=== PATIENT | male | born 1950 | race Caucasian/White ===

== ENCOUNTER 2020-01-08 10:55 | Outpatient (CLI) | payer MEDICARE, SELFPAY ==
[2020-01-08 12:53] VITALS: O2SAT 88; O2SAT 93
== END 2020-01-08 10:56 | disposition home or self-care (01) ==
LOC: RT 10:59
PROVIDERS: Family Provider Nurse Practitioner; PCP Nurse Practitioner; Visit Provider Internal Medicine Critical Care Medicine
DX: R06.02 Shortness of breath (principal)
CPT/HCPCS: 94010; 94729

== ENCOUNTER → 2020-02-05 15:17 | Outpatient (BNVA) | payer MEDICARE, SELFPAY | PROVIDERS: Family Provider Nurse Practitioner; PCP Nurse Practitioner; Visit Provider Nurse Practitioner | DX: E11.65 Type 2 diabetes mellitus with hyperglycemia (principal); I10 Essential (primary) hypertension; I25.10 Atherosclerotic heart disease of native coronary artery without angina pectoris; Z98.61 Coronary angioplasty status; M54.32 Sciatica, left side; R12 Heartburn | CPT/HCPCS: 80053; 80061; 81003; 83036; 83721 ==

== ENCOUNTER → 2020-07-19 09:01 | Outpatient (BNVA) | payer MEDICARE, SELFPAY | PROVIDERS: Family Provider Nurse Practitioner; PCP Nurse Practitioner; Visit Provider Nurse Practitioner | DX: E11.65 Type 2 diabetes mellitus with hyperglycemia (principal); I10 Essential (primary) hypertension; I25.10 Atherosclerotic heart disease of native coronary artery without angina pectoris; M54.32 Sciatica, left side; Z98.61 Coronary angioplasty status; R12 Heartburn | CPT/HCPCS: 80053; 80061; 81000; 83036; 83721 ==

== ENCOUNTER → 2020-12-31 13:58 | Outpatient (BNVA) | payer MEDICARE, SELFPAY | PROVIDERS: Family Provider Nurse Practitioner; PCP Nurse Practitioner; Visit Provider Nurse Practitioner | DX: E11.65 Type 2 diabetes mellitus with hyperglycemia (principal); I25.10 Atherosclerotic heart disease of native coronary artery without angina pectoris; I10 Essential (primary) hypertension; M54.32 Sciatica, left side; R12 Heartburn; J30.9 Allergic rhinitis, unspecified | CPT/HCPCS: 80053; 80061; 81000; 83036; 83721 ==

== ENCOUNTER → 2021-04-01 13:18 | Outpatient (BNVA) | payer MEDICARE, MEDICAID, SELFPAY | PROVIDERS: Family Provider Nurse Practitioner; PCP Nurse Practitioner; Visit Provider Nurse Practitioner | DX: I10 Essential (primary) hypertension (principal); E11.65 Type 2 diabetes mellitus with hyperglycemia; I25.10 Atherosclerotic heart disease of native coronary artery without angina pectoris; M54.32 Sciatica, left side; R12 Heartburn; J30.9 Allergic rhinitis, unspecified; G25.81 Restless legs syndrome | CPT/HCPCS: 80053; 80061; 81000; 83036; 83721 ==

== ENCOUNTER → 2021-07-01 14:40 | Outpatient (BNVA) | payer MEDICARE, MEDICAID, SELFPAY | PROVIDERS: Family Provider Nurse Practitioner; PCP Nurse Practitioner; Visit Provider Nurse Practitioner | DX: E11.65 Type 2 diabetes mellitus with hyperglycemia (principal); I10 Essential (primary) hypertension; I25.10 Atherosclerotic heart disease of native coronary artery without angina pectoris; J30.9 Allergic rhinitis, unspecified; R12 Heartburn; G25.81 Restless legs syndrome; R39.11 Hesitancy of micturition | CPT/HCPCS: 80053; 80061; 81000; 83036; 83721; 85025 ==

== ENCOUNTER → 2021-09-29 13:23 | Outpatient (BNVA) | payer MEDICARE, MEDICAID, SELFPAY | PROVIDERS: Family Provider Nurse Practitioner; PCP Nurse Practitioner; Visit Provider Nurse Practitioner | DX: E11.65 Type 2 diabetes mellitus with hyperglycemia (principal); E55.9 Vitamin D deficiency, unspecified | CPT/HCPCS: 80053; 81000; 82306; 83036 ==

== ENCOUNTER → 2021-10-15 14:14 | Outpatient (BNVA) | payer MEDICARE, MEDICAID, SELFPAY | PROVIDERS: Family Provider Nurse Practitioner; PCP Nurse Practitioner; Referring Provider Nurse Practitioner; Visit Provider Orthopaedic Surgery | DX: M25.561 Pain in right knee (principal); M25.562 Pain in left knee; M17.0 Bilateral primary osteoarthritis of knee; M21.162 Varus deformity, not elsewhere classified, left knee; M21.161 Varus deformity, not elsewhere classified, right knee | CPT/HCPCS: 73560; 73565 ==

== ENCOUNTER → 2021-11-11 10:52 | Outpatient (BNVA) | payer MEDICARE, SELFPAY | PROVIDERS: Family Provider Nurse Practitioner; PCP Nurse Practitioner; Visit Provider Nurse Practitioner | DX: Z20.822 Contact with and (suspected) exposure to COVID-19 (principal) | CPT/HCPCS: 87635 ==

== ENCOUNTER 2021-11-13 08:30 | Outpatient (CLI) | payer MEDICARE, SELFPAY ==
[2021-11-13 08:38] VITALS: BP 148/74; PULSE 111; RESP 22; TEMP 35.7; O2SAT 99; BMI 38.0
[2021-11-13 10:00] VITALS: BP 137/78; PULSE 106; RESP 21; TEMP 35.7; O2SAT 97
[2021-11-13 11:00] VITALS: BP 140/78; PULSE 110; RESP 20; TEMP 36.1; O2SAT 99
== END 2021-11-13 08:31 | disposition home or self-care (01) ==
LOC: OPS 08:31
PROVIDERS: PCP Nurse Practitioner; Visit Provider Nurse Practitioner
DX: U07.1 COVID-19 (principal)
CPT/HCPCS: 96365

== ENCOUNTER 2021-12-03 07:50 | Outpatient (CLI) | payer MEDICARE, MEDICAID, SELFPAY ==
--- NOTE | 2021-12-03 07:58 | CT_ITS ---
WS: [id number] CT HEAD TECHNIQUE: Noncontrast CT of the head obtained from the skullbase to the vertex. CLINICAL INFORMATION: R51.9 - Headache, unspecified COMPARISON: February 19, 2017 DLP: 2433.[address] scans at [facility] use at least one of these dose optimization techniques: automated e xposure control; mA and/or kV adjustment per patient size (includes targeted exams where dose is matc hed to clinical indication); or iterative reconstruction. FINDINGS: No evidence of intracranial hemorrhage or mass effect. Ventricular system and basal cisterns are loomis nt. Mild small vessel changes with mild parenchymal volume loss. No extra-axial fluid collections. No evidence of mass or mass effect. 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 Small amount of low-attenuation change in this area along th e anterior limb internal capsule likely due to a small amount of chronic ischemia or progressed small vessel change. No evidence of recent hemorrhage. Paranasal sinuses and mastoid air cells are well aerated. Secretions in the sphenoid sinus. .Normal v isualized soft tissues. CT/CT head wo con* [id number] IMPRESSION: 1. No evidence of intracranial hemorrhage or mass effect. 2. Mild small vessel changes with mild parenchymal volume loss. 3. 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 No evidence of recent hemorrhage. Small amount of low-attenuation change in this area robert g the anterior limb left internal capsule likely due to progressed small vessel changes or small amount of chronic ischemia. 4. No other significant changes from previous. 5. No acute intracranial findings.
== END 2021-12-03 07:51 | disposition home or self-care (01) ==
PROVIDERS: PCP Nurse Practitioner; Visit Provider Nurse Practitioner
DX: R51.9 Headache, unspecified (principal); Q28.3 Other malformations of cerebral vessels
CPT/HCPCS: 70450

== ENCOUNTER → 2022-01-19 15:11 | Outpatient (BNVA) | payer MEDICARE, MEDICAID, SELFPAY | PROVIDERS: PCP Nurse Practitioner; Visit Provider Nurse Practitioner | DX: I25.10 Atherosclerotic heart disease of native coronary artery without angina pectoris (principal); I10 Essential (primary) hypertension; M54.32 Sciatica, left side; E11.65 Type 2 diabetes mellitus with hyperglycemia; R12 Heartburn; J30.9 Allergic rhinitis, unspecified; R39.11 Hesitancy of micturition | CPT/HCPCS: 80053; 81000; 83036; 84443 ==

== ENCOUNTER → 2022-04-01 09:45 | Outpatient (BNVA) | payer MEDICARE, MEDICAID, SELFPAY | PROVIDERS: PCP Nurse Practitioner; Visit Provider Nurse Practitioner | DX: M25.512 Pain in left shoulder (principal); E11.65 Type 2 diabetes mellitus with hyperglycemia | CPT/HCPCS: 73030; 80053; 80061; 81000; 83036; 83721; 84443 ==

== ENCOUNTER → 2022-05-19 13:23 | Outpatient (BNVA) | payer MEDICARE, SELFPAY | PROVIDERS: PCP Nurse Practitioner; Referring Provider Nurse Practitioner; Visit Provider Orthopaedic Surgery | DX: S43.402A Unspecified sprain of left shoulder joint, initial encounter (principal); W10.9XXA Fall (on) (from) unspecified stairs and steps, initial encounter | CPT/HCPCS: 99203 ==

== ENCOUNTER 2022-05-26 06:00 | Outpatient (RCR) | payer MEDICARE, MEDICAID, SELFPAY | END 2022-05-28 23:59 | disposition home or self-care (01) | LOC: TPT 06:00 | PROVIDERS: PCP Nurse Practitioner; Referring Provider Orthopaedic Surgery; Visit Provider Orthopaedic Surgery | DX: S46.912A Strain of unspecified muscle, fascia and tendon at shoulder and upper arm level, left arm, initial encounter (principal); X50.9XXA Other and unspecified overexertion or strenuous movements or postures, initial encounter | CPT/HCPCS: 97162 ==

== ENCOUNTER 2022-05-29 06:00 | Outpatient (RCR) | payer MEDICARE, MEDICAID, SELFPAY | END 2022-06-28 23:59 | disposition home or self-care (01) | LOC: TPT 06:00 | PROVIDERS: PCP Nurse Practitioner; Referring Provider Orthopaedic Surgery; Visit Provider Orthopaedic Surgery | DX: S46.912D Strain of unspecified muscle, fascia and tendon at shoulder and upper arm level, left arm, subsequent encounter (principal); X58.XXXD Exposure to other specified factors, subsequent encounter | CPT/HCPCS: 97110; 97140 ==

== ENCOUNTER → 2022-07-28 10:51 | Outpatient (BNVA) | payer MEDICARE, MEDICAID, SELFPAY | PROVIDERS: PCP Nurse Practitioner; Visit Provider Nurse Practitioner | DX: E03.8 Other specified hypothyroidism (principal); E11.65 Type 2 diabetes mellitus with hyperglycemia; I25.10 Atherosclerotic heart disease of native coronary artery without angina pectoris | CPT/HCPCS: 80053; 80061; 83036; 83721; 84443; 85025 ==

== ENCOUNTER → 2022-10-20 13:46 | Outpatient (BNVA) | payer MEDICARE, MEDICAID, SELFPAY | PROVIDERS: PCP Nurse Practitioner; Visit Provider Nurse Practitioner | DX: E11.65 Type 2 diabetes mellitus with hyperglycemia (principal); I10 Essential (primary) hypertension | CPT/HCPCS: 80053; 80061; 81000; 83036; 83721; 84443; 85025 ==

== ENCOUNTER → 2023-01-12 13:15 | Outpatient (BNVA) | payer MEDICARE, MEDICAID, SELFPAY | PROVIDERS: PCP Nurse Practitioner; Visit Provider Nurse Practitioner | DX: E03.8 Other specified hypothyroidism (principal); E11.65 Type 2 diabetes mellitus with hyperglycemia | CPT/HCPCS: 80053; 80061; 81000; 83036; 84443; 85025 ==

== ENCOUNTER 2023-03-31 13:37 | Outpatient (CLI) | payer MEDICARE, MEDICAID, SELFPAY ==
--- NOTE | 2023-03-31 13:47 | MR_ITS ---
WS: [id number] MRI HEAD WITHOUT CONTRAST TECHNIQUE: Sagittal T1, axial diffusion, axial T2, axial FLAIR, axial T1, axial T2 thin and axial T1o rbit images. Complete orbit exam not completed. Limited examination due to motion artifact. CLINICAL INFORMATION: PRIMARY OPTIC ATROPHY COMPARISON: CT 12/03/21 FINDINGS: Exam is limited due to motion artifact. Patient unable to tolerate contrast portion of exam ination. Unable to complete orbit protocol due to patient motion No evidence of restricted diffusion to suggest acute ischemia. Ventricular system and basal cisterns are patent. Mild small vessel changes. No significant parenchymal volume loss. Normal posterior fossa . Normal vascular flow voids at the skull base. No extra-axial fluid collections. Orbits not well evaluated due to significant motion artifact. Only limited examination was performed. No visualized intraconal or globe mass. Optic nerves not well evaluated. MR/MR head orbits wo con 35085/40 IMPRESSION: Limited examination due to motion artifact. Optic nerves not well e valuated. Orbit protocol was not completed. 1. No evidence of restricted diffusion to suggest acute ischemia. 2. Mild small vessel changes. Small vessel changes in the rhoda. No significant parenchymal volume loss. 3. No visualized intraconal or intraorbital mass. Optic nerves not well evalua leah due to limited examination and motion. 4. Paranasal sinuses and mastoid air cells well aerated. 5. No other suspicious findings.
== END 2023-03-31 13:38 | disposition home or self-care (01) ==
LOC: RAD 13:39
PROVIDERS: PCP Nurse Practitioner; Visit Provider Ophthalmology
DX: H47.213 Primary optic atrophy, bilateral (principal)
CPT/HCPCS: 70336; 70551

== ENCOUNTER 2023-04-06 14:57 | Emergency (ER) | payer MEDICARE, MEDICAID, SELFPAY ==
[2023-04-06] VITALS (10 sets, daily range): BP systolic 108–134; BP diastolic 62–77; PULSE 90–113; RESP 15–32; O2SAT 76–99
--- NOTE | 2023-04-06 15:24 | ECG_ITS ---
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 Measurements Intervals [place] Rate: 95 P: 23 TN: 190 QRS: -18 QRSD: 106 T: 34 QT: 320 QTc: 403 Interpretive Statements SINUS RHYTHM INCOMPLETE RIGHT BUNDLE BRANCH BLOCK [90+ ms QRS DURATION, TERMINAL R IN V1/V2, 40+ ms S IN I/aVL/V4/V5/V6] Compared to ECG 04/07/2016 06:28:38 No significant changes Electronically Signed On 04-06-2023 16:56:49 CDT by Isacc Renee M.D. [id number]
--- NOTE | 2023-04-06 15:24 | XRR_ITS ---
PROCEDURE INFORMATION: Exam: XR Chest Exam date and time: 04/06/2023 3:54 PM Age: 73 years old Clinical indication: Cough and dyspnea; Prior surgery; Surgery date: 6+ months; Surgery type: Stent; Patient HX: Low o2; Additional info: Dyspnea/cough TECHNIQUE: Imaging protocol: Radiologic exam of the chest. Views: 1 view. COMPARISON: CT angio chest abdomen 02/19/2017 8:18 AM FINDINGS: Lungs: Unremarkable. No consolidation. Pleural spaces: Unremarkable. No pleural effusion. No pneumothorax. Heart/Mediastinum: Unremarkable. No cardiomegaly. Bones/joints: Unremarkable. XR/XR chest 1V portable [id number] IMPRESSION: No acute findings.
--- NOTE | 2023-04-06 15:53 | ED_ITS ---
Documented by User: Nabor Copeland DO 04/07/23 06:14 HPI - SOB/Dyspnea General: Chief Complaint: Shortness of Breath/Dyspnea Stated Complaint: low O2 Time Seen by Provider: 04/06/23 15:13 Source: patient Mode of arrival: ambulatory History of Present Illness: HPI Narrative: 73-year-old male presents to the emergency room with complaints of shortness of breath. Normally wears 5 to 6 L at home. He is intermittently had chest pain he feels more confused as well on arrival here to see awake and alert and oriented shortly after arrival he was titrated down to 3 L in the bedside he is 93 to 95%. He is not having any chest pain at this time he denies any fever sweats chills or productive cough. MD elicited complaint: shortness of breath and cough Timing: constant Severity: moderate Exacerbating factors: exertion and coughing Relieving factors: oxygen, rest and bronchodilators Associated symptoms: Deny abdominal pain, chest congestion, chest pain, cough, diaphoresis, dizziness, extremity pain, fever(s), hemoptysis, lightheadedness, myalgias, nausea, orthopnea, palpitations, paresthesias, polydipsia, polyuria, rash, sense of impending doom, syncope or vomiting Treatment prior to arrival: oxygen Review of Systems Const: Denies: fever(s) or diaphoresis Card: Denies: chest pain, palpitations, lightheadedness, syncope or orthopnea Resp: Denies: hemoptysis or chest congestion GI: Denies: abdominal pain, nausea or vomiting Musc: Denies: extremity pain Neuro: Denies: dizziness Endo: Denies: polyuria or polydipsia [facility] ED PFSH: Medical History Acquired skin tag Acute maxillary sinusitis, unspecified Aneurysm of unspecified site ASHD (arteriosclerotic heart disease) Atrial tachycardia Cellulitis of left eyelid COVID-19 Edema of extremities Enrolled in chronic care management Essential (primary) hypertension Heartburn Helminthiasis, unspecified Hypoxia Left sciatic nerve pain Mixed anxiety depressive disorder O2 dependent Osteoarthritis of both knees Platelets decreased Shortness of breath Type 2 diabetes mellitus with hyperglycemia Vitamin D insufficiency Surgical History H/O eye surgery Left S/P PTCA (percutaneous transluminal coronary angioplasty) Family History Sister Cancer Other CAD (coronary artery disease) Diabetes Stroke Social History Smoking and tobacco status: former smoker Second hand smoke exposure: No Smoking risk assessment/counseling performed?: No Alcohol intake: former Desire information about alcohol rehabilitation?: No Counseling given: No Substance/Drug Use: never Desire information about substance/drug rehabilitation?: No Counseling given: No Adopted: No Caregiver/support person: No Lives independently: Yes Household members: spouse Housing: House Marital status: Current occupational status: retired Do you think of yourself as: Straight/Heterosexual Current gender identity: Male Physical Exam Const: GENERAL APPEARANCE: cooperative and comfortable ORIENTATION/CONSCIOUSNESS: Yes awake, Yes oriented to person, Yes oriented to place and Yes oriented to time HENMT: COMMON NORMALS: normocephalic, atraumatic and hearing grossly normal bilaterally HEAD & SCALP: normocephalic and atraumatic Resp: AUSCULTATION: wheezes Cardio: COMMON NORMALS: regular rhythm and No murmurs present (Cardio) RATE: tachycardic RHYTHM: regular rhythm GI: COMMON NORMALS: Soft to palpation and No hepatosplenomegaly present AUSCULTATION: Yes normoactive bowel sounds PALPATION: Yes Soft to palpation, No Tenderness to palpation present (GI), No Guarding due to palpation present (GI) and Yes No hepatosplenomegaly present Extremity: COMMON NORMALS: normal to inspection, capillary refill normal, no clubbing, cyanosis or edema, no calf tenderness and no pedal edema Neuro: SENSORIUM/ORIENTATION: Yes oriented to person, Yes oriented to place and Yes oriented to time Skin: COMMON NORMALS: no rashes or lesions noted GENERAL SKIN EXAM: no rashes or lesions noted Course Vital Signs: Vital signs: Vital Signs Pulse Rate 90 04/06/23 18:30 Respiratory Rate 19 H 04/06/23 18:30 Blood Pressure 134/77 04/06/23 18:30 Pulse Oximetry 99 04/06/23 18:30 Oxygen Delivery Me thod Nasal Cannula 04/06/23 15:03 Oxygen Flow Rate 6 04/06/23 15:03 Fraction of Inspir ed Oxygen 25 04/06/23 16:21 MDM - SOB/Dyspnea Medical Decision Making Care signed out to Dr. Caballero at change of shift. See final notes for diagnosis and disposition. 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 Did put him back on his normal 5 L of oxygen he is 98% here blood work and x-ray here are normal I did speak to him about his ABG and offered him admission he states he feels much improved and he just wants to go home feel he is stable for discharge at this time he is to follow-up with PCP and return if worsening he understands agrees to plan. Lab Data 04/06/23 15:47 04/06/23 15:47 Labs/Radiology: Radiology Impressions Chest X-Ray 04/06/23 15:24 IMPRESSION: No acute findings. Laboratory Results WBC 10.0 10^3/uL (4.0-10.0) 04/06/23 15:47 RBC 4.20 10^6/uL (4.1-5.3) 04/06/23 15:47 Hgb 12.5 g/dL (11.7-16.6) 04/06/23 15:47 Hct 42.0 % (42.0-52.0) 04/06/23 15:47 MCV 100.0 fl (80-94) H 04/06/23 15:47 MCH 29.8 pg (28.0-34.0) 04/06/23 15:47 MCHC 29.8 g/dL (30.0-36.0) L 04/06/23 15:47 RDW 12.9 % (12.1-15.1) 04/06/23 15:47 Plt Count 163 10^3/cmm (130-400) 04/06/23 15:47 MPV 10.4 fL (7.4-10.4) 04/06/23 15:47 Neut % (Auto) 73.2 % 04/06/23 15:47 Lymph % (Auto) 17.4 % 04/06/23 15:47 Warrick % (Auto) 7.2 % 04/06/23 15:47 Eos % (Auto) 1.6 % 04/06/23 15:47 Baso % (Auto) 0.3 % 04/06/23 15:47 Neut # (Auto) 7.28 10^3/uL (1.8-7.7) 04/06/23 15:47 Lymph # (Auto) 1.7 10^3/uL (0.8-4.8) 04/06/23 15:47 Warrick # (Auto) 0.7 10^3/uL (0.2-0.9) 04/06/23 15:47 Eos # (Auto) 0.2 10^3/uL (0.0-0.8) 04/06/23 15:47 Baso # (Auto) 0.0 10^3/uL (0.0-0.1) 04/06/23 15:47 Nucleated RBC % (auto) 0 % 04/06/23 15:47 Nucleated RBCs # 0.0 /100WBC 04/06/23 15:47 Specimen Type Arterial 04/06/23 17:35 Sample Site Radial, right 04/06/23 17:35 ABG pH 7.32 (7.35-7.45) L 04/06/23 17:35 ABG pCO2 63.9 mmHg (35-45) H* 04/06/23 17:35 ABG pO2 67.8 mmHg (80.0-100.0) L 04/06/23 17:35 ABG HCO3 32.9 mmol/L (22-26) H 04/06/23 17:35 ABG O2 Saturation 92.6 04/06/23 17:35 ABG Base Excess 5.0 mmol/L (-2.0-2.0) H 04/06/23 17:35 Drake Test Pos 04/06/23 17:35 A-a O2 Gradient 4.3 mmHg (5-10) L 04/06/23 17:35 Hematocrit 38.2 % (42-52) L 04/06/23 17:35 Hgb O2 Saturation 91.5 % (95-100) L 04/06/23 17:35 Carboxyhemoglobin 0.4 %THgb (0.4-20.1) 04/06/23 17:35 Methemoglobin 0.8 % (0.4-1.5) 04/06/23 17:35 Total Hemoglobin 12.5 g/dL (14-18) L 04/06/23 17:35 Sodium 138.0 mmol/L (131-143) 04/06/23 17:35 Potassium 5.7 mmol/L (3.5-5.0) H 04/06/23 17:35 Glucose 129.0 mg/dL (70-115) H 04/06/23 17:35 Ionized Calcium 1.2 mmol/L (1.1-1.4) 04/06/23 17:35 O2 Delivery Device Bipap 04/06/23 17:35 O2 Liters/Min 2.0 % 04/06/23 15:54 FiO2 25.0 % 04/06/23 17:35 Forming Acid Dumper ID Walci 04/06/23 17:35 Sodium 139 mmol/L (136-145) 04/06/23 15:47 Potassium 4.4 mmol/L (3.5-5.1) 04/06/23 15:47 Chloride 99 mmol/L (98-107) 04/06/23 15:47 Carbon Dioxide 34 mmol/L (22-29) H 04/06/23 15:47 Anion Gap 10.4 (5-19) 04/06/23 15:47 BUN 15 mg/dL (8-23) 04/06/23 15:47 Creatinine 0.8 mg/dL (0.7-1.2) 04/06/23 15:47 GFR Calculation Not Reportable 04/06/23 15:47 Glucose 144 mg/dL (65-115) H 04/06/23 15:47 Calculated Osmolality 291 mOsm/kg (285-295) 04/06/23 15:47 Calcium 9.2 mg/dL (8.5-10.5) 04/06/23 15:47 Magnesium 2.3 mg/dL (1.7-2.3) 04/06/23 15:47 Total Bilirubin 0.2 mg/dL (0.15-1.2) 04/06/23 15:47 AST 18 U/L (0-40) 04/06/23 15:47 ALT 22 U/L (0-41) 04/06/23 15:47 Alkaline Phosphatase 75 U/L (40-130) 04/06/23 15:47 Creatine Kinase 37 U/L (39-308) L 04/06/23 15:47 Troponin T Baseline 23 ng/L (0-15) H 04/06/23 15:47 Troponin T 120 Minute 19.61 ng/L (0-15) H 04/06/23 17:49 Delta Troponin T -3.39 ABS# (0-10) L 04/06/23 17:49 NT-Pro-B Natriuret Pep 36 pg/mL (0-125) 04/06/23 15:47 Total Protein 6.3 g/dL (6.6-8.7) L 04/06/23 15:47 Albumin 4.2 g/dL (3.5-5.2) 04/06/23 15:47 Globulin 2.1 g/dL (1.3-4.6) 04/06/23 15:47 Urine Color Yellow (Yellow) 04/06/23 16:58 Urine Appearance Clear (CLEAR) 04/06/23 16:58 Urine pH 8 (5-7) H 04/06/23 16:58 Ur Specific [place] 1.015 (1.005-1.030) 04/06/23 16:58 Urine Protein Neg (Negative) 04/06/23 16:58 Urine Glucose (UA) 4+ (Normal) H 04/06/23 16:58 Urine Ketones Negative (Negative) 04/06/23 16:58 Urine Blood Neg (Negative) 04/06/23 16:58 Urine Nitrate Negative (Negative) 04/06/23 16:58 Urine Bilirubin Neg (Negative) 04/06/23 16:58 Prot Sulfosalicylic Acd Negative (Negative) 04/06/23 16:58 Urine Urobilinogen Norm mg/dL (Negative) 04/06/23 16:58 Ur Leukocyte Esterase Negative (Negative) 04/06/23 16:58 Discharge Plan Discharge Patient Disposition: Home Clinical Impression: Shortness of breath, Hypercapnia Condition: Stable Prescriptions: No Action aspirin 325 mg tablet 325 mg PO DAILY calcium carbonate [Calcium 600] 600 mg calcium (1,500 mg) tablet 600 mg PO DAILY Oliver Multivitamin For Men 200-175-250 mcg tablet 1 tab PO DAILY (DME) lancets [OneTouch Delica Lancets] 33 gauge misc See Rx Instructions .ROUTE .MEDSUPPLY Qty: 100 Rx Instructions: As directed diclofenac sodium [Voltaren] 1 % gel 4 gm TOPICAL TID PRN (Reason: Pain) clopidogrel 75 mg tablet 75 mg PO DAILY Qty: 30 2RF duloxetine 60 mg capsule,delayed release(DR/EC) 60 mg PO BID Qty: 60 2RF Jardiance 25 mg tablet 25 mg PO QAM Qty: 30 2RF famotidine [Pepcid] 40 mg tablet 40 mg PO DAILY Qty: 30 2RF fenofibrate nanocrystallized [Tricor] 145 mg tablet 145 mg PO DAILY Qty: 30 2RF losartan 50 mg tablet 50 mg PO DAILY Qty: 30 2RF metoprolol succinate [Toprol XL] 25 mg tablet extended release 24 hr 25 mg PO DAILY Qty: 30 2RF potassium chloride 10 mEq capsule, extended release 10 meq PO DAILY Qty: 30 2RF tamsulosin [Flomax] 0.4 mg capsule 0.4 mg PO DAILY Qty: 30 2RF topiramate [Topamax] 50 mg tablet 50 mg PO BID Qty: 60 2RF neomycin-polymyxin B-dexameth [Maxitrol] 3.5mg/mL-10,000 unit/mL-0.1 % drops,suspension See Rx Instructions .ROUTE .COMPLEX Qty: 5 0RF Rx Instructions: 2 drop in right ear at bedtime 1 week; (DME) Hospital Bed See Rx Instructions .Route .MEDSUPPLY Qty: 1 0RF Rx Instructions: As directed (DME) lancets [Ultra Fine Lancets] 30 gauge misc See Rx Instructions .ROUTE .MEDSUPPLY Qty: 100 0RF Rx Instructions: As directed (DME) OneTouch Ultra Blue Test Strip Strip See Rx Instructions .ROUTE .MEDSUPPLY Qty: 50 5RF Rx Instructions: 1 daily (DME) oxygen concentrator w/ portable See Rx Instructions .Route .MEDSUPPLY Qty: 1 0RF Rx Instructions: As directed oxygen concentrator w/portable home fill @4 liters n/c 99 months levothyroxine 100 mcg tablet 100 mcg PO DAILY Qty: 30 2RF Lasix 40 mg tablet 40 mg PO QAM tizanidine 2 mg tablet 2 mg PO BEDTIME PRN (Reason: Muscle Spasm) Cardizem 30 mg tablet 30 mg PO BID Flonase Allergy Relief 50 mcg/actuation spray,suspension 1 spray INTRANASAL Q12H PRN (Reason: Nasal Congestion) Rx Instructions: administer into each nostril Trulicity 1.5 mg/0.5 mL pen injector 1.5 mg SUBCUT Q7D Rx Instructions: On Sundays Repatha SureClick 140 mg/mL pen injector 140 mg SUBCUT Q14D melatonin 10 mg Tablet 10 mg PO BEDTIME Discharge Orders: Discharge ED (Routine); Ordered 04/06/23 Ordered By: Agapito Caballero Referrals: Sade Zhu, HARVEY [Primary Care Provider] - 1-3 days Discharge Diet: Advance as tolerated Discharge Activity: Resume usual activity Patient Instructions: Dyspnea (ED) Coding Level of Care Code ED [employer] Etch Operator for Chg Fwd Documented by User: Agapito Caballero MD 04/06/23 18:50 HPI - SOB/Dyspnea General: Chief Complaint: Shortness of Breath/Dyspnea Stated Complaint: low O2 Time Seen by Provider: 04/06/23 15:13 Source: patient History of Present Illness: HPI Narrative: . PFSH ED PFSH: Medical History Acquired skin tag Acute maxillary sinusitis, unspecified Aneurysm of unspecified site ASHD (arteriosclerotic heart disease) Atrial tachycardia Cellulitis of left eyelid COVID-19 Edema of extremities Enrolled in chronic care management Essential (primary) hypertension Heartburn Helminthiasis, unspecified Hypoxia Left sciatic nerve pain Mixed anxiety depressive disorder O2 dependent Osteoarthritis of both knees Platelets decreased Shortness of breath Type 2 diabetes mellitus with hyperglycemia Vitamin D insufficiency Surgical History H/O eye surgery Left S/P PTCA (percutaneous transluminal coronary angioplasty) Family History Sister Cancer Other CAD (coronary artery disease) Diabetes Stroke Social History Smoking and tobacco status: former smoker Second hand smoke exposure: No Smoking risk assessment/counseling performed?: No Alcohol intake: former Desire information about alcohol rehabilitation?: No Counseling given: No Substance/Drug Use: never Desire information about substance/drug rehabilitation?: No Counseling given: No Adopted: No Caregiver/support person: No Lives independently: Yes Household members: spouse Housing: House Marital status: Current occupational status: retired Do you think of yourself as: Straight/Heterosexual Current gender identity: Male Course Vital Signs: Vital signs: Vital Signs Pulse Rate 90 04/06/23 18:30 Respiratory Rate 19 H 04/06/23 18:30 Blood Pressure 134/77 04/06/23 18:30 Pulse Oximetry 99 04/06/23 18:30 Oxygen Delivery Me thod Nasal Cannula 04/06/23 15:03 Oxygen Flow Rate 6 04/06/23 15:03 Fraction of Inspir ed Oxygen 25 04/06/23 16:21 MDM - SOB/Dyspnea Medical Decision Making Patient presents here with some dyspnea he is hypercapnic he likely is chronically hypercapnic repeat ABG showed the same. Did put him back on his normal 5 L of oxygen he is 98% here blood work and x-ray here are normal I did speak to him about his ABG and offered him admission he states he feels much improved and he just wants to go home feel he is stable for discharge at this time he is to follow-up with PCP and return if worsening he understands agrees to plan. Medical Records I reviewed the patient's medical records. Lab Data I reviewed the patient's lab results. 04/06/23 15:47 04/06/23 15:47 Labs/Radiology: Radiology Impressions Chest X-Ray 04/06/23 15:24 IMPRESSION: No acute findings. Laboratory Results WBC 10.0 10^3/uL (4.0-10.0) 04/06/23 15:47 RBC 4.20 10^6/uL (4.1-5.3) 04/06/23 15:47 Hgb 12.5 g/dL (11.7-16.6) 04/06/23 15:47 Hct 42.0 % (42.0-52.0) 04/06/23 15:47 MCV 100.0 fl (80-94) H 04/06/23 15:47 MCH 29.8 pg (28.0-34.0) 04/06/23 15:47 MCHC 29.8 g/dL (30.0-36.0) L 04/06/23 15:47 RDW 12.9 % (12.1-15.1) 04/06/23 15:47 Plt Count 163 10^3/cmm (130-400) 04/06/23 15:47 MPV 10.4 fL (7.4-10.4) 04/06/23 15:47 Neut % (Auto) 73.2 % 04/06/23 15:47 Lymph % (Auto) 17.4 % 04/06/23 15:47 [place] % (Auto) 7.2 % 04/06/23 15:47 Eos % (Auto) 1.6 % 04/06/23 15:47 Baso % (Auto) 0.3 % 04/06/23 15:47 Neut # (Auto) 7.28 10^3/uL (1.8-7.7) 04/06/23 15:47 Lymph # (Auto) 1.7 10^3/uL (0.8-4.8) 04/06/23 15:47 Warrick # (Auto) 0.7 10^3/uL (0.2-0.9) 04/06/23 15:47 Eos # (Auto) 0.2 10^3/uL (0.0-0.8) 04/06/23 15:47 Baso # (Auto) 0.0 10^3/uL (0.0-0.1) 04/06/23 15:47 Nucleated RBC % (auto) 0 % 04/06/23 15:47 Nucleated RBCs # 0.0 /100WBC 04/06/23 15:47 Specimen Type Arterial 04/06/23 17:35 Sample Site Radial, right 04/06/23 17:35 ABG pH 7.32 (7.35-7.45) L 04/06/23 17:35 ABG pCO2 63.9 mmHg (35-45) H* 04/06/23 17:35 ABG pO2 67.8 mmHg (80.0-100.0) L 04/06/23 17:35 ABG HCO3 32.9 mmol/L (22-26) H 04/06/23 17:35 ABG O2 Saturation 92.6 04/06/23 17:35 ABG Base Excess 5.0 mmol/L (-2.0-2.0) H 04/06/23 17:35 Drake Test Pos 04/06/23 17:35 A-a O2 Gradient 4.3 mmHg (5-10) L 04/06/23 17:35 Hematocrit 38.2 % (42-52) L 04/06/23 17:35 Hgb O2 Saturation 91.5 % (95-100) L 04/06/23 17:35 Carboxyhemoglobin 0.4 %THgb (0.4-20.1) 04/06/23 17:35 Methemoglobin 0.8 % (0.4-1.5) 04/06/23 17:35 Total Hemoglobin 12.5 g/dL (14-18) L 04/06/23 17:35 Sodium 138.0 mmol/L (131-143) 04/06/23 17:35 Potassium 5.7 mmol/L (3.5-5.0) H 04/06/23 17:35 Glucose 129.0 mg/dL (70-115) H 04/06/23 17:35 Ionized Calcium 1.2 mmol/L (1.1-1.4) 04/06/23 17:35 O2 Delivery Device Bipap 04/06/23 17:35 O2 Liters/Min 2.0 % 04/06/23 15:54 FiO2 25.0 % 04/06/23 17:35 Forming Acid Dumper ID Walci 04/06/23 17:35 Sodium 139 mmol/L (136-145) 04/06/23 15:47 Potassium 4.4 mmol/L (3.5-5.1) 04/06/23 15:47 Chloride 99 mmol/L (98-107) 04/06/23 15:47 Carbon Dioxide 34 mmol/L (22-29) H 04/06/23 15:47 Anion Gap 10.4 (5-19) 04/06/23 15:47 BUN 15 mg/dL (8-23) 04/06/23 15:47 Creatinine 0.8 mg/dL (0.7-1.2) 04/06/23 15:47 GFR Calculation Not Reportable 04/06/23 15:47 Glucose 144 mg/dL (65-115) H 04/06/23 15:47 Calculated Osmolality 291 mOsm/kg (285-295) 04/06/23 15:47 Calcium 9.2 mg/dL (8.5-10.5) 04/06/23 15:47 Magnesium 2.3 mg/dL (1.7-2.3) 04/06/23 15:47 Total Bilirubin 0.2 mg/dL (0.15-1.2) 04/06/23 15:47 AST 18 U/L (0-40) 04/06/23 15:47 ALT 22 U/L (0-41) 04/06/23 15:47 Alkaline Phosphatase 75 U/L (40-130) 04/06/23 15:47 Creatine Kinase 37 U/L (39-308) L 04/06/23 15:47 Troponin T Baseline 23 ng/L (0-15) H 04/06/23 15:47 Troponin T 120 Minute 19.61 ng/L (0-15) H 04/06/23 17:49 Delta Troponin T -3.39 ABS# (0-10) L 04/06/23 17:49 NT-Pro-B Natriuret Pep 36 pg/mL (0-125) 04/06/23 15:47 Total Protein 6.3 g/dL (6.6-8.7) L 04/06/23 15:47 Albumin 4.2 g/dL (3.5-5.2) 04/06/23 15:47 Globulin 2.1 g/dL (1.3-4.6) 04/06/23 15:47 Urine Color Yellow (Yellow) 04/06/23 16:58 Urine Appearance Clear (CLEAR) 04/06/23 16:58 Urine pH 8 (5-7) H 04/06/23 16:58 Ur Specific [place] 1.015 (1.005-1.030) 04/06/23 16:58 Urine Protein Neg (Negative) 04/06/23 16:58 Urine Glucose (UA) 4+ (Normal) H 04/06/23 16:58 Urine Ketones Negative (Negative) 04/06/23 16:58 Urine Blood Neg (Negative) 04/06/23 16:58 Urine Nitrate Negative (Negative) 04/06/23 16:58 Urine Bilirubin Neg (Negative) 04/06/23 16:58 Prot Sulfosalicylic Acd Negative (Negative) 04/06/23 16:58 Urine Urobilinogen Norm mg/dL (Negative) 04/06/23 16:58 Ur Leukocyte Esterase Negative (Negative) 04/06/23 16:58 Discharge Plan Discharge Patient Disposition: Home Clinical Impression: Shortness of breath, Hypercapnia Condition: Stable Prescriptions: No Action aspirin 325 mg tablet 325 mg PO DAILY calcium carbonate [Calcium 600] 600 mg calcium (1,500 mg) tablet 600 mg PO DAILY Oliver Multivitamin For Men 200-175-250 mcg tablet 1 tab PO DAILY (DME) lancets [OneTouch Delica Lancets] 33 gauge misc See Rx Instructions .ROUTE .MEDSUPPLY Qty: 100 Rx Instructions: As directed diclofenac sodium [Voltaren] 1 % gel 4 gm TOPICAL TID PRN (Reason: Pain) clopidogrel 75 mg tablet 75 mg PO DAILY Qty: 30 2RF duloxetine 60 mg capsule,delayed release(DR/EC) 60 mg PO BID Qty: 60 2RF Jardiance 25 mg tablet 25 mg PO QAM Qty: 30 2RF famotidine [Pepcid] 40 mg tablet 40 mg PO DAILY Qty: 30 2RF fenofibrate nanocrystallized [Tricor] 145 mg tablet 145 mg PO DAILY Qty: 30 2RF losartan 50 mg tablet 50 mg PO DAILY Qty: 30 2RF metoprolol succinate [Toprol XL] 25 mg tablet extended release 24 hr 25 mg PO DAILY Qty: 30 2RF potassium chloride 10 mEq capsule, extended release 10 meq PO DAILY Qty: 30 2RF tamsulosin [Flomax] 0.4 mg capsule 0.4 mg PO DAILY Qty: 30 2RF topiramate [Topamax] 50 mg tablet 50 mg PO BID Qty: 60 2RF neomycin-polymyxin B-dexameth [Maxitrol] 3.5mg/mL-10,000 unit/mL-0.1 % drops,suspension See Rx Instructions .ROUTE .COMPLEX Qty: 5 0RF Rx Instructions: 2 drop in right ear at bedtime 1 week; (DME) Hospital Bed See Rx Instructions .Route .MEDSUPPLY Qty: 1 0RF Rx Instructions: As directed (DME) lancets [Ultra Fine Lancets] 30 gauge misc See Rx Instructions .ROUTE .MEDSUPPLY Qty: 100 0RF Rx Instructions: As directed (DME) OneTouch Ultra Blue Test Strip Strip See Rx Instructions .ROUTE .MEDSUPPLY Qty: 50 5RF Rx Instructions: 1 daily (DME) oxygen concentrator w/ portable See Rx Instructions .Route .MEDSUPPLY Qty: 1 0RF Rx Instructions: As directed oxygen concentrator w/portable home fill @4 liters n/c 99 months levothyroxine 100 mcg tablet 100 mcg PO DAILY Qty: 30 2RF Lasix 40 mg tablet 40 mg PO QAM tizanidine 2 mg tablet 2 mg PO BEDTIME PRN (Reason: Muscle Spasm) Cardizem 30 mg tablet 30 mg PO BID Flonase Allergy Relief 50 mcg/actuation spray,suspension 1 spray INTRANASAL Q12H PRN (Reason: Nasal Congestion) Rx Instructions: administer into each nostril Trulicity 1.5 mg/0.5 mL pen injector 1.5 mg SUBCUT Q7D Rx Instructions: On Sundays Repatha SureClick 140 mg/mL pen injector 140 mg SUBCUT Q14D melatonin 10 mg Tablet 10 mg PO BEDTIME Discharge Orders: Discharge ED (Routine); Ordered 04/06/23 Ordered By: Agapito Caballero Referrals: Sade Zhu, BSW-C [Primary Care Provider] - 1-3 days Discharge Diet: Advance as tolerated Discharge Activity: Resume usual activity Patient Instructions: Dyspnea (ED) Coding Level of Care Code ED [employer] Etch Operator for Jonathan Peña
[2023-04-06 16:05] LABS: ABG PH Result 7.31 (7.35-7.45); Alveolar-Arterial Oxygen Gradi 1.7 mmHg (5-10); Arterial Blood Gas Hematocrit 39.9 % (42-52); Blood Gas Allen Test Pos; Blood Gas Operator Identificat WALCI; Blood Gas Sample Site Radial, right; Blood Gas Sample Type Arterial; Carboxyhemoglobin 0.4 %THgb (0.4-20.1); HCO3 ABG 32.1 mmol/L (22-26); HGB O2 Sat 88.5 % (95-100); Ionized Calcium Level - ABG 1.3 mmol/L (1.1-1.4); Methemoglobin 0.6 % (0.4-1.5); Oxygen Device NC; Oxygen Saturation ABG 89.5; PO2 ABG 59.5 mmHg (80.0-100.0); Potassium Level - ABG 4.3 mmol/L (3.5-5.0)
[2023-04-06 16:06] LABS: ABG PCO2 63.7 mmHg (35-45)
[2023-04-06 16:07] LABS: Basophils % 0.3 %; Eosinophils # 0.2 10^3/uL (0.0-0.8); Eosinophils % 1.6 %; Hemoglobin 12.5 g/dL (11.7-16.6); Lymphocytes # 1.7 10^3/uL (0.8-4.8); Lymphocytes % 17.4 %; Mean Corpuscular HGB Conc 29.8 g/dL (30.0-36.0); Mean Corpuscular Hemoglobin 29.8 pg (28.0-34.0); Mean Platelet Volume 10.4 fL (7.4-10.4); Monocytes # 0.7 10^3/uL (0.2-0.9); Monocytes % 7.2 %; Neutrophils # 7.28 10^3/uL (1.8-7.7); Neutrophils % 73.2 %; Nucleated Red Blood Cells % 0 %; Platelet Count 163 10^3/cmm (130-400); Red Cell Distribution Width 12.9 % (12.1-15.1)
[2023-04-06 16:38] LABS: Troponin(5th) Baseline 23 ng/L (0-15)
[2023-04-06 16:41] LABS: Alanine Aminotransferase 22 U/L (0-41); Albumin Level 4.2 g/dL (3.5-5.2); Alkaline Phosphatase 75 U/L (40-130); Anion Gap 10.4 (5-19); Aspartate Amino Transferase 18 U/L (0-40); Blood Urea Nitrogen 15 mg/dL (8-23); Calcium 9.2 mg/dL (8.5-10.5); Carbon Dioxide 34 mmol/L (22-29); Chloride 99 mmol/L (98-107); Creatine Phosphokinase 37 U/L (39-308); Globulin 2.1 g/dL (1.3-4.6); Glucose 144 mg/dL (65-115); Magnesium 2.3 mg/dL (1.7-2.3); NT Pro B Type Natriuretic Pept 36 pg/mL (0-125); Osmolality Calculated 291 mOsm/kg (285-295); Potassium 4.4 mmol/L (3.5-5.1); Sodium 139 mmol/L (136-145); Total Bilirubin 0.2 mg/dL (0.15-1.2); Total Protein 6.3 g/dL (6.6-8.7)
[2023-04-06 17:18] LABS: Add Urine Microscopic? NO; Charge for UA Resulting for Rev
--- NOTE | 2023-04-06 17:24 | ECG_ITS ---
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 Measurements Intervals [place] Rate: 98 P: 16 FL: 197 QRS: -2 QRSD: 113 T: 30 QT: 329 QTc: 420 Interpretive Statements SINUS RHYTHM INCOMPLETE RIGHT BUNDLE BRANCH BLOCK [90+ ms QRS DURATION, TERMINAL R IN V1/V2, 40+ ms S IN I/aVL/V4/V5/V6] Compared to ECG 04/06/2023 16:10:43 No significant changes Electronically Signed On 04-07-2023 7:19:42 CDT by Isacc Renee M.D. [email or web address]
[2023-04-06 17:37] LABS: Urine Appearance Clear (CLEAR); Urine Color Yellow (Yellow)
[2023-04-06 17:38] LABS: Bilirubin Urine Neg (Negative); Blood Urine Neg (Negative); Glucose Urine UA 4+ (Normal); Ketones Urine Negative (Negative); Leukocyte Esterase Urine Negative (Negative); Nitrate Urine Negative (Negative); Protein Urine Neg (Negative); Specific Gravity, Urine 1.015 (1.005-1.030); Sulfosalicylic Acid Urine Negative (Negative); Urobilinogen Urine Norm (Negative); pH Urine 8 (5-7)
[2023-04-06 17:50] LABS: ABG PH Result 7.32 (7.35-7.45); Alveolar-Arterial Oxygen Gradi 4.3 mmHg (5-10); Arterial Blood Gas Hematocrit 38.2 % (42-52); Blood Gas Allen Test Pos; Blood Gas Operator Identificat WALCI; Blood Gas Sample Site Radial, right; Blood Gas Sample Type Arterial; Carboxyhemoglobin 0.4 %THgb (0.4-20.1); HCO3 ABG 32.9 mmol/L (22-26); HGB O2 Sat 91.5 % (95-100); Ionized Calcium Level - ABG 1.2 mmol/L (1.1-1.4); Methemoglobin 0.8 % (0.4-1.5); Oxygen Device BIPAP; Oxygen Saturation ABG 92.6; PO2 ABG 67.8 mmHg (80.0-100.0); Potassium Level - ABG 5.7 mmol/L (3.5-5.0); Total Hemoglobin 12.5 g/dL (14-18)
[2023-04-06 17:51] LABS: ABG PCO2 63.9 mmHg (35-45)
[2023-04-06 18:29] LABS: Troponin 5 2HR 19.61 ng/L (0-15); Troponin 5 2HR Delta -3.39 ABS# (0-10)
== END 2023-04-06 18:43 | disposition home or self-care (01) ==
PROVIDERS: Family Medicine; Emergency Provider Emergency Medicine; PCP Nurse Practitioner
DX: R06.02 Shortness of breath (principal); R06.89 Other abnormalities of breathing; Z79.85 Long-term (current) use of injectable non-insulin antidiabetic drugs; Z79.02 Long term (current) use of antithrombotics/antiplatelets; Z79.82 Long term (current) use of aspirin; Z87.891 Personal history of nicotine dependence; I10 Essential (primary) hypertension; E11.9 Type 2 diabetes mellitus without complications; Z99.81 Dependence on supplemental oxygen
CPT/HCPCS: 36415; 36600; 71045; 80051; 80053; 81003; 82330; 82550; 82805; 83735; 83880; 84484; 85025; 93005; 94660; 99285

== ENCOUNTER → 2023-04-08 14:54 | Outpatient (BNVA) | payer MEDICARE, MEDICAID, SELFPAY | PROVIDERS: PCP Nurse Practitioner; Referring Provider Nurse Practitioner; Visit Provider Student in an Organized Health Care Education/Training Program | DX: M75.42 Impingement syndrome of left shoulder (principal) | CPT/HCPCS: 20610; 73030; 99204; J3301 ==

== ENCOUNTER → 2023-07-01 16:29 | Outpatient (BNVA) | payer MEDICARE, MEDICAID, SELFPAY | PROVIDERS: PCP Nurse Practitioner; Visit Provider Nurse Practitioner | DX: E11.65 Type 2 diabetes mellitus with hyperglycemia (principal); E55.9 Vitamin D deficiency, unspecified | CPT/HCPCS: 80053; 80061; 81000; 82306; 83036; 83721; 84443; 85025 ==

== ENCOUNTER → 2023-07-15 13:09 | Outpatient (BNVA) | payer MEDICARE, MEDICAID, SELFPAY | PROVIDERS: PCP Nurse Practitioner; Visit Provider Student in an Organized Health Care Education/Training Program | DX: M25.511 Pain in right shoulder; M75.41 Impingement syndrome of right shoulder | CPT/HCPCS: 20610; 73030; 99214; J3301 ==

== ENCOUNTER → 2023-09-23 13:23 | Outpatient (BNVA) | payer MEDICARE, MEDICAID, SELFPAY | PROVIDERS: PCP Nurse Practitioner; Visit Provider Nurse Practitioner | DX: E11.65 Type 2 diabetes mellitus with hyperglycemia (principal); I10 Essential (primary) hypertension; I25.10 Atherosclerotic heart disease of native coronary artery without angina pectoris; M54.32 Sciatica, left side; E78.2 Mixed hyperlipidemia; R12 Heartburn; J30.9 Allergic rhinitis, unspecified; E03.8 Other specified hypothyroidism; R00.0 Tachycardia, unspecified; R39.11 Hesitancy of micturition; G25.81 Restless legs syndrome; R63.2 Polyphagia; Z23 Encounter for immunization | CPT/HCPCS: 80053; 80061; 83036; 83721 ==

== ENCOUNTER 2023-11-06 23:20 | Emergency (ER) | payer MEDICARE, MEDICAID, SELFPAY ==
[2023-11-06 23:30] VITALS: BP 150/82; PULSE 104; RESP 18; TEMP 36.6; O2SAT 98
--- NOTE | 2023-11-06 23:43 | ED.C_ITS ---
Documented by User: LATA Ham 11/07/23 00:48 HPI - Psych 2 General: Chief Complaint: Psychiatric Symptoms Stated Complaint: SI Time Seen by Provider: 11/06/23 23:29 Source: patient and police Mode of arrival: other (police) Limitations: no limitations History of Present Illness: Patient is a nice 73-year-old male who presents to ED today after he was brought in by police with an affidavit for evaluation of suicidal ideations. According to affidavit, police academy instructor responded to a call that the patient was possibly suicidal. He reportedly had made statements that he was going to kill himself and that his gun was sitting next to him. When police academy instructor made contact with the patient, he did confirm that patient had a loaded/chambered firearm next to him and patient did admit to making suicidal statements. According to the patient he and his have been approximately 53 years. is now residing with their youngest son and has made comments that she does not want to be with patient any longer. We did speak to patient's youngest son who states that the father unfortunately has had some issues with dementia. He reportedly recently was very inappropriate with his daughter as well as the which is why son is now keeping them apart. Patient states he feels very lonely without her. MD complaint: suicidal ideation and feels depressed Onset (ago): day(s) Context: significant life stressor Associated psychiatric symptoms: depression and suicidal ideation Associated symptoms: Reports depression and suicidal ideation; Deny auditory hallucinations, visual hallucinations or homicidal ideation Treatments prior to arrival: none and other (affidavit filed by police) If self harm: admits thoughts of self harm and has plan Review of Systems 2 Const: Denies: fever(s) or chills Card: Denies: chest pain, palpitations, lightheadedness or syncope Resp: Denies: dyspnea GI: Denies: abdominal pain, nausea, vomiting or diarrhea Skin/Breast: Denies: rash Neuro: Denies: headache(s) Psych: Reports: depression, hopelessness and suicidal ideation; Denies: anxiety, visual hallucinations, auditory hallucinations or homicidal ideation PFSH ED 2 PFSH: Medical History COVID-19 Enrolled in chronic care management Edema of extremities Hypoxia Mixed anxiety depressive disorder Essential (primary) hypertension Aneurysm of unspecified site Vitamin D insufficiency Cellulitis of left eyelid O2 dependent Platelets decreased Left sciatic nerve pain Type 2 diabetes mellitus with hyperglycemia Atrial tachycardia Shortness of breath Acquired skin tag Acute maxillary sinusitis, unspecified Osteoarthritis of both knees Heartburn Helminthiasis, unspecified ASHD (arteriosclerotic heart disease) Surgical History S/P PTCA (percutaneous transluminal coronary angioplasty) H/O eye surgery Left Family History Sister Cancer Other CAD (coronary artery disease) Diabetes Stroke Social History Smoking and tobacco/nicotine status: former use of tobacco/nicotine Second hand smoke exposure: No Alcohol intake: former Substance/Drug Use: never Adopted: No Caregiver/support person: No Lives independently: Yes Household members: spouse Housing: House Marital status: Current occupational status: retired Do you think of yourself as: Straight/Heterosexual Current gender identity: Male Physical Exam 2 Const: COMMON NORMALS: no acute distress, patient oriented x3, no limitations, alert and well nourished Resp: COMMON NORMALS: normal respiratory effort OTHER: on chronic oxygen Cardio: COMMON NORMALS: regular rate and regular rhythm RATE: regular rate RHYTHM: regular rhythm Neuro: COMMON NORMALS: patient oriented x3 SENSORIUM/ORIENTATION: Yes alert Psych: COMMON NORMALS: mental status grossly normal, Normal thought process present, cooperative, normal affect, speech normal, activity/motor behavior normal, denies hallucinations and denies homicidal ideation APPEARANCE: Yes grossly normal ATTITUDE: Yes calm ACTIVITY/MOTOR BEHAVIOR: Yes appropriate eye contact SPEECH: Yes normal speech MOOD & AFFECT: Yes euthymic mood THOUGHT PROCESS: Normal thought process present THOUGHT CONTENT: Yes Suicidality present ATTENTION/CONCENTRATION: Yes attention grossly intact and Yes concentration grossly intact MEMORY/COGNITION: Yes memory grossly intact and Yes cognition grossly intact INSIGHT: Fair insight present (Psych) J UDGEMENT: Fair judgement present (Psych) Course 2 ED course: Patient will be placed on a 96-hour hold. Plan will be for geriatric psychiatric transfer once he is medically cleared and we find an accepting facility. Vital Signs: Vital signs: Vital Signs Temperature 98.4 F 11/07/23 07:00 Pulse Rate 94 12/10/23 12:55 Respiratory Rate 17 11/07/23 12:55 Blood Pressure 120/76 11/07/23 12:55 Pulse Oximetry 99 11/07/23 12:55 Oxygen Delivery Me thod Nasal Cannula 11/07/23 12:55 Oxygen Flow Rate 4 11/07/23 12:55 MDM - Psych Lab Data 11/07/23 00:43 11/07/23 00:43 Laboratory Results WBC 7.29 10^3/uL (3.29-11.43) 11/07/23 00:43 RBC 4.50 10^6/uL (3.85-5.65) 11/07/23 00:43 Hgb 13.40 g/dL (11.27-16.99) 11/07/23 00:43 Hct 44.0 % (37-53) 11/07/23 00:43 MCV 97.8 fl (82-101) 11/07/23 00:43 MCH 29.8 pg (27-33) 11/07/23 00:43 MCHC 30.5 g/dL (30-55) 11/07/23 00:43 RDW 12.6 % (12.1-15.1) 11/07/23 00:43 Plt Count 150 10^3/cmm (157-399) L 11/07/23 00:43 MPV 10.2 fL (7.4-10.4) 11/07/23 00:43 Neut % (Auto) 63.3 % 11/07/23 00:43 Lymph % (Auto) 26.5 % 11/07/23 00:43 [place] % (Auto) 8.2 % 11/07/23 00:43 Eos % (Auto) 1.4 % 11/07/23 00:43 Baso % (Auto) 0.3 % 11/07/23 00:43 Neut # (Auto) 4.62 10^3/uL (1.8-7.7) 11/07/23 00:43 Lymph # (Auto) 1.9 10^3/uL (0.8-4.8) 11/07/23 00:43 [place] # (Auto) 0.6 10^3/uL (0.2-0.9) 11/07/23 00:43 Eos # (Auto) 0.1 10^3/uL (0.0-0.8) 11/07/23 00:43 Baso # (Auto) 0.0 10^3/uL (0.0-0.1) 11/07/23 00:43 Nucleated RBC % (auto) 0 % 11/07/23 00:43 Nucleated RBCs # 0.0 /100WBC 11/07/23 00:43 Sodium 138 mmol/L (136-145) 11/07/23 00:43 Potassium 4.3 mmol/L (3.5-5.1) 11/07/23 00:43 Chloride 101 mmol/L (98-107) 11/07/23 00:43 Carbon Dioxide 31 mmol/L (22-29) H 11/07/23 00:43 Anion Gap 10.3 (5-19) 11/07/23 00:43 BUN 14 mg/dL (8-23) 11/07/23 00:43 Creatinine 0.6 mg/dL (0.7-1.2) L 11/07/23 00:43 GFR Calculation Not Reportable 11/07/23 00:43 Glucose 207 mg/dL (65-115) H 11/07/23 00:43 Calculated Osmolality 293 mOsm/kg (285-295) 11/07/23 00:43 Calcium 9.8 mg/dL (8.5-10.5) 11/07/23 00:43 Total Bilirubin 0.2 mg/dL (0.15-1.2) 11/07/23 00:43 AST 16 U/L (0-40) 11/07/23 00:43 ALT 16 U/L (0-41) 11/07/23 00:43 Alkaline Phosphatase 63 U/L (40-130) 11/07/23 00:43 Total Protein 6.7 g/dL (6.6-8.7) 11/07/23 00:43 Albumin 4.1 g/dL (3.5-5.2) 11/07/23 00:43 Globulin 2.6 g/dL (1.3-4.6) 11/07/23 00:43 TSH 1.87 uIU/mL (0.27-4.20) 11/07/23 00:43 Urine Color Yellow (Yellow) 11/07/23 01:03 Urine Appearance Hazy (CLEAR) A 11/07/23 01:03 Urine pH 7 (5-7) 11/07/23 01:03 Ur Specific [place] 1.010 (1.005-1.030) 11/07/23 01:03 Urine Protein Neg (Negative) 11/07/23 01:03 Urine Glucose (UA) 4+ (Normal) H 11/07/23 01:03 Urine Ketones Negative (Negative) 11/07/23 01:03 Urine Blood 3+ (Negative) H 11/07/23 01:03 Urine Nitrate Negative (Negative) 11/07/23 01:03 Urine Bilirubin Neg (Negative) 11/07/23 01:03 Urine Urobilinogen Neg mg/dL (Negative) 11/07/23 01:03 Ur Leukocyte Esterase Trace (Negative) H 11/07/23 01:03 Urine RBC 10-15 /hpf (0-2) H 11/07/23 01:03 Urine WBC Rare /hpf (0-5) 11/07/23 01:03 Ur Squamous Epith Cells Rare /hpf (0-5) 11/07/23 01:03 Amorphous Sediment 2+ /hpf 11/07/23 01:03 Urine Bacteria None /hpf (NONE) 11/07/23 01:03 Salicylates < 0.3 mg/dL (3-10) L 11/07/23 00:43 Urine Opiates Screen Negative ng/mL (Negative) 11/07/23 01:03 Acetaminophen < 5.0 ug/mL (10-30) L 11/07/23 00:43 Ur Barbiturates Screen Negative ng/mL (Negative) 11/07/23 01:03 Ur Phencyclidine Scrn Negative ng/mL (Negative) 11/07/23 01:03 Ur Amphetamines Screen Negative ng/mL (Negative) 11/07/23 01:03 U Benzodiazepines Scrn Negative ng/mL (Negative) 11/07/23 01:03 Urine Cocaine Screen Negative ng/mL (Negative) 11/07/23 01:03 U Marijuana (THC) Screen Negative ng/mL (Negative) 11/07/23 01:03 Ethyl Alcohol < 10 mg/dL (0-10) 11/07/23 00:43 Influenza Type A Ag negative (Negative) 11/07/23 01:05 Influenza Type B Ag negative (Negative) 11/07/23 01:05 SARS-CoV-2 Ag (Rapid) negative (Negative) 11/07/23 01:05 Discharge Plan Discharge Patient Disposition: Xfer Psychiatric Hosp Clinical Impression: Suicidal ideation Condition: Stable Referrals: Sade Zhu FNP-C [Primary Care Provider] - Coding Level of Care Code ED Registered Phlebotomist Part Time for Chg Fwd Documented by User: Nabor Copeland DO 11/07/23 07:38 HPI - Psych 2 General: Chief Complaint: Psychiatric Symptoms Stated Complaint: SI Time Seen by Provider: 11/06/23 23:29 PFSH ED 2 PFSH: Medical History COVID-19 Enrolled in chronic care management Edema of extremities Hypoxia Mixed anxiety depressive disorder Essential (primary) hypertension Aneurysm of unspecified site Vitamin D insufficiency Cellulitis of left eyelid O2 dependent Platelets decreased Left sciatic nerve pain Type 2 diabetes mellitus with hyperglycemia Atrial tachycardia Shortness of breath Acquired skin tag Acute maxillary sinusitis, unspecified Osteoarthritis of both knees Heartburn Helminthiasis, unspecified ASHD (arteriosclerotic heart disease) Surgical History S/P PTCA (percutaneous transluminal coronary angioplasty) H/O eye surgery Left Family History Sister Cancer Other CAD (coronary artery disease) Diabetes Stroke Social History Smoking and tobacco/nicotine status: former use of tobacco/nicotine Second hand smoke exposure: No Alcohol intake: former Substance/Drug Use: never Adopted: No Caregiver/support person: No Lives independently: Yes Household members: spouse Housing: House Marital status: Current occupational status: retired Do you think of yourself as: Straight/Heterosexual Current gender identity: Male Course 2 Vital Signs: Vital signs: Vital Signs Temperature 98.4 F 11/07/23 07:00 Pulse Rate 94 11/07/23 12:55 Respiratory Rate 17 11/07/23 12:55 Blood Pressure 120/76 11/07/23 12:55 Pulse Oximetry 99 11/07/23 12:55 Oxygen Delivery Me thod Nasal Cannula 11/07/23 12:55 Oxygen Flow Rate 4 11/07/23 12:55 MDM - Psych Medical Decision Making Care assumed at change of shift patient is a placed on a 96-hour hold for suicidal ideation and threatened to his that shoot himself with a gun. Talked to Dr[facility] Mckinley from [facility] [place], who is accepted the patient on transfer will transfer via [facility] ambulance. Differential Diagnosis Likely suicidal ideation Medical Records I reviewed the patient's medical records. Lab Data I reviewed the patient's lab results. 11/07/23 00:43 11/07/23 00:43 Laboratory Results WBC 7.29 10^3/uL (3.29-11.43) 11/07/23 00:43 RBC 4.50 10^6/uL (3.85-5.65) 11/07/23 00:43 Hgb 13.40 g/dL (11.27-16.99) 11/07/23 00:43 Hct 44.0 % (37-53) 11/07/23 00:43 MCV 97.8 fl (82-101) 11/07/23 00:43 MCH 29.8 pg (27-33) 11/07/23 00:43 MCHC 30.5 g/dL (30-55) 11/07/23 00:43 RDW 12.6 % (12.1-15.1) 11/07/23 00:43 Plt Count 150 10^3/cmm (157-399) L 11/07/23 00:43 MPV 10.2 fL (7.4-10.4) 11/07/23 00:43 Neut % (Auto) 63.3 % 11/07/23 00:43 Lymph % (Auto) 26.5 % 11/07/23 00:43 [place] % (Auto) 8.2 % 11/07/23 00:43 Eos % (Auto) 1.4 % 11/07/23 00:43 Baso % (Auto) 0.3 % 11/07/23 00:43 Neut # (Auto) 4.62 10^3/uL (1.8-7.7) 11/07/23 00:43 Lymph # (Auto) 1.9 10^3/uL (0.8-4.8) 11/07/23 00:43 [place] # (Auto) 0.6 10^3/uL (0.2-0.9) 11/07/23 00:43 Eos # (Auto) 0.1 10^3/uL (0.0-0.8) 11/07/23 00:43 Baso # (Auto) 0.0 10^3/uL (0.0-0.1) 11/07/23 00:43 Nucleated RBC % (auto) 0 % 11/07/23 00:43 Nucleated RBCs # 0.0 /100WBC 11/07/23 00:43 Sodium 138 mmol/L (136-145) 11/07/23 00:43 Potassium 4.3 mmol/L (3.5-5.1) 11/07/23 00:43 Chloride 101 mmol/L (98-107) 11/07/23 00:43 Carbon Dioxide 31 mmol/L (22-29) H 11/07/23 00:43 Anion Gap 10.3 (5-19) 11/07/23 00:43 BUN 14 mg/dL (8-23) 11/07/23 00:43 Creatinine 0.6 mg/dL (0.7-1.2) L 11/07/23 00:43 GFR Calculation Not Reportable 11/07/23 00:43 Glucose 207 mg/dL (65-115) H 11/07/23 00:43 Calculated Osmolality 293 mOsm/kg (285-295) 11/07/23 00:43 Calcium 9.8 mg/dL (8.5-10.5) 11/07/23 00:43 Total Bilirubin 0.2 mg/dL (0.15-1.2) 11/07/23 00:43 AST 16 U/L (0-40) 11/07/23 00:43 ALT 16 U/L (0-41) 11/07/23 00:43 Alkaline Phosphatase 63 U/L (40-130) 11/07/23 00:43 Total Protein 6.7 g/dL (6.6-8.7) 11/07/23 00:43 Albumin 4.1 g/dL (3.5-5.2) 11/07/23 00:43 Globulin 2.6 g/dL (1.3-4.6) 11/07/23 00:43 TSH 1.87 uIU/mL (0.27-4.20) 11/07/23 00:43 Urine Color Yellow (Yellow) 11/07/23 01:03 Urine Appearance Hazy (CLEAR) A 11/07/23 01:03 Urine pH 7 (5-7) 11/07/23 01:03 Ur Specific [place] 1.010 (1.005-1.030) 11/07/23 01:03 Urine Protein Neg (Negative) 11/07/23 01:03 Urine Glucose (UA) 4+ (Normal) H 11/07/23 01:03 Urine Ketones Negative (Negative) 11/07/23 01:03 Urine Blood 3+ (Negative) H 11/07/23 01:03 Urine Nitrate Negative (Negative) 11/07/23 01:03 Urine Bilirubin Neg (Negative) 11/07/23 01:03 Urine Urobilinogen Neg mg/dL (Negative) 11/07/23 01:03 Ur Leukocyte Esterase Trace (Negative) H 11/07/23 01:03 Urine RBC 10-15 /hpf (0-2) H 11/07/23 01:03 Urine WBC Rare /hpf (0-5) 11/07/23 01:03 Ur Squamous Epith Cells Rare /hpf (0-5) 11/07/23 01:03 Amorphous Sediment 2+ /hpf 11/07/23 01:03 Urine Bacteria None /hpf (NONE) 11/07/23 01:03 Salicylates < 0.3 mg/dL (3-10) L 11/07/23 00:43 Urine Opiates Screen Negative ng/mL (Negative) 11/07/23 01:03 Acetaminophen < 5.0 ug/mL (10-30) L 11/07/23 00:43 Ur Barbiturates Screen Negative ng/mL (Negative) 11/07/23 01:03 Ur Phencyclidine Scrn Negative ng/mL (Negative) 11/07/23 01:03 Ur Amphetamines Screen Negative ng/mL (Negative) 11/07/23 01:03 U Benzodiazepines Scrn Negative ng/mL (Negative) 11/07/23 01:03 Urine Cocaine Screen Negative ng/mL (Negative) 11/07/23 01:03 U Marijuana (THC) Screen Negative ng/mL (Negative) 11/07/23 01:03 Ethyl Alcohol < 10 mg/dL (0-10) 11/07/23 00:43 Influenza Type A Ag negative (Negative) 11/07/23 01:05 Influenza Type B Ag negative (Negative) 11/07/23 01:05 SARS-CoV-2 Ag (Rapid) negative (Negative) 11/07/23 01:05 No radiology studies performed this visit Discharge Plan Discharge Patient Disposition: Xfer Psychiatric Hosp Clinical Impression: Suicidal ideation Condition: Stable Referrals: Sade Zhu, CRYOGENICS ENGINEER-C [Primary Care Provider] - Coding Level of Care Code ED Registered Phlebotomist Part Time for Chg Fwd Documented by User: Owen Singh DO 11/07/23 20:42 HPI - Psych 2 General: Chief Complaint: Psychiatric Symptoms Stated Complaint: SI Time Seen by Provider: 11/06/23 23:29 PFSH ED 2 PFSH: Medical History COVID-19 Enrolled in chronic care management Edema of extremities Hypoxia Mixed anxiety depressive disorder Essential (primary) hypertension Aneurysm of unspecified site Vitamin D insufficiency Cellulitis of left eyelid O2 dependent Platelets decreased Left sciatic nerve pain Type 2 diabetes mellitus with hyperglycemia Atrial tachycardia Shortness of breath Acquired skin tag Acute maxillary sinusitis, unspecified Osteoarthritis of both knees Heartburn Helminthiasis, unspecified ASHD (arteriosclerotic heart disease) Surgical History S/P PTCA (percutaneous transluminal coronary angioplasty) H/O eye surgery Left Family History Sister Cancer Other CAD (coronary artery disease) Diabetes Stroke Social History (Reviewed 11/07/23 @ 00:22 by DOMINIQUE Ham Smoking and tobacco/nicotine status: former use of tobacco/nicotine Second hand smoke exposure: No Alcohol intake: former Substance/Drug Use: never Adopted: No Caregiver/support person: No Lives independently: Yes Household members: spouse Housing: House Marital status: Current occupational status: retired Do you think of yourself as: Straight/Heterosexual Current gender identity: Male Course 2 Vital Signs: Vital signs: Vital Signs Temperature 98.4 F 11/07/23 07:00 Pulse Rate 94 11/07/23 12:55 Respiratory Rate 17 11/07/23 12:55 Blood Pressure 120/76 11/07/23 12:55 Pulse Oximetry 99 11/07/23 12:55 Oxygen Delivery Me thod Nasal Cannula 11/07/23 12:55 Oxygen Flow Rate 4 11/07/23 12:55 MDM - Psych Medical Decision Making Care assumed at change of shift patient is a placed on a 96-hour hold for suicidal ideation and threatened to his that shoot himself with a gun. Talked to Dr. Mckinley from [facility] in [place], who is accepted the patient on transfer will transfer via [facility] ambulance. This patient was originally seen by Mrs. Bansal?KAYLEEN Gutierrez? I agree with her history, evaluation, and treatment. Lab Data 11/07/23 00:43 11/07/23 00:43 Laboratory Results WBC 7.29 10^3/uL (3.29-11.43) 11/07/23 00:43 RBC 4.50 10^6/uL (3.85-5.65) 11/07/23 00:43 Hgb 13.40 g/dL (11.27-16.99) 11/07/23 00:43 Hct 44.0 % (37-53) 11/07/23 00:43 MCV 97.8 fl (82-101) 11/07/23 00:43 MCH 29.8 pg (27-33) 11/07/23 00:43 MCHC 30.5 g/dL (30-55) 11/07/23 00:43 RDW 12.6 % (12.1-15.1) 11/07/23 00:43 Plt Count 150 10^3/cmm (157-399) L 11/07/23 00:43 MPV 10.2 fL (7.4-10.4) 11/07/23 00:43 Neut % (Auto) 63.3 % 11/07/23 00:43 Lymph % (Auto) 26.5 % 11/07/23 00:43 [place] % (Auto) 8.2 % 11/07/23 00:43 Eos % (Auto) 1.4 % 11/07/23 00:43 Baso % (Auto) 0.3 % 11/07/23 00:43 Neut # (Auto) 4.62 10^3/uL (1.8-7.7) 11/07/23 00:43 Lymph # (Auto) 1.9 10^3/uL (0.8-4.8) 11/07/23 00:43 [place] # (Auto) 0.6 10^3/uL (0.2-0.9) 11/07/23 00:43 Eos # (Auto) 0.1 10^3/uL (0.0-0.8) 11/07/23 00:43 Baso # (Auto) 0.0 10^3/uL (0.0-0.1) 11/07/23 00:43 Nucleated RBC % (auto) 0 % 11/07/23 00:43 Nucleated RBCs # 0.0 /100WBC 11/07/23 00:43 Sodium 138 mmol/L (136-145) 11/07/23 00:43 Potassium 4.3 mmol/L (3.5-5.1) 11/07/23 00:43 Chloride 101 mmol/L (98-107) 11/07/23 00:43 Carbon Dioxide 31 mmol/L (22-29) H 11/07/23 00:43 Anion Gap 10.3 (5-19) 11/07/23 00:43 BUN 14 mg/dL (8-23) 11/07/23 00:43 Creatinine 0.6 mg/dL (0.7-1.2) L 11/07/23 00:43 GFR Calculation Not Reportable 11/07/23 00:43 Glucose 207 mg/dL (65-115) H 11/07/23 00:43 Calculated Osmolality 293 mOsm/kg (285-295) 11/07/23 00:43 Calcium 9.8 mg/dL (8.5-10.5) 11/07/23 00:43 Total Bilirubin 0.2 mg/dL (0.15-1.2) 11/07/23 00:43 AST 16 U/L (0-40) 11/07/23 00:43 ALT 16 U/L (0-41) 11/07/23 00:43 Alkaline Phosphatase 63 U/L (40-130) 11/07/23 00:43 Total Protein 6.7 g/dL (6.6-8.7) 11/07/23 00:43 Albumin 4.1 g/dL (3.5-5.2) 11/07/23 00:43 Globulin 2.6 g/dL (1.3-4.6) 11/07/23 00:43 TSH 1.87 uIU/mL (0.27-4.20) 11/07/23 00:43 Urine Color Yellow (Yellow) 11/07/23 01:03 Urine Appearance Hazy (CLEAR) A 11/07/23 01:03 Urine pH 7 (5-7) 11/07/23 01:03 Ur Specific [place] 1.010 (1.005-1.030) 11/07/23 01:03 Urine Protein Neg (Negative) 11/07/23 01:03 Urine Glucose (UA) 4+ (Normal) H 11/07/23 01:03 Urine Ketones Negative (Negative) 11/07/23 01:03 Urine Blood 3+ (Negative) H 11/07/23 01:03 Urine Nitrate Negative (Negative) 11/07/23 01:03 Urine Bilirubin Neg (Negative) 11/07/23 01:03 Urine Urobilinogen Neg mg/dL (Negative) 11/07/23 01:03 Ur Leukocyte Esterase Trace (Negative) H 11/07/23 01:03 Urine RBC 10-15 /hpf (0-2) H 11/07/23 01:03 Urine WBC Rare /hpf (0-5) 11/07/23 01:03 Ur Squamous Epith Cells Rare /hpf (0-5) 11/07/23 01:03 Amorphous Sediment 2+ /hpf 11/07/23 01:03 Urine Bacteria None /hpf (NONE) 11/07/23 01:03 Salicylates < 0.3 mg/dL (3-10) L 11/07/23 00:43 Urine Opiates Screen Negative ng/mL (Negative) 11/07/23 01:03 Acetaminophen < 5.0 ug/mL (10-30) L 11/07/23 00:43 Ur Barbiturates Screen Negative ng/mL (Negative) 11/07/23 01:03 Ur Phencyclidine Scrn Negative ng/mL (Negative) 11/07/23 01:03 Ur Amphetamines Screen Negative ng/mL (Negative) 11/07/23 01:03 U Benzodiazepines Scrn Negative ng/mL (Negative) 11/07/23 01:03 Urine Cocaine Screen Negative ng/mL (Negative) 11/07/23 01:03 U Marijuana (THC) Screen Negative ng/mL (Negative) 11/07/23 01:03 Ethyl Alcohol < 10 mg/dL (0-10) 11/07/23 00:43 Influenza Type A Ag negative (Negative) 11/07/23 01:05 Influenza Type B Ag negative (Negative) 11/07/23 01:05 SARS-CoV-2 Ag (Rapid) negative (Negative) 11/07/23 01:05 Discharge Plan Discharge Patient Disposition: Xfer Psychiatric Hosp Clinical Impression: Suicidal ideation Condition: Stable Referrals: Sade Zhu, CRYOGENICS ENGINEER-C [Primary Care Provider] - Coding Level of Care Code ED Registered Phlebotomist Part Time for Jonathan Peña
--- NOTE | 2023-11-06 23:52 | ECG_ITS ---
[facility] Test Date: 2023-11-06 Pat Name: Sathish Caballero Department: Room: Gender: Male Diagram Clerk: : 1950 Requested By: Rosalba Bansal Order Number: [id number] Kike MD: Wayne Morales M.D. Measurements Intervals [place] Rate: 79 P: 24 UT: 182 QRS: -36 QRSD: 109 T: 33 QT: 315 QTc: 362 Interpretive Statements SINUS RHYTHM WITH MARKED SINUS ARRHYTHMIA LEFT AXIS DEVIATION [QRS AXIS < -30] INCOMPLETE RIGHT BUNDLE BRANCH BLOCK [90+ ms QRS DURATION, TERMINAL R IN V1/V2, 40+ ms S IN I/aVL/V4/V5/V6] Compared to ECG 04/06/2023 18:07:42 Left-axis deviation now present Electronically Signed On 11-07-2023 8:40:52 [employer]LL[employer] PERSON by Wayne Morales M.D. [id number]
[2023-11-07 00:58] LABS: Basophils % 0.3 %; Eosinophils # 0.1 10^3/uL (0.0-0.8); Eosinophils % 1.4 %; Lymphocytes # 1.9 10^3/uL (0.8-4.8); Lymphocytes % 26.5 %; Mean Corpuscular HGB Conc 30.5 g/dL (30-55); Mean Corpuscular Hemoglobin 29.8 pg (27-33); Mean Corpuscular Volume 97.8 fl (82-101); Mean Platelet Volume 10.2 fL (7.4-10.4); Monocytes # 0.6 10^3/uL (0.2-0.9); Monocytes % 8.2 %; Neutrophils # 4.62 10^3/uL (1.8-7.7); Neutrophils % 63.3 %; Nucleated Red Blood Cells % 0 %; Platelet Count 150 10^3/cmm (157-399); Red Cell Distribution Width 12.6 % (12.1-15.1); White Blood Count 7.29 10^3/uL (3.29-11.43)
[2023-11-07 01:20] LABS: Add Urine Culture? No; Add Urine Microscopic? YES; Amorphous Sediment Urine 2+ /hpf; Bilirubin Urine Neg (Negative); Blood Urine 3+ (Negative); Glucose Urine UA 4+ (Normal); Ketones Urine Negative (Negative); Leukocyte Esterase Urine Trace (Negative); Nitrate Urine Negative (Negative); Protein Urine Neg (Negative); Squamous Epithelial Cell Urine RARE /hpf (0-5); Urine Appearance Hazy (CLEAR); Urine Color Yellow (Yellow); Urobilinogen Urine Neg (Negative); WBC Urine RARE /hpf (0-5); pH Urine 7 (5-7)
[2023-11-07 01:22] LABS: Alanine Aminotransferase 16 U/L (0-41); Albumin Level 4.1 g/dL (3.5-5.2); Alkaline Phosphatase 63 U/L (40-130); Anion Gap 10.3 (5-19); Aspartate Amino Transferase 16 U/L (0-40); Blood Urea Nitrogen 14 mg/dL (8-23); Calcium 9.8 mg/dL (8.5-10.5); Carbon Dioxide 31 mmol/L (22-29); Chloride 101 mmol/L (98-107); Globulin 2.6 g/dL (1.3-4.6); Glucose 207 mg/dL (65-115); Osmolality Calculated 293 mOsm/kg (285-295); Potassium 4.3 mmol/L (3.5-5.1); Sodium 138 mmol/L (136-145); Thyroid Stimulating Hormone 1.87 uIU/mL (0.27-4.20); Total Bilirubin 0.2 mg/dL (0.15-1.2); Total Protein 6.7 g/dL (6.6-8.7)
[2023-11-07 01:23] LABS: Amphetamines Screen Urine Negative (Negative); Barbiturates Screen Urine Negative (Negative); Benzodiazepines Screen Urine Negative (Negative); Cocaine Screen Urine Negative (Negative); Opiate Screen Urine Negative (Negative); PCP Screen Urine Negative (Negative); THC Screen Urine Negative (Negative)
[2023-11-07 01:24] LABS: Acetaminophen < 5.0 ug/mL (10-30); Alcohol Level < 10 mg/dL (0-10); Salicylate < 0.3 mg/dL (3-10)
[2023-11-07 01:35] LABS: Influenza A by IFA negative (Negative); Influenza B by IFA negative (Negative)
[2023-11-07 01:36] LABS: SARS Covid-2 Antigen negative (Negative)
--- NOTE | 2023-11-07 01:48 | PC.NURSE ---
96 hour hold rights served to patient at 0140 by this nurse with security at bedside. All questions answered and copy of 96 hour hold rights left with patient.
[2023-11-07 04:28] VITALS: RESP 16; O2SAT 97
[2023-11-07 07:00] VITALS: BP 133/84; PULSE 93; TEMP 36.9; O2SAT 99
[2023-11-07 12:55] VITALS: BP 120/76; PULSE 94; RESP 17; O2SAT 99
== END 2023-11-07 13:54 ==
PROVIDERS: Physician Assistant; Emergency Provider Family Medicine; PCP Nurse Practitioner
DX: R45.851 Suicidal ideations (principal); I10 Essential (primary) hypertension; E11.9 Type 2 diabetes mellitus without complications; Z87.891 Personal history of nicotine dependence; Z11.52 Encounter for screening for COVID-19; F03.90 Unspecified dementia, unspecified severity, without behavioral disturbance, psychotic disturbance, mood disturbance, and anxiety
CPT/HCPCS: 36415; 80053; 80306; 80307; 81001; 84443; 85025; 87426; 87804; 93005; 99284

== ENCOUNTER 2024-09-16 09:10 | Emergency (ER) | payer MEDICARE, SELFPAY ==
--- NOTE | 2024-09-16 09:11 | XRR_ITS ---
PROCEDURE INFORMATION: Exam: XR Chest Exam date and time: 09/16/2024 9:16 AM Age: 74 years old Clinical indication: Dyspnea; Additional info: AMS TECHNIQUE: Imaging protocol: Radiologic exam of the chest. Views: 1 view. COMPARISON: CR XR chest 1V portable [id number] 04/06/2023 3:54 PM FINDINGS: Lungs: There is left basilar consolidation consistent with lower lobe pneumonia. Pleural spaces: Small left pleural effusion. No pneumothorax. Heart/Mediastinum: Unremarkable. No cardiomegaly. Bones/joints: Unremarkable. XR/XR chest 1V portable [id number] IMPRESSION: Left basilar opacity consistent with lower lobe pneumonia and small pleural effusion.
--- NOTE | 2024-09-16 09:11 | CTR_ITS ---
PROCEDURE INFORMATION: Exam: CT Head Without Contrast Exam date and time: 09/16/2024 9:11 AM Age: 74 years old Clinical indication: Stroke-like symptoms; Altered mental status/memory loss; Additional info: AMS TECHNIQUE: Imaging protocol: Computed tomography of the head without contrast. Radiation optimization: All CT scans at this facility use at least one of these dose optimization techniques: automated exposure control; mA and/or kV adjustment per patient size (includes targeted exams where dose is matched to clinical indication); or iterative reconstruction. Other technique: STROKE PROTOCOL was implemented. COMPARISON: MR head orbits wo con [id number] 03/31/2023 2:11 PM RADIATION DOSE METRICS: Total DLP (mGy-cm): 1092.56 FINDINGS: Brain: No intracranial hemorrhage, edema or other acute abnormality is seen in the brain. 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 There is generalized chronic atrophy with chronic white matter ischemic changes. No mass effect or midline shift. Cerebral ventricles: No ventriculomegaly. Paranasal sinuses: Visualized sinuses are unremarkable. No fluid levels. Mastoid air cells: Visualized mastoid air cells are well aerated. Bones: Unremarkable. No acute fracture. Soft tissues: Unremarkable. CT/CT head wo con* [id number] IMPRESSION: No acute intracranial abnormality. ASSESSMENT: ASPECTS ([place] Stroke Program Early CT Score) is 10.
--- NOTE | 2024-09-16 09:25 | ECG_ITS ---
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1950 Requested By: Agapito Caballero Order Number: [id number] Reading MD: HARJINDER HAYES Measurements Intervals [place] Rate: 85 P: 34 SD: 174 QRS: -23 QRSD: 109 T: 33 QT: 345 QTc: 412 Interpretive Statements SINUS RHYTHM WITH OCCASIONAL SUPRAVENTRICULAR PREMATURE COMPLEXES BORDERLINE LEFT AXIS DEVIATION [QRS AXIS < -20] NONSPECIFIC ST ELEVATION [0.05+ mV ST ELEVATION] Compared to ECG 11/06/2023 23:52:24 ST (T wave) deviation now present Sinus arrhythmia no longer present Incomplete right bundle-branch block no longer present Electronically Signed On 09-16-2024 18:08:19 CDT by HARJINDER HAYES [email or web address]
[2024-09-16 09:26] VITALS: BP 122/58; PULSE 82; RESP 16; TEMP 36.7; O2SAT 96
[2024-09-16 09:27] LABS: Basophils % 0.3 %; Eosinophils # 0.1 10^3/uL (0.0-0.8); Eosinophils % 1.3 %; Lymphocytes # 1.4 10^3/uL (0.8-4.8); Lymphocytes % 18.9 %; Mean Corpuscular HGB Conc 28.2 g/dL (30-55); Mean Corpuscular Hemoglobin 29.4 pg (27-33); Mean Corpuscular Volume 104.2 fl (82-101); Mean Platelet Volume 10.4 fL (7.4-10.4); Monocytes # 0.5 10^3/uL (0.2-0.9); Monocytes % 6.8 %; Neutrophils # 5.53 10^3/uL (1.8-7.7); Neutrophils % 72.4 %; Nucleated Red Blood Cells % 0 %; Platelet Count 155 10^3/cmm (157-399); Red Blood Count 4.32 10^6/uL (3.85-5.65); Red Cell Distribution Width 13.1 % (12.1-15.1); White Blood Count 7.63 10^3/uL (3.29-11.43)
[2024-09-16 09:38] LABS: INR 1.02 (0.8-1.2)
--- NOTE | 2024-09-16 09:39 | W.ED.DIZZY ---
HPI - Dizziness General: Chief Complaint: Dizziness Stated Complaint: AMS Time Seen by Provider: 09/16/24 09:11 Source: EMS Mode of arrival: EMS Limitations: altered mental status History of Present Illness: HPI Narrative: 74-year-old male that is here from long-term per long-term he is been having increased confusion times last 3 days. Patient here is able to tell me his name but does not know that he is in a long-term does not know the year. Per long-term staff he is typically ANO x 4. He is also had some hypoxia 75% here on room air. Patient denies any headache. Related Data Home Medications Medication Instructions Recorded Confirmed aspirin 325 mg tablet 325 mg PO DAILY 12/01/19 11/07/23 calcium carbonate (Calcium 600) 600 mg PO DAILY 12/01/19 11/07/23 lancets 33 gauge (OneTouch Delica #100 ea 12/01/19 11/07/23 Lancets) [id number] 200 mcg-lycop 1 tab PO DAILY 12/01/19 11/07/23 175 mcg-lutei 250 mcg-herb 178 tablet (Oliver Multivitamin For Men) diclofenac sodium 1 % topical gel 4 g topical TID PRN Pain 11/07/23 11/07/23 Previous Rx's Medication Instructions Recorded lancets 30 gauge (Ultra Fine #100 ea 07/31/20 Lancets) blood sugar diagnostic #50 ea 04/28/22 oxygen concentrator w/ portable #1 ea 02/16/23 Hospital Bed #1 ea 02/18/23 clopidogrel 75 mg tablet 75 mg PO DAILY #30 tabs 09/23/23 diltiazem HCl 30 mg tablet 30 mg PO BID #60 tabs 09/23/23 (Cardizem) dulaglutide 1.5 mg/0.5 mL 1.5 mg (0.5 mL) SUBCUT Q7D #2 mL 09/23/23 subcutaneous pen injector (Trulicity) duloxetine 60 mg capsule,delayed 60 mg PO BID #60 caps 09/23/23 release empagliflozin 25 mg tablet 25 mg PO QAM #30 tabs 09/23/23 (Jardiance) evolocumab 140 mg/mL subcutaneous 140 mg SUBCUT Q14D #2 mL 09/23/23 pen injector (Repatha SureMedick) famotidine 40 mg tablet (Pepcid) 40 mg PO DAILY #30 tabs 09/23/23 fenofibrate nanocrystallized 145 145 mg PO DAILY #30 tabs 09/23/23 mg tablet (Tricor) fluticasone propionate 50 1 spray intranasal Q12H Nasal 09/23/23 mcg/actuation nasal Congestion #15.8 mL spray,suspension (Flonase Allergy Relief) furosemide 40 mg tablet (Lasix) 40 mg PO QAM #30 tabs 09/23/23 levothyroxine 100 mcg tablet 100 mcg PO DAILY #30 tabs 09/23/23 losartan 50 mg tablet 50 mg PO DAILY #30 tabs 09/23/23 metoprolol succinate 25 mg 25 mg PO DAILY #30 tabs 09/23/23 tablet,extended release 24 hr (Toprol XL) potassium chloride 10 mEq 10 meq PO DAILY #30 caps 09/23/23 capsule,extended release tamsulosin 0.4 mg capsule (Flomax) 0.4 mg PO DAILY #30 caps 09/23/23 tizanidine 2 mg tablet 2 mg PO BEDTIME Muscle Spasm #30 09/23/23 tabs topiramate 50 mg tablet (Topamax) 50 mg PO BID #60 tabs 09/23/23 doxycycline hyclate 100 mg tablet 100 mg PO BID 7 days #14 tabs 09/16/24 Allergies Allergy/AdvReac Type Severity Reaction Status Date / Time No Known Allergies Allergy Verified 09/23/23 13:00 Review of Systems General: Reports: ROS unobtainable due to mental status PFSH ED PFSH: Medical History COVID-19 Enrolled in chronic care management Edema of extremities Hypoxia Mixed anxiety depressive disorder Essential (primary) hypertension Aneurysm of unspecified site Vitamin D insufficiency Cellulitis of left eyelid O2 dependent Platelets decreased Left sciatic nerve pain Type 2 diabetes mellitus with hyperglycemia Atrial tachycardia Shortness of breath Acquired skin tag Acute maxillary sinusitis, unspecified Osteoarthritis of both knees Heartburn Helminthiasis, unspecified ASHD (arteriosclerotic heart disease) Surgical History S/P PTCA (percutaneous transluminal coronary angioplasty) H/O eye surgery Left Family History Sister Cancer Other CAD (coronary artery disease) Diabetes Stroke Social History Smoking and tobacco/nicotine status: former use of tobacco/nicotine Second hand smoke exposure: No Alcohol intake: former Substance/Drug Use: never Adopted: No Caregiver/support person: No Lives independently: Yes Household members: spouse Housing: House Marital status: Current occupational status: retired Do you think of yourself as: Straight/Heterosexual Current gender identity: Male Course Vital Signs: Vital signs: Vital Signs Temperature 98.1 F 09/16/24 09:26 Pulse Rate 90 09/16/24 10:18 Respiratory Rate 16 09/16/24 09:26 Blood Pressure 137/65 09/16/24 10:18 Pulse Oximetry 97 09/16/24 10:18 Oxygen Delivery Me thod Nasal Cannula 09/16/24 10:18 Oxygen Flow Rate 3 09/16/24 10:18 MDM - Dizziness Medical Decision Making Patient is here with altered mental status I did talk to patient's son this is actually his baseline he has dementia he has no signs of stroke. Head CT is normal does have a slight pneumonia he is got no white count no hypoxia will treat with doxycycline at long-term he stable for discharge back to long-term and is return if worsening Medical Records I reviewed the patient's medical records. Lab Data I reviewed the patient's lab results. 09/16/24 09:16 09/16/24 09:16 Radiology Impressions Chest X-Ray 09/16/24 09:11 IMPRESSION: Left basilar opacity consistent with lower lobe pneumonia and small pleural effusion. Head CT 09/16/24 09:11 IMPRESSION: No acute intracranial abnormality. ASSESSMENT: ASPECTS ([place] Stroke Program Early CT Score) is 10. Laboratory Results WBC 7.63 10^3/uL (3.29-11.43) 09/16/24 09:16 RBC 4.32 10^6/uL (3.85-5.65) 09/16/24 09:16 Hgb 12.70 g/dL (11.27-16.99) 09/16/24 09:16 Hct 45.0 % (37-53) 09/16/24 09:16 MCV 104.2 fl (82-101) H 09/16/24 09:16 MCH 29.4 pg (27-33) 09/16/24 09:16 MCHC 28.2 g/dL (30-55) L 09/16/24 09:16 RDW 13.1 % (12.1-15.1) 09/16/24 09:16 Plt Count 155 10^3/cmm (157-399) L 09/16/24 09:16 MPV 10.4 fL (7.4-10.4) 09/16/24 09:16 Neut % (Auto) 72.4 % 09/16/24 09:16 Lymph % (Auto) 18.9 % 09/16/24 09:16 [place] % (Auto) 6.8 % 09/16/24 09:16 Eos % (Auto) 1.3 % 09/16/24 09:16 Baso % (Auto) 0.3 % 09/16/24 09:16 Neut # (Auto) 5.53 10^3/uL (1.8-7.7) 09/16/24 09:16 Lymph # (Auto) 1.4 10^3/uL (0.8-4.8) 09/16/24 09:16 [place] # (Auto) 0.5 10^3/uL (0.2-0.9) 09/16/24 09:16 Eos # (Auto) 0.1 10^3/uL (0.0-0.8) 09/16/24 09:16 Baso # (Auto) 0.0 10^3/uL (0.0-0.1) 09/16/24 09:16 Nucleated RBC % (auto) 0 % 09/16/24 09:16 Nucleated RBCs # 0.0 /100WBC 09/16/24 09:16 PT 13.80 SECONDS (12.1-14.9) 09/16/24 09:16 INR 1.02 (0.8-1.2) 09/16/24 09:16 Sodium 141 mmol/L (136-145) 09/16/24 09:16 Potassium 4.2 mmol/L (3.5-5.1) 09/16/24 09:16 Chloride 97 mmol/L (98-107) L 09/16/24 09:16 Carbon Dioxide 39 mmol/L (22-29) H 09/16/24 09:16 Anion Gap 9.2 (5-19) 09/16/24 09:16 BUN 16 mg/dL (8-23) 09/16/24 09:16 Creatinine 0.7 mg/dL (0.7-1.2) 09/16/24 09:16 GFR Calculation Not Reportable 09/16/24 09:16 Glucose 221 mg/dL (65-115) H 09/16/24 09:16 Calculated Osmolality 300 mOsm/kg (285-295) H 09/16/24 09:16 Calcium 8.8 mg/dL (8.5-10.5) 09/16/24 09:16 Total Bilirubin 0.3 mg/dL (0.15-1.2) 09/16/24 09:16 AST 12 U/L (0-40) 09/16/24 09:16 ALT 13 U/L (0-41) 09/16/24 09:16 Alkaline Phosphatase 43 U/L (40-130) 09/16/24 09:16 Total Protein 6.9 g/dL (6.6-8.7) 09/16/24 09:16 Albumin 4.0 g/dL (3.5-5.2) 09/16/24 09:16 Globulin 2.9 g/dL (1.3-4.6) 09/16/24 09:16 TSH 1.16 uIU/mL (0.27-4.20) 09/16/24 09:16 Urine Color Yellow (Yellow) 09/16/24 09:41 Urine Appearance Clear (CLEAR) 09/16/24 09:41 Urine pH 7.5 (5-7) 09/16/24 09:41 Ur Specific [place] 1.026 (1.005-1.030) 09/16/24 09:41 Urine Protein Negative (Negative) 09/16/24 09:41 Urine Glucose (UA) 3+ (Normal) H 09/16/24 09:41 Urine Ketones Negative (Negative) 09/16/24 09:41 Urine Blood Negative (Negative) 09/16/24 09:41 Urine Nitrate Negative (Negative) 09/16/24 09:41 Urine Bilirubin Negative (Negative) 09/16/24 09:41 Urine Urobilinogen 0.2 mg/dL (Negative) 09/16/24 09:41 Ur Leukocyte Esterase Negative (Negative) 09/16/24 09:41 Urine RBC 0-2 /hpf (0-2) 09/16/24 09:41 Urine WBC 0-5 /hpf (0-5) 09/16/24 09:41 Ur Squamous Epith Cells 0-5 /hpf (0-5) 09/16/24 09:41 Amorphous Sediment Not Reportable 09/16/24 09:41 Urine Bacteria None seen /hpf (NONE) 09/16/24 09:41 Hyaline Casts 0-4 /lpf H 09/16/24 09:41 All radiology interpretation(s) finalized by discharge EKG Data EKG 1: I personally reviewed and interpreted this EKG as follows: EKG interpretation date: 09/16/24 EKG interpretation time: 09:25 Interpretation: nsr hr [address] elevation qrs 109 qtc 387 Discharge Plan Discharge Patient Disposition: Home Clinical Impression: Pneumonia Condition: Stable Prescriptions: New doxycycline hyclate 100 mg tablet 100 mg PO BID 7 Days Qty: 14 0RF No Action aspirin 325 mg tablet 325 mg PO DAILY calcium carbonate [Calcium 600] 600 mg calcium (1,500 mg) tablet 600 mg PO DAILY Oliver Multivitamin For Men 200-175-250 mcg tablet 1 tab PO DAILY (DME) lancets [OneTouch Delica Lancets] 33 gauge misc See Rx Instructions .ROUTE .MEDSUPPLY Qty: 100 Rx Instructions: As directed Trulicity 1.5 mg/0.5 mL pen injector 1.5 mg SUBCUT Q7D Qty: 2 2RF Rx Instructions: On Sundays Cardizem 30 mg tablet 30 mg PO BID Qty: 60 2RF clopidogrel 75 mg tablet 75 mg PO DAILY Qty: 30 2RF duloxetine 60 mg capsule,delayed release(DR/EC) 60 mg PO BID Qty: 60 2RF Jardiance 25 mg tablet 25 mg PO QAM Qty: 30 2RF Repatha SureClick 140 mg/mL pen injector 140 mg SUBCUT Q14D Qty: 2 2RF famotidine [Pepcid] 40 mg tablet 40 mg PO DAILY Qty: 30 2RF fenofibrate nanocrystallized [Tricor] 145 mg tablet 145 mg PO DAILY Qty: 30 2RF Flonase Allergy Relief 50 mcg/actuation spray,suspension 1 spray INTRANASAL Q12H Qty: 15.8 2RF Rx Instructions: administer into each nostril Lasix 40 mg tablet 40 mg PO QAM Qty: 30 2RF levothyroxine 100 mcg tablet 100 mcg PO DAILY Qty: 30 2RF losartan 50 mg tablet 50 mg PO DAILY Qty: 30 2RF metoprolol succinate [Toprol XL] 25 mg tablet extended release 24 hr 25 mg PO DAILY Qty: 30 2RF potassium chloride 10 mEq capsule, extended release 10 meq PO DAILY Qty: 30 2RF tamsulosin [Flomax] 0.4 mg capsule 0.4 mg PO DAILY Qty: 30 2RF tizanidine 2 mg tablet 2 mg PO BEDTIME Qty: 30 2RF topiramate [Topamax] 50 mg tablet 50 mg PO BID Qty: 60 2RF (DME) Hospital Bed See Rx Instructions .Route .MEDSUPPLY Qty: 1 0RF Rx Instructions: As directed (DME) lancets [Ultra Fine Lancets] 30 gauge misc See Rx Instructions .ROUTE .MEDSUPPLY Qty: 100 0RF Rx Instructions: As directed (DME) OneTouch Ultra Blue Test Strip Strip See Rx Instructions .ROUTE .MEDSUPPLY Qty: 50 5RF Rx Instructions: 1 daily (DME) oxygen concentrator w/ portable See Rx Instructions .Route .MEDSUPPLY Qty: 1 0RF Rx Instructions: As directed oxygen concentrator w/portable home fill @4 liters n/c 99 months Voltaren 1 % Gel 4 g TOPICAL TID PRN (Reason: Pain) Rx Instructions: apply to single knee, ankle, foot; for foot includes sole/toes/top of foot Discharge Orders: Discharge ED (Routine); Ordered 09/16/24 Ordered By: Agapito Caballero Referrals: Sade Zhu, INTERNATIONAL TRADE MANAGER-C [Primary Care Provider] - 4-7 days Discharge Diet: Advance as tolerated Discharge Activity: Resume usual activity Patient Instructions: Pneumonia (ED) Coding Level of Care Code ED Lumber Salvager for Jonathan Peña
[2024-09-16 09:47] LABS: Bilirubin Urine Negative (Negative); Blood Urine Negative (Negative); Glucose Urine UA 3+ (Normal); Ketones Urine Negative (Negative); Leukocyte Esterase Urine Negative (Negative); Nitrate Urine Negative (Negative); Protein Urine Negative (Negative); Specific Gravity, Urine 1.026 (1.005-1.030); Urine Appearance Clear (CLEAR); Urine Color Yellow (Yellow); Urobilinogen Urine 0.2 mg/dL (Negative); pH Urine 7.5 (5-7)
[2024-09-16 09:52] LABS: Add Urine Microscopic? YES; Bacteria Urine None Seen /hpf; Hyaline Casts Urine 0-4 /lpf; RBC Urine 0-2 /hpf (0-2); Squamous Epithelial Cell Urine 0-5 /hpf (0-5); WBC Urine 0-5 /hpf (0-5)
[2024-09-16 09:52] LABS: Alanine Aminotransferase 13 U/L (0-41); Alkaline Phosphatase 43 U/L (40-130); Anion Gap 9.2 (5-19); Aspartate Amino Transferase 12 U/L (0-40); Blood Urea Nitrogen 16 mg/dL (8-23); Calcium 8.8 mg/dL (8.5-10.5); Carbon Dioxide 39 mmol/L (22-29); Chloride 97 mmol/L (98-107); Globulin 2.9 g/dL (1.3-4.6); Glucose 221 mg/dL (65-115); Osmolality Calculated 300 mOsm/kg (285-295); Potassium 4.2 mmol/L (3.5-5.1); Sodium 141 mmol/L (136-145); Thyroid Stimulating Hormone 1.16 uIU/mL (0.27-4.20); Total Bilirubin 0.3 mg/dL (0.15-1.2); Total Protein 6.9 g/dL (6.6-8.7)
[2024-09-16] MEDS: cefTRIAXone 1,000 mg SDV 1000 MG IVP (10:14)
[2024-09-16] MEDS: azithromycin 500 MG in sodium chloride 0.9% 250 ML 250 MG IV (10:14)
[2024-09-16 10:18] VITALS: BP 137/65; PULSE 90; O2SAT 97
[2024-09-16 12:04] VITALS: BP 137/65; PULSE 80; O2SAT 96
[2024-09-16 12:55] VITALS: BP 131/70; PULSE 82; O2SAT 96
== END 2024-09-16 12:58 | disposition home or self-care (01) ==
PROVIDERS: Emergency Provider Emergency Medicine; PCP Nurse Practitioner
DX: J18.9 Pneumonia, unspecified organism (principal); Z79.02 Long term (current) use of antithrombotics/antiplatelets; Z79.82 Long term (current) use of aspirin; Z79.85 Long-term (current) use of injectable non-insulin antidiabetic drugs; Z87.891 Personal history of nicotine dependence; I10 Essential (primary) hypertension; Z99.81 Dependence on supplemental oxygen; E11.9 Type 2 diabetes mellitus without complications
CPT/HCPCS: 70450; 71045; 80053; 81001; 84443; 85025; 85610; 87040; 93005; 96374; 96375; 99285; J0456; J0696; J7050

== ENCOUNTER 2024-09-18 12:02 | Inpatient (IN) | payer MEDICARE, SELFPAY ==
[2024-09-18] VITALS (50 sets, daily range): BP systolic 97–134; BP diastolic 57–77; PULSE 73–96; RESP 12–26; TEMP 36.4–37.1; O2SAT 91–98
--- NOTE | 2024-09-18 12:04 | ECG_ITS ---
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1950 Requested By: Agapito Caballero Order Number: [id number] Reading MD: HARJINDER HAYES Measurements Intervals [place] Rate: 76 P: 41 NM: 182 QRS: -58 QRSD: 114 T: 34 QT: 353 QTc: 397 Interpretive Statements SINUS RHYTHM WITH SINUS ARRHYTHMIA LEFT AXIS DEVIATION [QRS AXIS < -30] MODERATE INTRAVENTRICULAR CONDUCTION DELAY [110+ ms QRS DURATION] NONSPECIFIC ST ELEVATION [0.05+ mV ST ELEVATION] Compared to ECG 09/16/2024 09:25:18 Intraventricular conduction delay now present ST (T wave) deviation still present Electronically Signed On 09-19-2024 21:00:49 CDT by HARJINDER HAYES [email or web address]
--- NOTE | 2024-09-18 12:08 | XR_ITS ---
WS: [id number] Exam: XR chest 1V portable [id number] Date/Time of Exam: 09/18/2024 12:18 PM Reason For Exam: sob Comparison 09/07/1924. Again noted is consolidating infiltrate in the LEFT lower lobe with atelectasis and LEFT basal pleura l effusion. The heart appears to be enlarged with increased pulmonary vascularity. Some degree of sup erimposed CHF could have this appearance. No pneumothorax. The mediastinum and bony thorax are unrema rkable. XR/XR chest 1V portable [id number] IMPRESSION: 1. Consolidating infiltrate in the LEFT lower lobe with atelectasis and LEFT ba jameel pleural effusion. Very little change. 2. Cardiac enlargement with increased pulmonary vascularity. Some degree of sup erimposed CHF could have this appearance.
--- NOTE | 2024-09-18 12:23 | PC.PHAR ---
patient is from [facility]
--- NOTE | 2024-09-18 12:34 | W.ED.WEAKNES ---
HPI - Weakness General: Chief complaint: Weakness Stated complaint: SOB Time Seen by Provider: 09/18/24 12:03 Source: patient and EMS Mode of arrival: EMS Limitations: altered mental status History of Present Illness: 74-year-old male with a history of dementia patient seen here 2 days ago was diagnosed with pneumonia has been on doxycycline per senior living patient had increasing cough and increasing shortness of breath he is typically on 2 to 3 L oxygen they have had to increase him to 5 L. Patient has dementia history is difficult to get from him due to the dementia Review of Systems General: Reports: ROS unobtainable due to mental status PFS ED PFSH: Medical History COVID-19 Enrolled in chronic care management Edema of extremities Hypoxia Mixed anxiety depressive disorder Essential (primary) hypertension Aneurysm of unspecified site Vitamin D insufficiency Cellulitis of left eyelid O2 dependent Platelets decreased Left sciatic nerve pain Type 2 diabetes mellitus with hyperglycemia Atrial tachycardia Shortness of breath Acquired skin tag Acute maxillary sinusitis, unspecified Osteoarthritis of both knees Heartburn Helminthiasis, unspecified ASHD (arteriosclerotic heart disease) Surgical History S/P PTCA (percutaneous transluminal coronary angioplasty) H/O eye surgery Left Family History Sister Cancer Other CAD (coronary artery disease) Diabetes Stroke Social History Smoking and tobacco/nicotine status: former use of tobacco/nicotine Second hand smoke exposure: No Alcohol intake: former Substance/Drug Use: never Adopted: No Caregiver/support person: No Lives independently: Yes Household members: spouse Housing: House Marital status: Current occupational status: retired Do you think of yourself as: Straight/Heterosexual Current gender identity: Male Physical Exam Const: COMMON NORMALS: negative for patient oriented x3 HENMT: COMMON NORMALS: normocephalic and atraumatic HEAD & SCALP: normocephalic and atraumatic Eye: COMMON NORMALS: conjunctivae normal CONJUNCTIVA: Yes conjunctivae normal Neck/C-Spine: COMMON NORMALS: full ROM and supple Chest: COMMONS NORMALS: normal inspection of the chest Resp: COMMON NORMALS: No retractions EFFORT & INSPECTION: Yes respiratory distress AUSCULTATION: rales Cardio: COMMON NORMALS: regular rate, regular rhythm and No murmurs present (Cardio) RATE: regular rate RHYTHM: regular rhythm GI: COMMON NORMALS: Normal to inspection, nondistended, normoactive bowel sounds present, Soft to palpation, non-tender and no masses PALPATION: Yes Soft to palpation Extremity: COMMON NORMALS: normal to inspection and full ROM Neuro: COMMON NORMALS: moves all extremities and no focal motor deficits; negative for patient oriented x3 Psych: COMMON NORMALS: Normal thought process present and cooperative THOUGHT PROCESS: Normal thought process present Skin: COMMON NORMALS: no rashes or lesions noted and no wounds GENERAL SKIN EXAM: no rashes or lesions noted Course Vital Signs: Vital signs: Vital Signs Temperature 97.9 F 09/18/24 12:06 Pulse Rate 78 09/18/24 13:15 Respiratory Rate 20 H 09/18/24 13:15 Blood Pressure 121/59 09/18/24 13:15 Pulse Oximetry 96 09/18/24 13:15 Oxygen Delivery Me thod Nasal Cannula 09/18/24 13:00 Oxygen Flow Rate 4 09/18/24 13:00 MDM - Weakness Medical Decision Making Patient presents here with pneumonia he is also requiring increased oxygen from his baseline spoke to hospitalist he has failed outpatient antibiotics as well will admit for IV antibiotics Medical Records I reviewed the patient's medical records. Lab Data I reviewed the patient's lab results. 09/18/24 11:25 09/18/24 11:25 Radiology Impressions Chest X-Ray 09/18/24 12:08 IMPRESSION: 1. Consolidating infiltrate in the LEFT lower lobe with atelectasis and LEFT basal pleural effusion. Very little change. 2. Cardiac enlargement with increased pulmonary vascularity. Some degree of superimposed CHF could have this appearance. Laboratory Results WBC 7.64 10^3/uL (3.29-11.43) 09/18/24 11:25 RBC 4.35 10^6/uL (3.85-5.65) 09/18/24 11:25 Hgb 12.80 g/dL (11.27-16.99) 09/18/24 11:25 Hct 45.8 % (37-53) 09/18/24 11:25 MCV 105.3 fl (82-101) H 09/18/24 11:25 MCH 29.4 pg (27-33) 09/18/24 11:25 MCHC 27.9 g/dL (30-55) L 09/18/24 11:25 RDW 13.2 % (12.1-15.1) 09/18/24 11:25 Plt Count 154 10^3/cmm (157-399) L 09/18/24 11:25 MPV 10.5 fL (7.4-10.4) H 09/18/24 11:25 Neut % (Auto) 71.1 % 09/18/24 11:25 Lymph % (Auto) 20.7 % 09/18/24 11:25 Tate % (Auto) 6.3 % 09/18/24 11:25 Eos % (Auto) 1.4 % 09/18/24 11:25 Baso % (Auto) 0.1 % 09/18/24 11: Neut # (Auto) 5.43 10^3/uL (1.8-7.7) 09/18/24 11:25 Lymph # (Auto) 1.6 10^3/uL (0.8-4.8) 09/18/24 11:25 Tate # (Auto) 0.5 10^3/uL (0.2-0.9) 09/18/24 11:25 Eos # (Auto) 0.1 10^3/uL (0.0-0.8) 09/18/24 11:25 Baso # (Auto) 0.0 10^3/uL (0.0-0.1) 09/18/24 11:25 Nucleated RBC % (auto) 0 % 09/18/24 11:25 Nucleated RBCs # 0.0 /100WBC 09/18/24 11:25 Sodium 139 mmol/L (136-145) 09/18/24 11:25 Potassium 4.1 mmol/L (3.5-5.1) 09/18/24 11:25 Chloride 98 mmol/L (98-107) 09/18/24 11:25 Carbon Dioxide 38 mmol/L (22-29) H 09/18/24 11:25 Anion Gap 7.1 (5-19) 09/18/24 11:25 BUN 16 mg/dL (8-23) 09/18/24 11:25 Creatinine 0.6 mg/dL (0.7-1.2) L 09/18/24 11:25 GFR Calculation Not Reportable 09/18/24 11:25 Glucose 171 mg/dL (65-115) H 09/18/24 11:25 Calculated Osmolality 293 mOsm/kg (285-295) 09/18/24 11:25 Calcium 8.8 mg/dL (8.5-10.5) 09/18/24 11:25 Total Bilirubin 0.2 mg/dL (0.15-1.2) 09/18/24 11:25 AST 13 U/L (0-40) 09/18/24 11:25 ALT 14 U/L (0-41) 09/18/24 11:25 Alkaline Phosphatase 44 U/L (40-130) 09/18/24 11:25 NT-Pro-B Natriuret Pep 76 pg/mL (0-125) 09/18/24 11:25 Total Protein 6.7 g/dL (6.6-8.7) 09/18/24 11:25 Albumin 4.1 g/dL (3.5-5.2) 09/18/24 11:25 Globulin 2.6 g/dL (1.3-4.6) 09/18/24 11:25 All radiology interpretation(s) finalized by discharge EKG Data EKG 1: I personally reviewed and interpreted this EKG as follows: EKG interpretation date: 09/18/24 EKG interpretation time: 12:04 Interpretation: nsr hr [address] or t wave abnormalities qrs 114 qtc 383 Discharge Plan Discharge Patient Disposition: Admitted As Inpatient Clinical Impression: Pneumonia, Acute respiratory failure with hypoxia Condition: Stable Prescriptions: No Action aspirin 325 mg tablet 325 mg PO DAILY calcium carbonate [Calcium 600] 600 mg calcium (1,500 mg) tablet 600 mg PO DAILY Oliver Multivitamin For Men 200-175-250 mcg tablet 1 tab PO DAILY (DME) lancets [OneTouch Delica Lancets] 33 gauge misc See Rx Instructions .ROUTE .MEDSUPPLY Qty: 100 Rx Instructions: As directed Cardizem 30 mg tablet 30 mg PO BID Qty: 60 2RF clopidogrel 75 mg tablet 75 mg PO DAILY Qty: 30 2RF duloxetine 60 mg capsule,delayed release(DR/EC) 60 mg PO BID Qty: 60 2RF Jardiance 25 mg tablet 25 mg PO QAM Qty: 30 2RF Repatha SureClick 140 mg/mL pen injector 140 mg SUBCUT Q14D Qty: 2 2RF famotidine [Pepcid] 40 mg tablet 40 mg PO DAILY Qty: 30 2RF fenofibrate nanocrystallized [Tricor] 145 mg tablet 145 mg PO DAILY Qty: 30 2RF Flonase Allergy Relief 50 mcg/actuation spray,suspension 1 spray INTRANASAL Q12H Qty: 15.8 2RF Rx Instructions: administer into each nostril Lasix 40 mg tablet 40 mg PO QAM Qty: 30 2RF levothyroxine 100 mcg tablet 100 mcg PO DAILY Qty: 30 2RF metoprolol succinate [Toprol XL] 25 mg tablet extended release 24 hr 25 mg PO DAILY Qty: 30 2RF potassium chloride 10 mEq capsule, extended release 10 meq PO DAILY Qty: 30 2RF tamsulosin [Flomax] 0.4 mg capsule 0.4 mg PO DAILY Qty: 30 2RF tizanidine 2 mg tablet 2 mg PO BEDTIME Qty: 30 2RF topiramate [Topamax] 50 mg tablet 50 mg PO BID Qty: 60 2RF (DME) Hospital Bed See Rx Instructions .Route .MEDSUPPLY Qty: 1 0RF Rx Instructions: As directed (DME) lancets [Ultra Fine Lancets] 30 gauge misc See Rx Instructions .ROUTE .MEDSUPPLY Qty: 100 0RF Rx Instructions: As directed (DME) OneTouch Ultra Blue Test Strip Strip See Rx Instructions .ROUTE .MEDSUPPLY Qty: 50 5RF Rx Instructions: 1 daily (DME) oxygen concentrator w/ portable See Rx Instructions .Route .MEDSUPPLY Qty: 1 0RF Rx Instructions: As directed oxygen concentrator w/portable home fill @4 liters n/c 99 months diclofenac sodium [Voltaren] 1 % Gel 4 g TOPICAL TID PRN (Reason: Pain) Rx Instructions: apply to single knee, ankle, foot; for foot includes sole/toes/top of foot doxycycline hyclate 100 mg tablet 100 mg PO BID 7 Days Qty: 14 0RF losartan 25 mg Tablet 25 mg PO DAILY Referrals: Sade Zhu, [employer] [Primary Care Provider] - Coding Level of Care Code ED Baller Tender for Chg Fwd Related Data Home Medications Medication Instructions Recorded Confirmed aspirin 325 mg tablet 325 mg PO DAILY 12/01/19 09/18/24 calcium carbonate (Calcium 600) 600 mg PO DAILY 12/01/19 09/18/24 lancets 33 gauge (TabbyTouch Delica #100 ea 12/01/19 09/18/24 Lancets) jrasdidw-fil-uvmhm 200 mcg-lycop 1 tab PO DAILY 12/01/19 09/18/24 175 mcg-lutei 250 mcg-herb 178 tablet (Oliver Multivitamin For Men) diclofenac sodium 1 % topical gel 4 g topical TID PRN Pain 11/07/23 09/18/24 losartan 25 mg tablet 25 mg PO DAILY 09/18/24 09/18/24 Previous Rx's Medication Instructions Recorded lancets 30 gauge (Ultra Fine #100 ea 07/31/20 Lancets) blood sugar diagnostic #50 ea 04/28/22 oxygen concentrator w/ portable #1 ea 02/16/23 Hospital Bed #1 ea 02/18/23 clopidogrel 75 mg tablet 75 mg PO DAILY #30 tabs 09/23/23 diltiazem HCl 30 mg tablet 30 mg PO BID #60 tabs 09/23/23 (Cardizem) duloxetine 60 mg capsule,delayed 60 mg PO BID #60 caps 09/23/23 release empagliflozin 25 mg tablet 25 mg PO QAM #30 tabs 09/23/23 (Jardiance) evolocumab 140 mg/mL subcutaneous 140 mg SUBCUT Q14D #2 mL 09/23/23 pen injector (Repatha Diannaick) famotidine 40 mg tablet (Pepcid) 40 mg PO DAILY #30 tabs 09/23/23 fenofibrate nanocrystallized 145 145 mg PO DAILY #30 tabs 09/23/23 mg tablet (Tricor) fluticasone propionate 50 1 spray intranasal Q12H Nasal 09/23/23 mcg/actuation nasal Congestion #15.8 mL spray,suspension (Flonase Allergy Relief) furosemide 40 mg tablet (Lasix) 40 mg PO QAM #30 tabs 09/23/23 levothyroxine 100 mcg tablet 100 mcg PO DAILY #30 tabs 09/23/23 metoprolol succinate 25 mg 25 mg PO DAILY #30 tabs 09/23/23 tablet,extended release 24 hr (Toprol XL) potassium chloride 10 mEq 10 meq PO DAILY #30 caps 09/23/23 capsule,extended release tamsulosin 0.4 mg capsule (Flomax) 0.4 mg PO DAILY #30 caps 09/23/23 tizanidine 2 mg tablet 2 mg PO BEDTIME Muscle Spasm #30 09/23/23 tabs topiramate 50 mg tablet (Topamax) 50 mg PO BID #60 tabs 09/23/23 doxycycline hyclate 100 mg tablet 100 mg PO BID 7 days #14 tabs 09/16/24 Allergies Allergy/AdvReac Type Severity Reaction Status Date / Time No Known Allergies Allergy Verified 09/23/23 13:00
[2024-09-18 12:40] LABS: Basophils % 0.1 %; Eosinophils # 0.1 10^3/uL (0.0-0.8); Eosinophils % 1.4 %; Hematocrit 45.8 % (37-53); Lymphocytes # 1.6 10^3/uL (0.8-4.8); Lymphocytes % 20.7 %; Mean Corpuscular HGB Conc 27.9 g/dL (30-55); Mean Corpuscular Hemoglobin 29.4 pg (27-33); Mean Corpuscular Volume 105.3 fl (82-101); Mean Platelet Volume 10.5 fL (7.4-10.4); Monocytes # 0.5 10^3/uL (0.2-0.9); Monocytes % 6.3 %; Neutrophils # 5.43 10^3/uL (1.8-7.7); Neutrophils % 71.1 %; Nucleated Red Blood Cells % 0 %; Platelet Count 154 10^3/cmm (157-399); Red Blood Count 4.35 10^6/uL (3.85-5.65); Red Cell Distribution Width 13.2 % (12.1-15.1); White Blood Count 7.64 10^3/uL (3.29-11.43)
[2024-09-18 12:58] LABS: Alanine Aminotransferase 14 U/L (0-41); Albumin Level 4.1 g/dL (3.5-5.2); Alkaline Phosphatase 44 U/L (40-130); Anion Gap 7.1 (5-19); Aspartate Amino Transferase 13 U/L (0-40); Blood Urea Nitrogen 16 mg/dL (8-23); Calcium 8.8 mg/dL (8.5-10.5); Carbon Dioxide 38 mmol/L (22-29); Chloride 98 mmol/L (98-107); Creatinine Clr Calc Pharmacy 96.2781; Globulin 2.6 g/dL (1.3-4.6); Glucose 171 mg/dL (65-115); NT Pro B Type Natriuretic Pept 76 pg/mL (0-125); Osmolality Calculated 293 mOsm/kg (285-295); Potassium 4.1 mmol/L (3.5-5.1); Sodium 139 mmol/L (136-145); Total Bilirubin 0.2 mg/dL (0.15-1.2); Total Protein 6.7 g/dL (6.6-8.7)
[2024-09-18] MEDS: cefTRIAXone 1,000 mg SDV 1000 MG IVP (13:07)
[2024-09-18] MEDS: azithromycin 500 MG in sodium chloride 0.9% 250 ML 250 MG IV (13:15)
[2024-09-18 14:01] LABS: Covid PCR NEGATIVE (Negative); Influenza A NEGATIVE (Negative); Influenza B NEGATIVE (Negative); Respiratory Syncytial Virus Ce NEGATIVE (Negative)
--- NOTE | 2024-09-18 14:47 | PM.HP ---
Providers/Chief Complaint Admitting Physician: Naomi Gutiérrez MD Primary Care Provider: HARVEY Lakhani Chief Complaint: SOB History of Present Illness Sathish Caballero is a 74 year old male The patient is a 74-year-old male presenting with hypoxemia and increased confusion. He resides at [facility] and was sent to the emergency room due to hypoxemia noted at the assisted. The patient has dementia at baseline, which limits the history obtained. Previously, he was seen on Wednesday night with similar symptoms of increasing confusion and hypoxemia on room air. Typically, he is on a couple of liters of oxygen by nasal cannula. During that emergency department visit, a chest X-ray indicated left lower lobe pneumonia, but his white blood cell count was normal. He was treated with doxycycline and discharged back to the care home facility. Despite this treatment, his condition has necessitated increased oxygen support, now requiring 4 liters by nasal cannula with oxygen saturations at 91%. There have been attempts to manage his condition outside of the hospital without success. Care is complicated by his dementia and underlying health conditions including diabetes mellitus, atherosclerotic heart disease, hyperlipidemia, hypertension, hyperthyroidism, COPD, and benign prostatic hypertrophy. With increasing need for oxygen therapy and persistent symptoms, he is being admitted for further evaluation and treatment. Review of Systems General: Reports: Other (ROS as per HPI or as otherwise noted here) Narrative: As per the patient though not considered reliable: - Respiratory: Reports shortness of breath, denies cough and chest pain. - Gastrointestinal: Denies constipation and diarrhea. - Genitourinary: Denies problems urinating. Medications/Allergies Home Medications Medication Instructions Recorded Confirmed Last Taken Type aspirin 325 mg tablet 325 mg PO DAILY 12/01/19 09/18/24 11/06/23 History calcium carbonate (Calcium 600) 600 mg PO DAILY 12/01/19 09/18/24 11/06/23 History lancets 33 gauge (OneTouch Delica #100 ea 12/01/19 09/18/24 Unknown History Lancets) afyprmhi-wll-rfwyz 200 mcg-lycop 1 tab PO DAILY 12/01/19 09/18/24 11/06/23 History 175 mcg-lutei 250 mcg-herb 178 tablet (Oliver Multivitamin For Men) lancets 30 gauge (Ultra Fine #100 ea 07/31/20 09/18/24 Unknown Rx Lancets) blood sugar diagnostic #50 ea 04/28/22 09/18/24 Unknown Rx oxygen concentrator w/ portable #1 ea 02/16/23 09/18/24 Unknown Rx Hospital Bed #1 ea 02/18/23 09/18/24 Unknown Rx clopidogrel 75 mg tablet 75 mg PO DAILY #30 tabs 09/23/23 09/18/24 11/06/23 Rx diltiazem HCl 30 mg tablet 30 mg PO BID #60 tabs 09/23/23 09/18/24 11/06/23 Rx (Cardizem) duloxetine 60 mg capsule,delayed 60 mg PO BID #60 caps 09/23/23 09/18/24 11/06/23 Rx release empagliflozin 25 mg tablet 25 mg PO QAM #30 tabs 09/23/23 09/18/24 11/06/23 Rx (Jardiance) evolocumab 140 mg/mL subcutaneous 140 mg SUBCUT Q14D #2 mL 09/23/23 09/18/24 11/02/23 Rx pen injector (Repathyvette Bustamanteick) famotidine 40 mg tablet (Pepcid) 40 mg PO DAILY #30 tabs 09/23/23 09/18/24 11/06/23 Rx fenofibrate nanocrystallized 145 145 mg PO DAILY #30 tabs 09/23/23 09/18/24 11/06/23 Rx mg tablet (Tricor) fluticasone propionate 50 1 spray intranasal Q12H Nasal 09/23/23 09/18/24 Unknown Rx mcg/actuation nasal Congestion #15.8 mL spray,suspension (Flonase Allergy Relief) furosemide 40 mg tablet (Lasix) 40 mg PO QAM #30 tabs 09/23/23 09/18/24 11/06/23 Rx levothyroxine 100 mcg tablet 100 mcg PO DAILY #30 tabs 09/23/23 09/18/24 11/06/23 Rx metoprolol succinate 25 mg 25 mg PO DAILY #30 tabs 09/23/23 09/18/24 11/06/23 Rx tablet,extended release 24 hr (Toprol XL) potassium chloride 10 mEq 10 meq PO DAILY #30 caps 09/23/23 09/18/24 11/06/23 Rx capsule,extended release tamsulosin 0.4 mg capsule (Flomax) 0.4 mg PO DAILY #30 caps 09/23/23 09/18/24 11/06/23 Rx tizanidine 2 mg tablet 2 mg PO BEDTIME Muscle Spasm #30 09/23/23 09/18/24 Unknown Rx tabs topiramate 50 mg tablet (Topamax) 50 mg PO BID #60 tabs 09/23/23 09/18/24 11/06/23 Rx diclofenac sodium 1 % topical gel 4 g topical TID PRN Pain 11/07/23 09/18/24 Unknown History doxycycline hyclate 100 mg tablet 100 mg PO BID 7 days #14 tabs 09/16/24 09/18/24 Unknown Rx losartan 25 mg tablet 25 mg PO DAILY 09/18/24 09/18/24 Unknown History Allergies Allergy/AdvReac Type Severity Reaction Status Date / Time No Known Allergies Allergy Verified 09/23/23 13:00 PFSH Acute PFSH: Medical History (Updated 09/18/24 @ 23:29 by Naomi Gutiérrez MD) History of PFTs 2019 restrictive ventilatory defect, mil decrease DLCO COVID-19 10/2021 Hypoxia Mixed anxiety depressive disorder Essential (primary) hypertension Aneurysm of unspecified site Vitamin D insufficiency Cellulitis of left eyelid O2 dependent Platelets decreased Left sciatic nerve pain Type 2 diabetes mellitus with hyperglycemia Atrial tachycardia Shortness of breath Osteoarthritis of both knees Heartburn Helminthiasis, unspecified ASHD (arteriosclerotic heart disease) Surgical History (Updated 09/18/24 @ 23:22 by Naomi Gutiérrez MD) S/P PTCA (percutaneous transluminal coronary angioplasty) LAD H/O eye surgery Left Family History Sister Cancer Other CAD (coronary artery disease) Diabetes Stroke Social History Smoking and tobacco/nicotine status: former use of tobacco/nicotine Second hand smoke exposure: No Alcohol intake: former Substance/Drug Use: never Adopted: No Caregiver/support person: No Lives independently: Yes Household members: spouse Housing: House Marital status: Current occupational status: retired Do you think of yourself as: Straight/Heterosexual Current gender identity: Male Vitals/I&O/Wt Last Vital Signs Temp 97.9 F 09/18/24 12:06 Pulse 81 09/18/24 14:00 Resp 19 H 09/18/24 14:00 BP 122/66 09/18/24 14:00 Pulse Ox 97 09/18/24 14:00 O2 Del Method Nasal Cannula 09/18/24 13:35 O2 Flow Rate 4 09/18/24 13:35 Weight last 48 hrs Weight 104.326 kg Physical Exam Narrative: Constitutional: Asleep, easily arousable, alert once awakened, cooperative HEENT: Normocephalic, left pupil is large and irregular, right is reactive, oropharynx with slightly dry mucous membranes Neck: Supple Respiratory: Significantly decreased breath sounds left base, good aeration on the right as well in the left apex, no wheezes or rhonchi Cardiovascular: Regular rate and rhythm, no murmurs, gallops, or rubs Abdomen: Soft, nontender, nondistended with positive bowel sounds Extremities: No pitting edema Neuro: Speech clear, face symmetric, moves all extremities Psych: flat affect, oriented to person but not to place or situation, inconsistent answers to questions Data 09/18/24 11:25 09/18/24 11:25 Other Labs: Radiology Impressions Chest X-Ray 09/18/24 12:08 IMPRESSION: 1. Consolidating infiltrate in the LEFT lower lobe with atelectasis and LEFT basal pleural effusion. Very little change. 2. Cardiac enlargement with increased pulmonary vascularity. Some degree of superimposed CHF could have this appearance. Laboratory Results WBC 7.64 10^3/uL (3.29-11.43) 09/18/24 11:25 RBC 4.35 10^6/uL (3.85-5.65) 09/18/24 11:25 Hgb 12.80 g/dL (11.27-16.99) 09/18/24 11:25 Hct 45.8 % (37-53) 09/18/24 11:25 MCV 105.3 fl (82-101) H 09/18/24 11:25 MCH 29.4 pg (27-33) 09/18/24 11:25 MCHC 27.9 g/dL (30-55) L 09/18/24 11:25 RDW 13.2 % (12.1-15.1) 09/18/24 11:25 Plt Count 154 10^3/cmm (157-399) L 09/18/24 11:25 MPV 10.5 fL (7.4-10.4) H 09/18/24 11:25 Neut % (Auto) 71.1 % 09/18/24 11:25 Lymph % (Auto) 20.7 % 09/18/24 11:25 Tift % (Auto) 6.3 % 09/18/24 11:25 Eos % (Auto) 1.4 % 09/18/24 11:25 Baso % (Auto) 0.1 % 09/18/24 11:25 Neut # (Auto) 5.43 10^3/uL (1.8-7.7) 09/18/24 11:25 Lymph # (Auto) 1.6 10^3/uL (0.8-4.8) 09/18/24 11:25 Tift # (Auto) 0.5 10^3/uL (0.2-0.9) 09/18/24 11:25 Eos # (Auto) 0.1 10^3/uL (0.0-0.8) 09/18/24 11:25 Baso # (Auto) 0.0 10^3/uL (0.0-0.1) 09/18/24 11:25 Nucleated RBC % (auto) 0 % 09/18/24 11:25 Nucleated RBCs # 0.0 /100WBC 09/18/24 11:25 Sodium 139 mmol/L (136-145) 09/18/24 11:25 Potassium 4.1 mmol/L (3.5-5.1) 09/18/24 11:25 Chloride 98 mmol/L (98-107) 09/18/24 11:25 Carbon Dioxide 38 mmol/L (22-29) H 09/18/24 11:25 Anion Gap 7.1 (5-19) 09/18/24 11:25 BUN 16 mg/dL (8-23) 09/18/24 11:25 Creatinine 0.6 mg/dL (0.7-1.2) L 09/18/24 11:25 GFR Calculation Not Reportable 09/18/24 11:25 Glucose 171 mg/dL (65-115) H 09/18/24 11:25 Calculated Osmolality 293 mOsm/kg (285-295) 09/18/24 11:25 Calcium 8.8 mg/dL (8.5-10.5) 09/18/24 11:25 Total Bilirubin 0.2 mg/dL (0.15-1.2) 09/18/24 11:25 AST 13 U/L (0-40) 09/18/24 11:25 ALT 14 U/L (0-41) 09/18/24 11:25 Alkaline Phosphatase 44 U/L (40-130) 09/18/24 11:25 NT-Pro-B Natriuret Pep 76 pg/mL (0-125) 09/18/24 11:25 Total Protein 6.7 g/dL (6.6-8.7) 09/18/24 11:25 Albumin 4.1 g/dL (3.5-5.2) 09/18/24 11:25 Globulin 2.6 g/dL (1.3-4.6) 09/18/24 11:25 Coronavirus (PCR) Negative (Negative) 09/18/24 13:00 Influenza A (PCR) Negative (Negative) 09/18/24 13:00 Influenza Type B (PCR) Negative (Negative) 09/18/24 13:00 RSV (PCR) Negative (Negative) 09/18/24 13:00 Micro: Microbiology 09/18/24 12:57 Blood Culture - Preliminary Blood SPECIMEN COLLECTED 09/18/24 13:00 Blood Culture - Preliminary Blood SPECIMEN COLLECTED A&P Assessment and plan (1) Pneumonia: Left lower lobe, diagnosis at admission, organism unknown. Has been on doxycycline outpatient prescribed from the ED a few nights ago. Appearance on imaging studies and findings on physical exam are concerning for effusion. Normal BNP, Echo in 2018 EF 55%. Has not shown improvement per assisted staff despite clinical therapy. (2) ASHD (arteriosclerotic heart disease): Chronically on aspirin, Plavix, beta-blockade and lipid controlling agents (3) Essential (primary) hypertension: Chronically on diltiazem, furosemide plus potassium, losartan, metoprolol (4) Type 2 diabetes mellitus with hyperglycemia: Chronically on empagliflozin Qualifiers: Diabetes mellitus remote computer terminal operator insulin use: without remote computer terminal operator use Qualified Code(s): E11.65 - Type 2 diabetes mellitus with hyperglycemia (5) Hyperlipidemia, mixed: Chronically on Repatha and fenofibrate (6) Adult onset hypothyroidism: Chronically on levothyroxine (7) Obesity hypoventilation syndrome: Has lost some weight since last evaluated. Intolerant of BiPAP which has been recommended in the past. Has known restrictive lung disease with mildly decreased DLCO when last checked in 2020. chronically on oxygen at 2 L by nasal cannula. (8) Dementia: Qualifiers: Dementia type: unspecified type Dementia severity: moderate Dementia behavioral or psychological symptom: without behavioral, psychotic, or mood disturbance or anxiety Qualified Code(s): F03.B0 - Unspecified dementia, moderate, without behavioral disturbance, psychotic disturbance, mood disturbance, and anxiety Plan Urinary hesitancy on chronic Flomax On chronic Topamax On chronic's duloxetine Observation admission for now given normal white count and vital signs beyond slight increase in oxygen therapy Check CT of the chest with contrast Continue Rocephin and azithromycin Breathing treatments Oxygen therapy, weaning back to baseline 2 L by nasal cannula as able Continuing home aspirin, Plavix, allopurinol, diltiazem, furosemide, potassium, metoprolol, losartan Telemetry monitoring secondary to cardiac history and increased oxygen need Monitor blood pressures for need to adjust usual medications Add sliding scale insulin, hold empagliflozin currently Home Repatha currently held but is up-to-date on dosing, Continuing fenofibrate Continuing home levothyroxine, Flomax, Topamax, duloxetine VTE prophylaxis: Lovenox GI Prophylaxis: PPI Antibiotics: Rocephin and Azithromycin Pending studies: blood cultures Telemetry: ordered Ferrell: not currently indicated Line(s): peripheral IVs Disposition plan: anticipate that patient will return to [facility] upon discharge Code Status: Full Code Supportive care otherwise Findings, concerns and plans were discussed with patient as much as he could follow Attestations Medical Necessity Statement*: Currently anticipate a stay less than two midnights. The patient presents with worsened respiratory status, demonstrating increased oxygen requirements from his baseline. Primary concerns include the risk of progressive hypoxemia, potentially due to unresolved pneumonia, exacerbation of COPD, or other cardiopulmonary causes. Considering his history of multiple comorbidities, including type 2 diabetes mellitus and atherosclerotic heart disease, his medical regimen must be carefully managed to avoid exacerbations of these chronic conditions. A multidisciplinary approach involving potential adjustments in diuretic therapy and continuous monitoring of oxygen saturation is essential in managing this complex presentation. Potential barriers include inadequate response to initial antibiotic therapy and limited patient engagement due to baseline dementia. Management plans prioritize enhancing oxygenation, preventing further respiratory decline, and optimizing care for his underlying medical problems. Additionally further imaging studies have been ordered. Diagnoses Pneumonia J18.9 ASHD (arteriosclerotic heart disease) I25.10 Essential (primary) hypertension I10 Type 2 diabetes mellitus with hyperglycemia, without long-term current use of insulin E11.65 Diabetes mellitus usp insulin use: without usp use Hyperlipidemia, mixed E78.2 Adult onset hypothyroidism E03.8 Obesity hypoventilation syndrome E66.2 Moderate dementia without behavioral disturbance, psychotic disturbance, mood disturbance, or anxiety, unspecified dementia type F03.B0 Dementia type: unspecified type Dementia severity: moderate Dementia behavioral or psychological symptom: without behavioral, psychotic, or mood disturbance or anxiety
--- NOTE | 2024-09-18 16:53 | CTR_ITS ---
PROCEDURE INFORMATION: Exam: CT Chest With Contrast; Diagnostic Exam date and time: 09/18/2024 6:21 PM Age: 74 years old Clinical indication: Other: Left lung consolidation TECHNIQUE: Imaging protocol: Diagnostic computed tomography of the chest with contrast. Radiation optimization: All CT scans at this facility use at least one of these dose optimization techniques: automated exposure control; mA and/or kV adjustment per patient size (includes targeted exams where dose is matched to clinical indication); or iterative reconstruction. Contrast material: OMNIPAQUE 350; Contrast volume: 100 ml; Contrast route: INTRAVENOUS (IV); COMPARISON: CR XR chest 1V portable [id number] 09/18/2024 12:13 PM RADIATION DOSE METRICS: Total DLP (mGy-cm): 594 FINDINGS: Lungs: See Pleural spaces finding. Pleural spaces: Left pleural effusion with associated bibasal atelectasis. Heart: There is no cardiomegaly. There is no pericardial effusion. Lymph nodes: No pathologically enlarged lymph nodes (by short axis size criteria). Vasculature: Dilatation of the aortic root. No aortic dissection. Bones/joints: There is degenerative disease of the spine. Soft tissues: Unremarkable. Other findings: There is motion artifact. CT/CT chest w con* [id number] IMPRESSION: Left pleural effusion with associated atelectasis.
[2024-09-18] MEDS: enoxaparin 40 mg/0.4 mL Syringe SUBCUT (17:39)
[2024-09-18] MEDS: fluticasone nasal spray 16gm Btl 1 SPRAY INTRANASAL (17:40)
[2024-09-18] MEDS: duloxetine 60 mg Capsule PO (17:40)
[2024-09-18] MEDS: topiramate 25 mg Tablet 50 MG PO (17:40)
[2024-09-18] MEDS: dilTIAZem 30 mg Tablet PO (17:40)
[2024-09-18 18:14] LABS: Glucose Point of Care 83 mg/dL (70-110)
[2024-09-18] MEDS: iohexol 350 mg/mL 500 mL Btl (per mL) IV (18:26)
[2024-09-18 21:01] LABS: Glucose Point of Care 153 mg/dL (70-110)
[2024-09-18] MEDS: insulin lispro 100 unit/1 mL SUBCUT (21:12)
[2024-09-19] VITALS (8 sets, daily range): BP systolic 111–154; BP diastolic 59–74; PULSE 79–91; RESP 16–20; TEMP 36.3–37.2; O2SAT 94–96
[2024-09-19] MEDS: FUROsemide 40 mg Tablet PO (05:06)
[2024-09-19] MEDS: fluticasone nasal spray 16gm Btl 1 SPRAY INTRANASAL ×2 (05:06→17:07)
[2024-09-19 05:47] LABS: Basophils % 0.2 %; Eosinophils # 0.1 10^3/uL (0.0-0.8); Eosinophils % 0.7 %; Lymphocytes # 1.5 10^3/uL (0.8-4.8); Mean Corpuscular HGB Conc 27.8 g/dL (30-55); Mean Corpuscular Hemoglobin 29.4 pg (27-33); Mean Corpuscular Volume 105.5 fl (82-101); Mean Platelet Volume 10.5 fL (7.4-10.4); Monocytes # 0.6 10^3/uL (0.2-0.9); Monocytes % 6.6 %; Nucleated Red Blood Cells % 0 %; Platelet Count 151 10^3/cmm (157-399); Red Blood Count 4.36 10^6/uL (3.85-5.65); Red Cell Distribution Width 12.9 % (12.1-15.1); White Blood Count 8.51 10^3/uL (3.29-11.43)
[2024-09-19 06:03] LABS: Anion Gap 7.4 (5-19); Blood Urea Nitrogen 15 mg/dL (8-23); C Reactive Protein 5.6 mg/L (0.0-4.9); Calcium 8.9 mg/dL (8.5-10.5); Chloride 100 mmol/L (98-107); Glucose 111 mg/dL (65-115); Magnesium 2.1 mg/dL (1.7-2.3); Osmolality Calculated 300 mOsm/kg (285-295); Potassium 4.4 mmol/L (3.5-5.1); Sodium 144 mmol/L (136-145)
[2024-09-19 06:19] LABS: Carbon Dioxide 41 mmol/L (22-29)
[2024-09-19 07:07] LABS: Glucose Point of Care 102 mg/dL (70-110)
[2024-09-19] MEDS: losartan 50 mg Tablet 25 MG PO (09:29)
[2024-09-19] MEDS: metoprolol succinate ER (24 HR) 25 mg Tablet PO (09:29)
[2024-09-19] MEDS: tamsulosin 0.4 mg Capsule PO (09:29)
[2024-09-19] MEDS: duloxetine 60 mg Capsule PO ×2 (09:29→17:36)
[2024-09-19] MEDS: pantoprazole DR 40 mg Tablet PO (09:29)
[2024-09-19] MEDS: aspirin 325 mg Tablet PO (09:29)
[2024-09-19] MEDS: levothyroxine 100 mcg Tablet PO (09:29)
[2024-09-19] MEDS: dilTIAZem 30 mg Tablet PO ×2 (09:29→17:36)
[2024-09-19] MEDS: topiramate 25 mg Tablet 50 MG PO ×2 (09:29→17:36)
[2024-09-19] MEDS: potassium chloride ER 10 mEq Tablet PO (09:29)
[2024-09-19] MEDS: fenofibrate 145 mg Tablet PO (09:29)
[2024-09-19] MEDS: clopidogrel 75 mg Tablet PO (09:29)
--- NOTE | 2024-09-19 10:01 | PC.CHAP ---
Pastoral Care Encounter/Spiritual Assessment Type of Contact [] Declined extruder operator horizontal visit [] Patient/Family/Request visit [] Outpatient visit [] Follow-up visit [] Physician referral [] Code/Alert [] Routine visit [] Staff referral [] Actively dying [x] Patient sleeping [] Family support [] [] Out of room [] Palliative care [] [] Receiving care in room [] Pre-surgical visit [] Trauma [] Long length of stay [] ICU visit [] Other: Relational/Emotional Strength [] Patient feels connected with others/family/visitors/staff [] Distress [] Loneliness/isolation [] Abandonment Spirituality of Patient [] Person of Alexia [] Attends Temple of their Alexia [] Believes in Prayer [] Reads Bible or Advent materials [] There are Spiritual issues to be addressed Professor Of Exercise Science Interventions [] Prayer [] Active listening [] Non-anxious presence [] Spiritual/emotional support [] Crisis/trauma care [] Spiritual counseling [] Bereavement support [] Provided bereavement packet [] Provided Bible/devotional materials [] Provided toy/stuffed animal, coloring book to patient or family member [] Provided Communion [] Anointing/[place] [] Salvation [] Completed spiritual assessment [] Other: Impact on Illness or Injury [] Angry [] Fearful [] Anxious [] Often cries [] Exhaustion [] Unable to work [] Unable to attend lutheran [] Unable to walk/stand [] Unable to read [] Unable to drive [] Unable to eat/drink [] Unable to sleep [] Unable to be with family [] Patient intubated [] Other: Summary Time spent with patient
--- NOTE | 2024-09-19 12:07 | US_ITS ---
WS: [id number] Ultrasound chest, LEFT. HISTORY: LEFT pleural effusion. Chest CT 09/18/2024. Several images of the LEFT chest have been submitted. There is a complex pleural collection which is probably a complex pleural effusion with low-level echoes throughout. Collapsed lung is noted deep to the effusion. This does appear to be a complex effusion which has progressed in size since 4. US/US chest [id number] IMPRESSION: Complex collection in the LEFT pleural space is likely a complex pleural effusi on which is moderate in size. Pleural effusion has increased since 09/18/2024 a s comparing the ultrasound to CT. If there is concern for increasing pleural ef fusion and complexity of the effusion, suggesting hemorrhage or infection, foll ow-up chest CT can be obtained.
--- NOTE | 2024-09-19 12:15 | PM.PN ---
Subjective Subjective: He is hard of hearing. He denies any complaints. He states he would be okay with trying to drain out fluid from under his left lung. However, he is also not oriented and does not know where he currently is. Vitals/I&O/Wt Last Vital Signs Temp 98.2 F 09/19/24 11:59 Pulse 81 09/19/24 11:59 Resp 18 09/19/24 11:59 BP 124/59 09/19/24 11:59 Pulse Ox 94 09/19/24 11:59 O2 Del Method Nasal Cannula 09/19/24 11:59 O2 Flow Rate 4 09/19/24 09:08 09/18/24 09/19/24 09/19/24 22:59 06:59 14:59 Intake Total 360 / 360 Output Total 250 / 250 Balance 110 / 110 Weight last 48 hrs Weight 99.518 kg Weight 102.557 kg Weight 104.326 kg Physical Exam Narrative: Eating lunch. Hard of hearing. Const: COMMON NORMALS: alert; negative for patient oriented x3 GENERAL APPEARANCE: cooperative ORIENTATION/CONSCIOUSNESS: Yes awake HENMT: COMMON NORMALS: oropharynx normal Neck/C-Spine: COMMON NORMALS: no JVD Resp: COMMON NORMALS: normal respiratory effort AUSCULTATION: diminished lung sounds on the left in the lower lung escoto Cardio: COMMON NORMALS: no JVD, regular rhythm, S1 normal heart sound present, S2 normal heart sound present and No murmurs present (Cardio) RHYTHM: regular rhythm HEART SOUNDS: S1 normal heart sound present and S2 normal heart sound present GI: COMMON NORMALS: Normal to inspection, nondistended, normoactive bowel sounds present, Soft to palpation and non-tender PALPATION: Yes Soft to palpation Extremity: COMMON NORMALS: no joint enlargement and no pedal edema Neuro: COMMON NORMALS: moves all extremities; negative for patient oriented x3 SENSORIUM/ORIENTATION: Yes alert Skin: COMMON NORMALS: no rashes or lesions noted GENERAL SKIN EXAM: no rashes or lesions noted Data 09/19/24 05:24 09/19/24 05:24 Micro: Microbiology 09/18/24 12:57 Blood Culture - Preliminary Blood SPECIMEN COLLECTED 09/18/24 13:00 Blood Culture - Preliminary Blood SPECIMEN COLLECTED A&P Assessment and plan (1) Pneumonia: Reviewed vitals, CBC, BMP, CRP, coronavirus, influenza, RSV PCR. Chest CT. Reviewed ER note, admitting provider note. Discussed with patient, discussed with nursing, caser. Discussed with patient's and son. They include patient would be okay with setting up for thoracentesis for additional assessment of pleural effusion, assessment for possible parapneumonic effusion. Discussed risk of including procedure, pneumothorax, bleeding. TSH reviewed, noted normal on September 16. Reported increased oxygen requirement on 4 L, noted previously on 2 L. At long term noted requiring as high as 5 L. Continue ceftriaxone, azithromycin. Reviewed blood culture, so far negative. Left lower lobe, diagnosis at admission, organism unknown. Has been on doxycycline outpatient prescribed from the ED a few nights ago. Appearance on imaging studies and findings on physical exam are concerning for effusion. Normal BNP, Echo in 2018 EF 55%. Has not shown improvement per long term staff despite clinical therapy. (2) ASHD (arteriosclerotic heart disease): Chronically on aspirin, Plavix, beta-blockade and lipid controlling agents (3) Essential (primary) hypertension: Chronically on diltiazem, furosemide plus potassium, losartan, metoprolol (4) Type 2 diabetes mellitus with hyperglycemia: Chronically on empagliflozin Qualifiers: Diabetes mellitus penitentiary insulin use: without terminal operator use Qualified Code(s): E11.65 - Type 2 diabetes mellitus with hyperglycemia (5) Hyperlipidemia, mixed: Chronically on Repatha and fenofibrate (6) Adult onset hypothyroidism: Chronically on levothyroxine (7) Obesity hypoventilation syndrome: Has lost some weight since last evaluated. Intolerant of BiPAP which has been recommended in the past. Has known restrictive lung disease with mildly decreased DLCO when last checked in 2019. chronically on oxygen at 2 L by nasal cannula. (8) Dementia: Qualifiers: Dementia type: unspecified type Dementia severity: moderate Dementia behavioral or psychological symptom: without behavioral, psychotic, or mood disturbance or anxiety Qualified Code(s): F03.B0 - Unspecified dementia, moderate, without behavioral disturbance, psychotic disturbance, mood disturbance, and anxiety Plan Urinary hesitancy on chronic Flomax On chronic Topamax On chronic's duloxetine Continuing home aspirin, Plavix, allopurinol, diltiazem, furosemide, potassium, metoprolol, losartan Telemetry monitoring secondary to cardiac history and increased oxygen need Monitor blood pressures for need to adjust usual medications Add sliding scale insulin, hold empagliflozin currently Home Repatha currently held but is up-to-date on dosing, Continuing fenofibrate Continuing home levothyroxine, Flomax, Topamax, duloxetine Disposition plan: anticipate that patient will return to [facility] upon discharge Code Status: Full Code Attestations Medical Necessity Statement*: Continue hospitalization for assessment and management of worsening hypoxia, possible pneumonia with new left pleural effusion. Coding Level of Care Code Acute Code for Chg Fwd Diagnoses Pneumonia J18.9 ASHD (arteriosclerotic heart disease) I25.10 Essential (primary) hypertension I10 Type 2 diabetes mellitus with hyperglycemia, without long-term current use of insulin E11.65 Diabetes mellitus terminal operator insulin use: without terminal operator use Hyperlipidemia, mixed E78.2 Adult onset hypothyroidism E03.8 Obesity hypoventilation syndrome E66.2 Moderate dementia without behavioral disturbance, psychotic disturbance, mood disturbance, or anxiety, unspecified dementia type F03.B0 Dementia type: unspecified type Dementia severity: moderate Dementia behavioral or psychological symptom: without behavioral, psychotic, or mood disturbance or anxiety
[2024-09-19] MEDS: cefTRIAXone 1,000 mg SDV 1000 MG IVP (13:00)
[2024-09-19] MEDS: azithromycin 500 MG in sodium chloride 0.9% 250 ML 250 MG IV (15:03)
[2024-09-19 16:03] LABS: Glucose Point of Care 126 mg/dL (70-110)
[2024-09-19 16:03] LABS: Glucose Point of Care 135 mg/dL (70-110)
--- NOTE | 2024-09-19 18:34 | PC.NURSE ---
Pt has pulled 3 IV out through this shift. Pt has no IVP medications until 09/20/24 at 1300, physician notified and okayed to leave access out at this time.
[2024-09-19 21:29] LABS: Glucose Point of Care 118 mg/dL (70-110)
[2024-09-20] VITALS (8 sets, daily range): BP systolic 104–130; BP diastolic 57–82; PULSE 73–102; RESP 16–20; TEMP 36.3–37; O2SAT 92–97
[2024-09-20] MEDS: FUROsemide 40 mg Tablet PO (05:31)
[2024-09-20 06:07] LABS: Basophils % 0.2 %; Eosinophils # 0.1 10^3/uL (0.0-0.8); Eosinophils % 0.8 %; Hematocrit 44.1 % (37-53); Mean Corpuscular HGB Conc 28.3 g/dL (30-55); Mean Corpuscular Hemoglobin 29.1 pg (27-33); Mean Corpuscular Volume 102.8 fl (82-101); Mean Platelet Volume 10.6 fL (7.4-10.4); Monocytes # 0.8 10^3/uL (0.2-0.9); Monocytes % 7.1 %; Neutrophils # 7.69 10^3/uL (1.8-7.7); Neutrophils % 72.4 %; Nucleated Red Blood Cells % 0 %; Platelet Count 147 10^3/cmm (157-399); Red Blood Count 4.29 10^6/uL (3.85-5.65); Red Cell Distribution Width 12.9 % (12.1-15.1); White Blood Count 10.63 10^3/uL (3.29-11.43)
[2024-09-20 06:21] LABS: Glucose Point of Care 102 mg/dL (70-110)
[2024-09-20 06:22] LABS: Anion Gap 10.3 (5-19); Blood Urea Nitrogen 23 mg/dL (8-23); Calcium 9.1 mg/dL (8.5-10.5); Carbon Dioxide 38 mmol/L (22-29); Chloride 95 mmol/L (98-107); Creatinine Clr Calc Pharmacy 93.3026; Glucose 101 mg/dL (65-115); Osmolality Calculated 292 mOsm/kg (285-295); Potassium 4.3 mmol/L (3.5-5.1); Sodium 139 mmol/L (136-145)
[2024-09-20] MEDS: clopidogrel 75 mg Tablet PO (09:08)
[2024-09-20] MEDS: topiramate 25 mg Tablet 50 MG PO ×2 (09:08→18:11)
[2024-09-20] MEDS: metoprolol succinate ER (24 HR) 25 mg Tablet PO (09:08)
[2024-09-20] MEDS: potassium chloride ER 10 mEq Tablet PO (09:08)
[2024-09-20] MEDS: losartan 50 mg Tablet 25 MG PO (09:08)
[2024-09-20] MEDS: levothyroxine 100 mcg Tablet PO (09:08)
[2024-09-20] MEDS: pantoprazole DR 40 mg Tablet PO (09:08)
[2024-09-20] MEDS: fenofibrate 145 mg Tablet PO (09:08)
[2024-09-20] MEDS: duloxetine 60 mg Capsule PO ×2 (09:08→18:11)
[2024-09-20] MEDS: aspirin 325 mg Tablet PO (09:08)
[2024-09-20] MEDS: dilTIAZem 30 mg Tablet PO ×2 (09:08→18:11)
[2024-09-20] MEDS: tamsulosin 0.4 mg Capsule PO (09:08)
--- NOTE | 2024-09-20 09:43 | PC.CHAP ---
Pastoral Care Encounter/Spiritual Assessment Type of Contact [] Declined vamp throater visit [] Patient/Family/Request visit [] Outpatient visit [] Follow-up visit [] Physician referral [] Code/Alert [] Routine visit [] Staff referral [] Actively dying [x] Patient sleeping [] Family support [] [] Out of room [] Palliative care [] [] Receiving care in room [] Pre-surgical visit [] Trauma [] Long length of stay [] ICU visit [] Other: Relational/Emotional Strength [] Patient feels connected with others/family/visitors/staff [] Distress [] Loneliness/isolation [] Abandonment Spirituality of Patient [] Person of Alexia [] Attends Episcopal of their Alexia [] Believes in Prayer [] Reads Bible or Denominational materials [] There are Spiritual issues to be addressed Tag Meter Operator Interventions [] Prayer [] Active listening [] Non-anxious presence [] Spiritual/emotional support [] Crisis/trauma care [] Spiritual counseling [] Bereavement support [] Provided bereavement packet [] Provided Bible/devotional materials [] Provided toy/stuffed animal, coloring book to patient or family member [] Provided Communion [] Anointing/[place] [] Salvation [] Completed spiritual assessment [] Other: Impact on Illness or Injury [] Angry [] Fearful [] Anxious [] Often cries [] Exhaustion [] Unable to work [] Unable to attend cheondoism [] Unable to walk/stand [] Unable to read [] Unable to drive [] Unable to eat/drink [] Unable to sleep [] Unable to be with family [] Patient intubated [] Other: Summary Time spent with patient
--- NOTE | 2024-09-20 10:00 | US_ITS ---
WS: [id number] Ultrasound chest, LEFT. HISTORY: Evaluate pleural effusion for thoracentesis. The complex effusion seen on the prior examination is not as well visualized today. There is atelecta tic lung and is increased small pleural effusion with pleural thickening. US/US chest 23816 IMPRESSION: Decreased size of the visualized LEFT pleural effusion.
[2024-09-20 10:59] LABS: Glucose Point of Care 106 mg/dL (70-110)
--- NOTE | 2024-09-20 17:22 | PM.PN ---
Subjective Subjective: He is overall doing all right. Not oriented. Cooperative. Vitals/I&O/Wt Last Vital Signs Temp 97.9 F 09/20/24 15:39 Pulse 82 09/20/24 15:39 Resp 16 09/20/24 15:39 BP 129/75 09/20/24 15:39 Pulse Ox 96 09/20/24 15:39 O2 Del Method Nasal Cannula 09/20/24 15:39 O2 Flow Rate 2 09/20/24 15:39 09/20/24 09/20/24 09/20/24 06:59 14:59 22:59 Intake Total 720 / 2110 720 / 720 Balance 720 / 1360 720 / 720 Weight last 48 hrs Weight 97.931 kg Weight 99.518 kg Physical Exam Narrative: Sitting up. Hard of hearing. Const: COMMON NORMALS: alert; negative for patient oriented x3 GENERAL APPEARANCE: cooperative ORIENTATION/CONSCIOUSNESS: Yes awake HENMT: COMMON NORMALS: oropharynx normal Neck/C-Spine: COMMON NORMALS: no JVD Resp: COMMON NORMALS: normal respiratory effort AUSCULTATION: diminished lung sounds on the left in the lower lung escoto Cardio: COMMON NORMALS: no JVD, regular rhythm, S1 normal heart sound present, S2 normal heart sound present and No murmurs present (Cardio) RHYTHM: regular rhythm HEART SOUNDS: S1 normal heart sound present and S2 normal heart sound present GI: COMMON NORMALS: Normal to inspection, nondistended, normoactive bowel sounds present, Soft to palpation and non-tender PALPATION: Yes Soft to palpation Extremity: COMMON NORMALS: no joint enlargement and no pedal edema Neuro: COMMON NORMALS: moves all extremities; negative for patient oriented x3 SENSORIUM/ORIENTATION: Yes alert Skin: COMMON NORMALS: no rashes or lesions noted GENERAL SKIN EXAM: no rashes or lesions noted Data 09/20/24 05:34 09/20/24 05:34 Micro: Microbiology 09/18/24 13:00 Blood Culture - Preliminary Blood NEGATIVE TO DATE 09/18/24 12:57 Blood Culture - Preliminary Blood NEGATIVE TO DATE A&P Assessment and plan (1) Pneumonia: I reviewed vitals, CBC, BMP. Reviewed blood culture, so far negative. Reviewed chest ultrasound. Noted complex effusion, reported moderate in size. Discussed with radiologist. Thoracentesis was canceled yesterday, although not clear as to the reason. Repeat ultrasound obtained today, today appears to have improvement in fluid, not enough fluid for thoracentesis. Will continue antibiotic coverage for today. Reassess condition, if continues to do well, possible discharge tomorrow. Discussed with nursing, complex case manager. Improving oxygen requirement, down to 2 L. Continue ceftriaxone, azithromycin. Reviewed blood culture, so far negative. Left lower lobe, diagnosis at admission, organism unknown. Has been on doxycycline outpatient prescribed from the ED a few nights ago. Appearance on imaging studies and findings on physical exam are concerning for effusion. Normal BNP, Echo in 2018 EF 55%. Has not shown improvement per halfway staff despite clinical therapy. (2) ASHD (arteriosclerotic heart disease): Chronically on aspirin, Plavix, beta-blockade and lipid controlling agents (3) Essential (primary) hypertension: Chronically on diltiazem, furosemide plus potassium, losartan, metoprolol (4) Type 2 diabetes mellitus with hyperglycemia: Chronically on empagliflozin Qualifiers: Diabetes mellitus halfway insulin use: without petroleum terminal plant operator use Qualified Code(s): E11.65 - Type 2 diabetes mellitus with hyperglycemia (5) Hyperlipidemia, mixed: Chronically on Repatha and fenofibrate (6) Adult onset hypothyroidism: Chronically on levothyroxine (7) Obesity hypoventilation syndrome: Has lost some weight since last evaluated. Intolerant of BiPAP which has been recommended in the past. Has known restrictive lung disease with mildly decreased DLCO when last checked in 2019. chronically on oxygen at 2 L by nasal cannula. (8) Dementia: Qualifiers: Dementia behavioral or psychological symptom: without behavioral, psychotic, or mood disturbance or anxiety Dementia severity: moderate Dementia type: unspecified type Qualified Code(s): F03.B0 - Unspecified dementia, moderate, without behavioral disturbance, psychotic disturbance, mood disturbance, and anxiety Plan Urinary hesitancy on chronic Flomax On chronic Topamax On chronic's duloxetine Continuing home aspirin, Plavix, allopurinol, diltiazem, furosemide, potassium, metoprolol, losartan Telemetry monitoring secondary to cardiac history and increased oxygen need Monitor blood pressures for need to adjust usual medications Add sliding scale insulin, hold empagliflozin currently Home Repatha currently held but is up-to-date on dosing, Continuing fenofibrate Continuing home levothyroxine, Flomax, Topamax, duloxetine Disposition plan: anticipate that patient will return to [facility] upon discharge Code Status: Full Code Attestations Medical Necessity Statement*: Continue hospitalization for assessment and management of pneumonia with new left pleural effusion. and High MDM includes amount and/or complexity of data reviewed/ordered [ resulted lab(s)/test(s), ordered lab(s)/test(s) and other healthcare professional discussion] as documented Diagnoses Pneumonia J18.9 ASHD (arteriosclerotic heart disease) I25.10 Essential (primary) hypertension I10 Type 2 diabetes mellitus with hyperglycemia, without long-term current use of insulin E11.65 Diabetes mellitus petroleum terminal plant operator insulin use: without petroleum terminal plant operator use Hyperlipidemia, mixed E78.2 Adult onset hypothyroidism E03.8 Obesity hypoventilation syndrome E66.2 Moderate dementia without behavioral disturbance, psychotic disturbance, mood disturbance, or anxiety, unspecified dementia type F03.B0 Dementia behavioral or psychological symptom: without behavioral, psychotic, or mood disturbance or anxiety Dementia severity: moderate Dementia type: unspecified type
[2024-09-20 17:39] LABS: Glucose Point of Care 119 mg/dL (70-110)
[2024-09-20] MEDS: fluticasone nasal spray 16gm Btl 1 SPRAY INTRANASAL (18:12)
[2024-09-20] MEDS: cefTRIAXone 1,000 mg SDV 1000 MG IVP (20:13)
[2024-09-20 21:11] LABS: Glucose Point of Care 124 mg/dL (70-110)
--- NOTE | 2024-09-20 22:31 | PC.NURSE ---
patient resting in bed, alert and oriented to self only. pleasantly confused.
[2024-09-21] VITALS: BP 122/74; PULSE 76; RESP 17; TEMP 36.5; O2SAT 97
[2024-09-21 04:00] VITALS: BP 112/70; PULSE 79; RESP 16; TEMP 36.9; O2SAT 97
[2024-09-21 05:13] LABS: Basophils % 0.3 %; Eosinophils # 0.1 10^3/uL (0.0-0.8); Eosinophils % 1.5 %; Hematocrit 42.1 % (37-53); Lymphocytes # 1.7 10^3/uL (0.8-4.8); Lymphocytes % 17.8 %; Mean Corpuscular HGB Conc 29.7 g/dL (30-55); Mean Corpuscular Hemoglobin 29.6 pg (27-33); Mean Corpuscular Volume 99.8 fl (82-101); Mean Platelet Volume 10.6 fL (7.4-10.4); Monocytes # 0.7 10^3/uL (0.2-0.9); Monocytes % 7.8 %; Neutrophils # 6.87 10^3/uL (1.8-7.7); Neutrophils % 72.3 %; Nucleated Red Blood Cells % 0 %; Platelet Count 138 10^3/cmm (157-399); Red Blood Count 4.22 10^6/uL (3.85-5.65); Red Cell Distribution Width 12.9 % (12.1-15.1)
[2024-09-21] MEDS: fluticasone nasal spray 16gm Btl 1 SPRAY INTRANASAL (05:16)
[2024-09-21] MEDS: FUROsemide 40 mg Tablet PO (05:17)
[2024-09-21 05:31] LABS: Blood Urea Nitrogen 25 mg/dL (8-23); Calcium 8.9 mg/dL (8.5-10.5); Carbon Dioxide 36 mmol/L (22-29); Chloride 97 mmol/L (98-107); Creatinine Clr Calc Pharmacy 93.5348; Glucose 156 mg/dL (65-115); Osmolality Calculated 296 mOsm/kg (285-295); Sodium 139 mmol/L (136-145)
[2024-09-21 05:34] LABS: Anion Gap 9.6 (5-19); Potassium 3.6 mmol/L (3.5-5.1)
[2024-09-21 06:42] LABS: Glucose Point of Care 132 mg/dL (70-110)
[2024-09-21 08:00] VITALS: BP 163/63; PULSE 75; RESP 18; TEMP 36.3; O2SAT 97
--- NOTE | 2024-09-21 09:11 | PM.DCS ---
Discharge Providers Date of Admission: 09/19/24 16:11 Date of Discharge: September 21, 2024 Attending Provider at Admission: Naomi Gutiérrez MD Attending Provider at Discharge: Jose Armando Florez Primary Care Provider: HARVEY Lakhani Diagnoses at Discharge Discharge Diagnosis (1) Pneumonia: Status: Acute (2) ASHD (arteriosclerotic heart disease): Status: Chronic (3) Essential (primary) hypertension: Status: Chronic (4) Type 2 diabetes mellitus with hyperglycemia: Status: Chronic Qualifiers: Diabetes mellitus terminal computer operator insulin use: without terminal computer operator use Qualified Code(s): E11.65 - Type 2 diabetes mellitus with hyperglycemia (5) Hyperlipidemia, mixed: Status: Chronic (6) Adult onset hypothyroidism: Status: Chronic (7) Obesity hypoventilation syndrome: Status: Chronic Permanent problem details: intolerant of bipap, on oxygen (8) Dementia: Status: Chronic Qualifiers: Dementia behavioral or psychological symptom: without behavioral, psychotic, or mood disturbance or anxiety Dementia severity: moderate Dementia type: unspecified type Qualified Code(s): F03.B0 - Unspecified dementia, moderate, without behavioral disturbance, psychotic disturbance, mood disturbance, and anxiety Reason for Visit Reason for Visit: SOB Brief History: Sathish Caballero is a 74 year old male The patient is a 74-year-old male presenting with hypoxemia and increased confusion. He resides at [facility] and was sent to the emergency room due to hypoxemia noted at the long-term. The patient has dementia at baseline, which limits the history obtained. Previously, he was seen on Wednesday night with similar symptoms of increasing confusion and hypoxemia on room air. Typically, he is on a couple of liters of oxygen by nasal cannula. During that emergency department visit, a chest X-ray indicated left lower lobe pneumonia, but his white blood cell count was normal. He was treated with doxycycline and discharged back to the care home facility. Despite this treatment, his condition has necessitated increased oxygen support, now requiring 4 liters by nasal cannula with oxygen saturations at 91%. There have been attempts to manage his condition outside of the hospital without success. Care is complicated by his dementia and underlying health conditions including diabetes mellitus, atherosclerotic heart disease, hyperlipidemia, hypertension, hyperthyroidism, COPD, and benign prostatic hypertrophy. With increasing need for oxygen therapy and persistent symptoms, he is being admitted for further evaluation and treatment. Hospital Course Hospital Course While in the hospital he was treated with ceftriaxone, azithromycin, continued on Lasix. Continued with oxygen support on 4 L nasal cannula, gradually tapering down as tolerating. Pleural effusion further assessed with chest ultrasound, initially showing moderate effusion, but on repeat on assessment for possible thoracentesis showing improvement with not enough fluid to drain. He otherwise is doing well. He is feeling better subjectively, he remains afebrile, without leukocytosis. Oxygen requirement has come down to baseline 2 L nasal cannula. His was updated on his condition. He is discharging back to nursing facility, with complete course of cefdinir, azithromycin. Please follow-up for resolution of pneumonia, please reassess complex pleural effusion for continued improvement, or consider repeat thoracentesis attempt in case of progression, plus minus referral to thoracic surgery. Physical Exam Narrative: Sitting up in bed. He reports he is feeling better. Const: COMMON NORMALS: alert GENERAL APPEARANCE: cooperative ORIENTATION/CONSCIOUSNESS: Yes awake HENMT: COMMON NORMALS: oropharynx normal Neck/C-Spine: COMMON NORMALS: no JVD Resp: COMMON NORMALS: normal respiratory effort and clear to auscultation bilaterally AUSCULTATION: clear to auscultation bilaterally Cardio: COMMON NORMALS: no JVD, regular rhythm, S1 normal heart sound present, S2 normal heart sound present and No murmurs present (Cardio) RHYTHM: regular rhythm HEART SOUNDS: S1 normal heart sound present and S2 normal heart sound present GI: COMMON NORMALS: Normal to inspection, nondistended, normoactive bowel sounds present, Soft to palpation and non-tender PALPATION: Yes Soft to palpation Extremity: COMMON NORMALS: no joint enlargement and no pedal edema Neuro: COMMON NORMALS: moves all extremities SENSORIUM/ORIENTATION: Yes alert Skin: COMMON NORMALS: no rashes or lesions noted GENERAL SKIN EXAM: no rashes or lesions noted Discharge Data Studies Completed and Pending Completed Studies During Hospitalization Category Date Time Status CT chest w con* [id number] Routine Cat Scan 09/18/24 16:53 Completed XR chest 1V portable [id number] Stat Exams 09/18/24 12:08 Completed [place] chest [id number] Routine Ultrasound 09/19/24 12:07 Completed [place] chest [id number] Routine Ultrasound 09/20/24 10:00 Completed Pending at discharge Category Date Time Status Basic Metabolic Panel AM LABS Lab 09/22/24 04:00 Ordered Blood Culture Stat Lab 09/18/24 12:57 Results Body Fluid Culture & GS Routine Lab 09/19/24 12:07 Uncollected Complete Blood Count w/Auto AM LABS Lab 09/22/24 04:00 Ordered Cyto Order Verification Routine Lab 09/19/24 12:11 Ordered Cyto Order Verification Routine Lab 09/20/24 10:01 Ordered LDH Pleural Fluid Routine Lab 09/19/24 12:07 Uncollected Left Pleural Fluid Analysis Routine Lab 09/19/24 12:07 Uncollected Pleural Fluid Albumin Routine Lab 09/19/24 12:07 Uncollected Total Protein Pleural Fluid Routine Lab 09/19/24 12:07 Uncollected pH Pleural Fluid Routine Lab 09/19/24 12:07 Uncollected Cytology [PTH] Routine Pth 09/20/24 10:00 Uncollected Radiology Impressions Chest X-Ray 09/18/24 12:08 IMPRESSION: 1. Consolidating infiltrate in the LEFT lower lobe with atelectasis and LEFT basal pleural effusion. Very little change. 2. Cardiac enlargement with increased pulmonary vascularity. Some degree of superimposed CHF could have this appearance. Chest CT 09/18/24 16:53 IMPRESSION: Left pleural effusion with associated atelectasis. Chest Ultrasound 09/20/24 10:00 IMPRESSION: Decreased size of the visualized LEFT pleural effusion. Laboratory Results WBC 9.50 10^3/uL (3.29-11.43) 09/21/24 04:33 RBC 4.22 10^6/uL (3.85-5.65) 09/21/24 04:33 Hgb 12.50 g/dL (11.27-16.99) 09/21/24 04:33 Hct 42.1 % (37-53) 09/21/24 04:33 MCV 99.8 fl (82-101) 09/21/24 04:33 MCH 29.6 pg (27-33) 09/21/24 04:33 MCHC 29.7 g/dL (30-55) L 09/21/24 04:33 RDW 12.9 % (12.1-15.1) 09/21/24 04:33 Plt Count 138 10^3/cmm (157-399) L 09/21/24 04:33 MPV 10.6 fL (7.4-10.4) H 09/21/24 04:33 Neut % (Auto) 72.3 % 09/21/24 04:33 Lymph % (Auto) 17.8 % 09/21/24 04:33 [place] % (Auto) 7.8 % 09/21/24 04:33 Eos % (Auto) 1.5 % 09/21/24 04:33 Baso % (Auto) 0.3 % 09/21/24 04:33 Neut # (Auto) 6.87 10^3/uL (1.8-7.7) 09/21/24 04:33 Lymph # (Auto) 1.7 10^3/uL (0.8-4.8) 09/21/24 04:33 [place] # (Auto) 0.7 10^3/uL (0.2-0.9) 09/21/24 04:33 Eos # (Auto) 0.1 10^3/uL (0.0-0.8) 09/21/24 04:33 Baso # (Auto) 0.0 10^3/uL (0.0-0.1) 09/21/24 04:33 Nucleated RBC % (auto) 0 % 09/21/24 04:33 Nucleated RBCs # 0.0 /100WBC 09/21/24 04:33 Sodium 139 mmol/L (136-145) 09/21/24 04:33 Potassium 3.6 mmol/L (3.5-5.1) 09/21/24 04:33 Chloride 97 mmol/L (98-107) L 09/21/24 04:33 Carbon Dioxide 36 mmol/L (22-29) H 09/21/24 04:33 Anion Gap 9.6 (5-19) 09/21/24 04:33 BUN 25 mg/dL (8-23) H 09/21/24 04:33 Creatinine 0.7 mg/dL (0.7-1.2) 09/21/24 04:33 GFR Calculation Not Reportable 09/21/24 04:33 Glucose 156 mg/dL (65-115) H 09/21/24 04:33 POC Glucose 132 mg/dL (70-110) H 09/21/24 06:32 Calculated Osmolality 296 mOsm/kg (285-295) H 09/21/24 04:33 Calcium 8.9 mg/dL (8.5-10.5) 09/21/24 04:33 Magnesium 2.1 mg/dL (1.7-2.3) 09/19/24 05:24 Total Bilirubin 0.2 mg/dL (0.15-1.2) 09/18/24 11:25 AST 13 U/L (0-40) 09/18/24 11:25 ALT 14 U/L (0-41) 09/18/24 11:25 Alkaline Phosphatase 44 U/L (40-130) 09/18/24 11:25 C-Reactive Protein 5.6 mg/L (0.0-4.9) H 09/19/24 05:24 NT-Pro-B Natriuret Pep 76 pg/mL (0-125) 09/18/24 11:25 Total Protein 6.7 g/dL (6.6-8.7) 09/18/24 11:25 Albumin 4.1 g/dL (3.5-5.2) 09/18/24 11:25 Globulin 2.6 g/dL (1.3-4.6) 09/18/24 11:25 Coronavirus (PCR) Negative (Negative) 09/18/24 13:00 Influenza A (PCR) Negative (Negative) 09/18/24 13:00 Influenza Type B (PCR) Negative (Negative) 09/18/24 13:00 RSV (PCR) Negative (Negative) 09/18/24 13:00 Vitals Last Vital Signs Temp 97.4 F L 09/21/24 08:00 Pulse 75 09/21/24 08:00 Resp 18 09/21/24 08:00 BP 163/63 09/21/24 08:00 Pulse Ox 97 09/21/24 08:00 O2 Del Method Nasal Cannula 09/21/24 08:00 O2 Flow Rate 2.5 09/21/24 08:00 Discharge Plan Discharge Patient Disposition: Xfer SNF Condition: Stable Prescriptions: New cefdinir 300 mg capsule 300 mg PO BID 5 Days Qty: 10 0RF azithromycin 500 mg tablet 500 mg PO DAILY 3 Days Qty: 3 0RF guaifenesin [Mucinex] 1,200 mg tablet extended release 12hr 1,200 mg PO BID 5 Days Qty: 10 0RF Continued aspirin 325 mg tablet 325 mg PO DAILY calcium carbonate [Calcium 600] 600 mg calcium (1,500 mg) tablet 600 mg PO DAILY Oliver Multivitamin For Men 200-175-250 mcg tablet 1 tab PO DAILY (DME) lancets [OneTouch Delica Lancets] 33 gauge misc See Rx Instructions .ROUTE .MEDSUPPLY Qty: 100 Rx Instructions: As directed Cardizem 30 mg tablet 30 mg PO BID Qty: 60 2RF clopidogrel 75 mg tablet 75 mg PO DAILY Qty: 30 2RF duloxetine 60 mg capsule,delayed release(DR/EC) 60 mg PO BID Qty: 60 2RF Jardiance 25 mg tablet 25 mg PO QAM Qty: 30 2RF Repatha SureClick 140 mg/mL pen injector 140 mg SUBCUT Q14D Qty: 2 2RF famotidine [Pepcid] 40 mg tablet 40 mg PO DAILY Qty: 30 2RF fenofibrate nanocrystallized [Tricor] 145 mg tablet 145 mg PO DAILY Qty: 30 2RF Flonase Allergy Relief 50 mcg/actuation spray,suspension 1 spray INTRANASAL Q12H Qty: 15.8 2RF Rx Instructions: administer into each nostril Lasix 40 mg tablet 40 mg PO QAM Qty: 30 2RF levothyroxine 100 mcg tablet 100 mcg PO DAILY Qty: 30 2RF metoprolol succinate [Toprol XL] 25 mg tablet extended release 24 hr 25 mg PO DAILY Qty: 30 2RF potassium chloride 10 mEq capsule, extended release 10 meq PO DAILY Qty: 30 2RF tamsulosin [Flomax] 0.4 mg capsule 0.4 mg PO DAILY Qty: 30 2RF tizanidine 2 mg tablet 2 mg PO BEDTIME Qty: 30 2RF topiramate [Topamax] 50 mg tablet 50 mg PO BID Qty: 60 2RF (DME) Hospital Bed See Rx Instructions .Route .MEDSUPPLY Qty: 1 0RF Rx Instructions: As directed (DME) lancets [Ultra Fine Lancets] 30 gauge misc See Rx Instructions .ROUTE .MEDSUPPLY Qty: 100 0RF Rx Instructions: As directed (DME) blood sugar diagnostic Strip See Rx Instructions .ROUTE .MEDSUPPLY Qty: 50 5RF Rx Instructions: 1 daily (DME) oxygen concentrator w/ portable See Rx Instructions .Route .MEDSUPPLY Qty: 1 0RF Rx Instructions: As directed oxygen concentrator w/portable home fill @4 liters n/c 99 months diclofenac sodium 1 % Gel 4 g TOPICAL TID PRN (Reason: Pain) Rx Instructions: apply to single knee, ankle, foot; for foot includes sole/toes/top of foot losartan 25 mg Tablet 25 mg PO DAILY Discontinued doxycycline hyclate 100 mg tablet 100 mg PO BID 7 Days Qty: 14 0RF Discharge Orders: Discharge Order (Routine); Ordered 09/21/24 Ordered By: Jose Armando Florez Referrals: [facility] [Outside] Sade Zhu FNP-C [Primary Care Provider] - 4-7 days Activity Restrictions/Additional Instructions: Continue nasal cannula oxygen 2 and half liters, wean down as tolerating, target oxygen saturation 90 of 92%. Follow-up with your primary provider for reassessment of recovery after pneumonia, as well as reassessment of left pleural effusion. The effusion has been improving. Consider repeat CT. in case of additional worsening consider repeat attempt at thoracentesis and referral to thoracic surgery. Discharge Attestations Time Spent in Discharge Care*: greater than 30 min Quality Metrics Clinical Quality Measures [ No reported AMI, CVA or VTE this stay] Coding Level of Care Code 71807 Total time (in minutes) for Discharge: 40 Diagnoses Pneumonia J18.9 ASHD (arteriosclerotic heart disease) I25.10 Essential (primary) hypertension I10 Type 2 diabetes mellitus with hyperglycemia, without long-term current use of insulin E11.65 Diabetes mellitus residential insulin use: without terminal computer operator use Hyperlipidemia, mixed E78.2 Adult onset hypothyroidism E03.8 Obesity hypoventilation syndrome E66.2 Moderate dementia without behavioral disturbance, psychotic disturbance, mood disturbance, or anxiety, unspecified dementia type F03.B0 Dementia behavioral or psychological symptom: without behavioral, psychotic, or mood disturbance or anxiety Dementia severity: moderate Dementia type: unspecified type
[2024-09-21] MEDS: pantoprazole DR 40 mg Tablet PO (09:17)
[2024-09-21] MEDS: metoprolol succinate ER (24 HR) 25 mg Tablet PO (09:17)
[2024-09-21] MEDS: dilTIAZem 30 mg Tablet PO (09:17)
[2024-09-21] MEDS: fenofibrate 145 mg Tablet PO (09:17)
[2024-09-21] MEDS: duloxetine 60 mg Capsule PO (09:17)
[2024-09-21] MEDS: aspirin 325 mg Tablet PO (09:17)
[2024-09-21] MEDS: tamsulosin 0.4 mg Capsule PO (09:17)
[2024-09-21] MEDS: topiramate 25 mg Tablet 50 MG PO (09:17)
[2024-09-21 09:18] VITALS: BP 163/63
[2024-09-21] MEDS: potassium chloride ER 10 mEq Tablet PO (09:18)
[2024-09-21] MEDS: clopidogrel 75 mg Tablet PO (09:18)
[2024-09-21] MEDS: losartan 50 mg Tablet 25 MG PO (09:18)
[2024-09-21] MEDS: levothyroxine 100 mcg Tablet PO (09:22)
[2024-09-21 09:28] VITALS: PULSE 59; RESP 18; O2SAT 95
[2024-09-21 11:53] VITALS: BP 110/60; PULSE 85; RESP 14; TEMP 36.6; O2SAT 97
[2024-09-21 12:32] LABS: Glucose Point of Care 139 mg/dL (70-110)
== END 2024-09-21 14:50 | disposition skilled nursing facility (03) | DRG 186 ==
LOC: ER 13:46 → MEDSURG 15:20
PROVIDERS: Admitting Provider Hospitalist; Emergency Provider Emergency Medicine; PCP Nurse Practitioner; Visit Provider Internal Medicine
DX: J90 Pleural effusion, not elsewhere classified (principal); J18.9 Pneumonia, unspecified organism; J44.0 Chronic obstructive pulmonary disease with (acute) lower respiratory infection; E66.2 Morbid (severe) obesity with alveolar hypoventilation; I25.10 Atherosclerotic heart disease of native coronary artery without angina pectoris; I10 Essential (primary) hypertension; E11.65 Type 2 diabetes mellitus with hyperglycemia; E78.5 Hyperlipidemia, unspecified; E03.9 Hypothyroidism, unspecified; Z68.33 Body mass index [BMI] 33.0-33.9, adult; F03.B0 Unspecified dementia, moderate, without behavioral disturbance, psychotic disturbance, mood disturbance, and anxiety; R09.02 Hypoxemia; N40.1 Benign prostatic hyperplasia with lower urinary tract symptoms; R39.11 Hesitancy of micturition; Z99.81 Dependence on supplemental oxygen; Z79.82 Long term (current) use of aspirin; Z79.84 Long term (current) use of oral hypoglycemic drugs; Z87.891 Personal history of nicotine dependence
CPT/HCPCS: 0241U; 32555; 36415; 36416; 71045; 71260; 76604; 80048; 80053; 82962; 83735; 83880; 85025; 86140; 87040; 93005; 96365; 96372; 96375; 99285; G0378; J0456; J0696; J1650; J1815; J7050

== ENCOUNTER 2024-12-23 04:44 | Inpatient (IN) | payer MEDICARE, SELFPAY ==
[2024-12-23] VITALS (66 sets, daily range): BP systolic 90–147; BP diastolic 48–79; PULSE 87–115; RESP 14–28; TEMP 36.6–38.3; O2SAT 90–100; BMI 35.7
--- NOTE | 2024-12-23 04:54 | ECG_ITS ---
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 Measurements Intervals [place] Rate: 102 P: 36 MO: 183 QRS: 7 QRSD: 107 T: 41 QT: 346 QTc: 451 Interpretive Statements SINUS TACHYCARDIA Compared to ECG 09/18/2024 12:04:08 Sinus rhythm no longer present Sinus arrhythmia no longer present Left-axis deviation no longer present Intraventricular conduction delay no longer present ST (T wave) deviation no longer present Electronically Signed On 12-23-2024 23:05:12 [employer] by Isacc Renee M.D. [email or web address]
[2024-12-23 05:03] LABS: Glucose Point of Care 209 mg/dL (70-110)
--- NOTE | 2024-12-23 05:26 | ED_ITS ---
Documented by User: Ifeanyi Gallegossen 12/23/24 06:02 HPI - SOB/Dyspnea 2 General: Chief Complaint: Shortness of Breath/Dyspnea Stated Complaint: RESP. DISTRESS Time Seen by Provider: 12/23/24 04:45 History of Present Illness: HPI Narrative: 74-year-old male long term patient se nt by the long-term care facility over concerns of respiratory distress and shortness of breath. The patient was brought in by emergency medical services rather obtunded with tachypnea and very little in the way of information we do know the patient is full code. The patient has a variety of different medical problems including diabetes and hypertension. The patient is unable to give any meaningful history. Related Data Home Medications Medication Instructions Recorded Confirmed calcium carbonate (Calcium 600) 600 mg PO DAILY 12/01/19 12/23/24 lancets 33 gauge (OneTouch Delica #100 ea 12/01/19 12/23/24 Lancets) xtlyxmeh-vlo-hsiix 200 mcg-lycop 1 tab PO DAILY 12/01/19 12/23/24 175 mcg-lutei 250 mcg-herb 178 tablet (Oliver Multivitamin For Men) diclofenac sodium 1 % topical gel 4 g topical Q8H PRN Pain 11/07/23 12/23/24 losartan 25 mg tablet 50 mg PO DAILY 09/18/24 12/23/24 acetaminophen 325 mg tablet 650 mg PO Q4H PRN Pain 12/23/24 12/23/24 aluminum-mag hydroxide-simethicone 30 ml PO Q5W PRN Indigestion 12/23/24 12/23/24 200 mg-200 mg-20 mg/5 mL oral susp aspirin 81 mg tablet,delayed 81 mg PO DAILY 12/23/24 12/23/24 release bisacodyl 10 mg rectal suppository 10 mg WV DAILY PRN Constipation 12/23/24 12/23/24 (Dulcolax (bisacodyl)) glipizide 5 mg tablet 5 mg PO DAILY 12/23/24 12/23/24 loperamide 2 mg tablet (Imodium 2 mg PO Q24H PRN loose stools 12/23/24 12/23/24 A-D) magnesium hydroxide 400 mg/5 mL 30 ml PO DAILY PRN Constipation 12/23/24 12/23/24 oral suspension (Milk of Magnesia) melatonin 3 mg tablet 3 mg PO BEDTIME 12/23/24 12/23/24 menthol 2.7 mg lozenges (Cough 2.7 mg mucous membrane Q2H PRN 12/23/24 12/23/24 Drops) Cough polyvinyl alcohol 1.4 % eye drops 2 drp ophthalmic (eye) TID 12/23/24 12/23/24 (Artificial Tears (polyvinyl alcohol)) sertraline 25 mg tablet 25 mg PO BEDTIME 12/23/24 12/23/24 sodium phosphates 19 gram-7 118 ml WV DAILY PRN Constipation 12/23/24 12/23/24 gram/118 mL enema (Fleet Enema) tizanidine 4 mg tablet 4 mg PO Q8H PRN Pain 12/23/24 12/23/24 Previous Rx's Medication Instructions Recorded lancets 30 gauge (Ultra Fine #100 ea 07/31/20 Lancets) blood sugar diagnostic #50 ea 04/28/22 oxygen concentrator w/ portable #1 ea 02/16/23 Hospital Bed #1 ea 02/18/23 clopidogrel 75 mg tablet 75 mg PO DAILY #30 tabs 09/23/23 diltiazem HCl 30 mg tablet 30 mg PO BID #60 tabs 09/23/23 (Cardizem) empagliflozin 25 mg tablet 25 mg PO QAM #30 tabs 09/23/23 (Jardiance) evolocumab 140 mg/mL subcutaneous 140 mg SUBCUT Q14D #2 mL 09/23/23 pen injector (Jonas Stephenson) fluticasone propionate 50 1 spray intranasal Q12H Nasal 09/23/23 mcg/actuation nasal Congestion #15.8 mL spray,suspension (Flonase Allergy Relief) levothyroxine 100 mcg tablet 100 mcg PO DAILY #30 tabs 09/23/23 metoprolol succinate 25 mg 25 mg PO DAILY #30 tabs 09/23/23 tablet,extended release 24 hr (Toprol XL) tamsulosin 0.4 mg capsule (Flomax) 0.4 mg PO DAILY #30 caps 09/23/23 tizanidine 2 mg tablet 2 mg PO BEDTIME Muscle Spasm #30 09/23/23 tabs topiramate 50 mg tablet (Topamax) 50 mg PO BID #60 tabs 09/23/23 Allergies Allergy/AdvReac Type Severity Reaction Status Date / Time No Known Allergies Allergy Verified 09/23/23 13:00 Review of Systems 2 General: Reports: ROS unobtainable due to medical condition PFSH ED 2 PFSH: Medical History (Updated 12/23/24 @ 09:17 by Nabor Copeland DO) History of PFTs 2019 restrictive ventilatory defect, mil decrease DLCO COVID-19 10/2021 Hypoxia Mixed anxiety depressive disorder Essential (primary) hypertension Aneurysm of unspecified site Vitamin D insufficiency Cellulitis of left eyelid O2 dependent Platelets decreased Left sciatic nerve pain Type 2 diabetes mellitus with hyperglycemia Atrial tachycardia Shortness of breath Osteoarthritis of both knees Heartburn Helminthiasis, unspecified ASHD (arteriosclerotic heart disease) Surgical History (Updated 09/18/24 @ 23:22 by Naomi Gutiérrez MD) S/P PTCA (percutaneous transluminal coronary angioplasty) LAD H/O eye surgery Left Family History Sister Cancer Other CAD (coronary artery disease) Diabetes Stroke Social History Smoking and tobacco/nicotine status: former use of tobacco/nicotine Second hand smoke exposure: No Alcohol intake: former Substance/Drug Use: never Adopted: No Caregiver/support person: No Lives independently: Yes Household members: spouse Housing: House Marital status: Current occupational status: retired Do you think of yourself as: Straight/Heterosexual Current gender identity: Male Physical Exam 2 Const: COMMON NORMALS: negative for patient oriented x3 and negative for healthy appearing HENMT: COMMON NORMALS: normocephalic; oral mucous membranes not moist (Dry mucous membrane) HEAD & SCALP: n ormocephalic Chest: CHEST: Yes Symmetrical chest wall rise Resp: COMMON NORMALS: negative for normal respiratory effort (Tachypnea) Cardio: COMMON NORMALS: regular rate; negative for regular rhythm (Tachycardia) RATE: regular rate RHYTHM: a bnormal rhythm (Tachycardia) GI: COMMON NORMALS: Normal to inspection, nondistended, normoactive bowel sounds present and Soft to palpation PALPATION: Yes Soft to palpation Neuro: COMMON NORMALS: negative for patient oriented x3 Skin: COMMON NORMALS: no rashes or lesions noted, no wounds, turgor normal and no jaundice GENERAL SKIN EXAM: no rashes or lesions noted and turgor normal Course 2 Vital Signs: Vital signs: Vital Signs Temperature 98.7 F 12/23/24 04:46 Pulse Rate 91 12/23/24 08:45 Respiratory Rate 14 12/23/24 09:02 Blood Pressure 120/74 12/23/24 09:00 Pulse Oximetry 95 12/23/24 09:02 Oxygen Delivery Me thod Mechanical Ventil ation 12/23/24 08:32 Fraction of Inspir ed Oxygen 50 12/23/24 09:02 MDM - SOB/Dyspnea Medical Decision Making 74-year-old male long term patient with multiple medical problems and with concerns of decreased level of consciousness and respiratory distress. I suspect the patient is likely hypercarbic. Will place him on BiPAP and begin a standard workup. Twelve-lead EKG is obtained and reveals a slight sinus tachycardia but no obvious ST elevation or arrhythmia. Chest x-ray routine labs consideration of endotracheal intubation will be undertaken I will get a blood gas to see where we are at first. Lab Data 12/23/24 04:55 12/23/24 04:55 Labs/Radiology: Radiology Impressions Chest X-Ray 12/23/24 07:17 IMPRESSION: 1. Endotracheal tube with tip terminating approximately 4.5 cm from the lluvia. Enteric tube with side port visualized at the left upper quadrant. 2. Unchanged pulmonary exam to include pulmonary edema and bilateral dense perihilar opacities. Laboratory Results WBC 10.14 10^3/uL (3.29-11.43) 12/23/24 04:55 RBC 4.64 10^6/uL (3.85-5.65) 12/23/24 04:55 Hgb 13.30 g/dL (11.27-16.99) 12/23/24 04:55 Hct 47.3 % (37-53) 12/23/24 04:55 MCV 101.9 fl (82-101) H 12/23/24 04:55 MCH 28.7 pg (27-33) 12/23/24 04:55 MCHC 28.1 g/dL (30-55) L 12/23/24 04:55 RDW 12.7 % (12.1-15.1) 12/23/24 04:55 Plt Count 135 10^3/cmm (157-399) L 12/23/24 04:55 MPV 10.9 fL (7.4-10.4) H 12/23/24 04:55 Neut % (Auto) 75.7 % 12/23/24 04:55 Lymph % (Auto) 12.5 % 12/23/24 04:55 [place] % (Auto) 8.7 % 12/23/24 04:55 Eos % (Auto) 1.3 % 12/23/24 04:55 Baso % (Auto) 0.4 % 12/23/24 04:55 Neut # (Auto) 7.68 10^3/uL (1.8-7.7) 12/23/24 04:55 Lymph # (Auto) 1.3 10^3/uL (0.8-4.8) 12/23/24 04:55 [place] # (Auto) 0.9 10^3/uL (0.2-0.9) 12/23/24 04:55 Eos # (Auto) 0.1 10^3/uL (0.0-0.8) 12/23/24 04:55 Baso # (Auto) 0.0 10^3/uL (0.0-0.1) 12/23/24 04:55 Nucleated RBC % (auto) 0 % 12/23/24 04:55 Nucleated RBCs # 0.0 /100WBC 12/23/24 04:55 D-Dimer 0.53 ug/mLFEU (0-0.59) 12/23/24 04:55 Specimen Type Arterial 12/23/24 07:25 Sample Site Radial, left 12/23/24 07:25 ABG pH 7.41 (7.35-7.45) 12/23/24 07:25 ABG pCO2 51.1 mmHg (35-45) H 12/23/24 07:25 ABG pO2 78.5 mmHg (80.0-100.0) L 12/23/24 07:25 ABG PO2/FiO2 Ratio 112 12/23/24 07:25 ABG HCO3 32.5 mmol/L (22-26) H 12/23/24 07:25 ABG O2 Saturation 96.2 12/23/24 07:25 ABG Base Excess 6.5 mmol/L (-2.0-2.0) H 12/23/24 07:25 Drake Test Pos 12/23/24 07:25 A-a O2 Gradient 47.0 mmHg (5-10) H 12/23/24 07:25 Hematocrit 40.9 % (42-52) L 12/23/24 07:25 Hgb O2 Saturation 94.8 % (95-100) L 12/23/24 07:25 Carboxyhemoglobin 0.4 %THgb (0.4-20.1) 12/23/24 07:25 Methemoglobin 1.0 % (0.4-1.5) 12/23/24 07:25 Total Hemoglobin 13.4 g/dL (14-18) L 12/23/24 07:25 Sodium 139.0 mmol/L (131-143) 12/23/24 07:25 Potassium 4.8 mmol/L (3.5-5.0) 12/23/24 07:25 Glucose 202.0 mg/dL (70-115) H 12/23/24 07:25 Ionized Calcium 1.2 mmol/L (1.1-1.4) 12/23/24 07:25 O2 Delivery Device Vent 12/23/24 07:25 FiO2 70.0 % 12/23/24 07:25 Tidal Volume 0.50 12/23/24 06:09 PEEP 10.0 cmH20 12/23/24 06:09 Nurse Anesthetist ID Cak 12/23/24 07:25 Sodium 139 mmol/L (136-145) 12/23/24 04:55 Potassium 4.7 mmol/L (3.5-5.1) 12/23/24 04:55 Chloride 98 mmol/L (98-107) 12/23/24 04:55 Carbon Dioxide 35 mmol/L (22-29) H 12/23/24 04:55 Anion Gap 10.7 (5-19) 12/23/24 04:55 BUN 18 mg/dL (8-23) 12/23/24 04:55 Creatinine 0.7 mg/dL (0.7-1.2) 12/23/24 04:55 GFR Calculation Not Reportable 12/23/24 04:55 Glucose 224 mg/dL (65-115) H 12/23/24 04:55 POC Glucose 172 mg/dL (70-110) H 12/23/24 06:22 Calculated Osmolality 297 mOsm/kg (285-295) H 12/23/24 04:55 Lactic Acid 0.7 mmol/L (0.5-2.2) 12/23/24 04:55 Calcium 9.0 mg/dL (8.5-10.5) 12/23/24 04:55 Total Bilirubin 0.2 mg/dL (0.15-1.2) 12/23/24 04:55 AST 18 U/L (0-40) 12/23/24 04:55 ALT 13 U/L (0-41) 12/23/24 04:55 Alkaline Phosphatase 59 U/L (40-130) 12/23/24 04:55 Troponin T Baseline 16 ng/L (0-15) H 12/23/24 04:55 Troponin T 120 Minute 18.83 ng/L (0-15) H 12/23/24 07:08 Delta Troponin T 2.83 ABS# (0-10) 12/23/24 07:08 NT-Pro-B Natriuret Pep 147 pg/mL (0-125) H 12/23/24 04:55 Total Protein 7.3 g/dL (6.6-8.7) 12/23/24 04:55 Albumin 4.1 g/dL (3.5-5.2) 12/23/24 04:55 Globulin 3.2 g/dL (1.3-4.6) 12/23/24 04:55 Procalcitonin 0.10 ng/mL (0-0.5) 12/23/24 07:08 Urine Color Yellow (Yellow) 12/23/24 06:55 Urine Appearance Clear (CLEAR) 12/23/24 06:55 Urine pH 5.5 (5-7) 12/23/24 06:55 Ur Specific [place] 1.030 (1.005-1.030) 12/23/24 06:55 Urine Protein Trace (Negative) A 12/23/24 06:55 Urine Glucose (UA) 2+ (Normal) H 12/23/24 06:55 Urine Ketones Trace (Negative) 12/23/24 06:55 Urine Blood Negative (Negative) 12/23/24 06:55 Urine Nitrate Negative (Negative) 12/23/24 06:55 Urine Bilirubin Negative (Negative) 12/23/24 06:55 Urine Urobilinogen 0.2 mg/dL (Negative) 12/23/24 06:55 Ur Leukocyte Esterase Negative (Negative) 12/23/24 06:55 Urine RBC 0-2 /hpf (0-2) 12/23/24 06:55 Urine WBC 0-5 /hpf (0-5) 12/23/24 06:55 Ur Squamous Epith Cells 0-5 /hpf (0-5) 12/23/24 06:55 Amorphous Sediment Not Reportable 12/23/24 06:55 Urine Bacteria None seen /hpf (NONE) 12/23/24 06:55 Hyaline Casts 0.40 /lpf 12/23/24 06:55 Coronavirus (PCR) Negative (Negative) 12/23/24 06:55 Influenza A (PCR) Negative (Negative) 12/23/24 06:55 Influenza Type B (PCR) Negative (Negative) 12/23/24 06:55 RSV (PCR) Positive (Negative) A 12/23/24 06:55 XR interpretation done by ED provider, pending radiology final review Discharge Plan Discharge Patient Disposition: Admitted As Inpatient Admit Provider: Oscar Babin Clinical Impression: Acute on chronic respiratory failure with hypoxia and hypercapnia Condition: Stable Sign Out Sign Out Data: Patient Sign Out occurred on 12/23/24 at 06:13. Patient's care was discussed, and care was transferred from Ifeanyi Jin DO to Nabor Copeland DO. Coding Level of Care Code ED [employer] [facility] Fwd Documented by User: Nabor Copeland DO 12/23/24 09:18 HPI - SOB/Dyspnea 2 General: Chief Complaint: Shortness of Breath/Dyspnea Stated Complaint: RESP. DISTRESS Time Seen by Provider: 12/23/24 04:45 Related Data Home Medications Medication Instructions Recorded Confirmed calcium carbonate (Calcium 600) 600 mg PO DAILY 12/01/19 12/23/24 lancets 33 gauge (OneTouch Delica #100 ea 12/01/19 12/23/24 Lancets) dimiviey-ijg-euhrm 200 mcg-lycop 1 tab PO DAILY 12/01/19 12/23/24 175 mcg-lutei 250 mcg-herb 178 tablet (Oliver Multivitamin For Men) diclofenac sodium 1 % topical gel 4 g topical Q8H PRN Pain 11/07/23 12/23/24 losartan 25 mg tablet 50 mg PO DAILY 09/18/24 12/23/24 acetaminophen 325 mg tablet 650 mg PO Q4H PRN Pain 12/23/24 12/23/24 aluminum-mag hydroxide-simethicone 30 ml PO Q5W PRN Indigestion 12/23/24 12/23/24 200 mg-200 mg-20 mg/5 mL oral susp aspirin 81 mg tablet,delayed 81 mg PO DAILY 12/23/24 12/23/24 release bisacodyl 10 mg rectal suppository 10 mg WV DAILY PRN Constipation 12/23/24 12/23/24 (Dulcolax (bisacodyl)) glipizide 5 mg tablet 5 mg PO DAILY 12/23/24 12/23/24 loperamide 2 mg tablet (Imodium 2 mg PO Q24H PRN loose stools 12/23/24 12/23/24 A-D) magnesium hydroxide 400 mg/5 mL 30 ml PO DAILY PRN Constipation 12/23/24 12/23/24 oral suspension (Milk of Magnesia) melatonin 3 mg tablet 3 mg PO BEDTIME 12/23/24 12/23/24 menthol 2.7 mg lozenges (Cough 2.7 mg mucous membrane Q2H PRN 12/23/24 12/23/24 Drops) Cough polyvinyl alcohol 1.4 % eye drops 2 drp ophthalmic (eye) TID 12/23/24 12/23/24 (Artificial Tears (polyvinyl alcohol)) sertraline 25 mg tablet 25 mg PO BEDTIME 12/23/24 12/23/24 sodium phosphates 19 gram-7 118 ml WV DAILY PRN Constipation 12/23/24 12/23/24 gram/118 mL enema (Fleet Enema) tizanidine 4 mg tablet 4 mg PO Q8H PRN Pain 12/23/24 12/23/24 Previous Rx's Medication Instructions Recorded lancets 30 gauge (Ultra Fine #100 ea 07/31/20 Lancets) blood sugar diagnostic #50 ea 04/28/22 oxygen concentrator w/ portable #1 ea 02/16/23 Hospital Bed #1 ea 02/18/23 clopidogrel 75 mg tablet 75 mg PO DAILY #30 tabs 09/23/23 diltiazem HCl 30 mg tablet 30 mg PO BID #60 tabs 09/23/23 (Cardizem) empagliflozin 25 mg tablet 25 mg PO QAM #30 tabs 09/23/23 (Jardiance) evolocumab 140 mg/mL subcutaneous 140 mg SUBCUT Q14D #2 mL 09/23/23 pen injector (Repatha SureClick) fluticasone propionate 50 1 spray intranasal Q12H Nasal 09/23/23 mcg/actuation nasal Congestion #15.8 mL spray,suspension (Flonase Allergy Relief) levothyroxine 100 mcg tablet 100 mcg PO DAILY #30 tabs 09/23/23 metoprolol succinate 25 mg 25 mg PO DAILY #30 tabs 09/23/23 tablet,extended release 24 hr (Toprol XL) tamsulosin 0.4 mg capsule (Flomax) 0.4 mg PO DAILY #30 caps 09/23/23 tizanidine 2 mg tablet 2 mg PO BEDTIME Muscle Spasm #30 09/23/23 tabs topiramate 50 mg tablet (Topamax) 50 mg PO BID #60 tabs 09/23/23 Allergies Allergy/AdvReac Type Severity Reaction Status Date / Time No Known Allergies Allergy Verified 09/23/23 13:00 [facility] ED 2 [facility]: Medical History (Updated 12/23/24 @ 09:17 by Nabor Copeland DO) History of PFTs 2019 restrictive ventilatory defect, mil decrease DLCO COVID-19 10/2021 Hypoxia Mixed anxiety depressive disorder Essential (primary) hypertension Aneurysm of unspecified site Vitamin D insufficiency Cellulitis of left eyelid O2 dependent Platelets decreased Left sciatic nerve pain Type 2 diabetes mellitus with hyperglycemia Atrial tachycardia Shortness of breath Osteoarthritis of both knees Heartburn Helminthiasis, unspecified ASHD (arteriosclerotic heart disease) Surgical History (Updated 09/18/24 @ 23:22 by Naomi Gutiérrez MD) S/P PTCA (percutaneous transluminal coronary angioplasty) LAD H/O eye surgery Left Family History Sister Cancer Other CAD (coronary artery disease) Diabetes Stroke Social History Smoking and tobacco/nicotine status: former use of tobacco/nicotine Second hand smoke exposure: No Alcohol intake: former Substance/Drug Use: never Adopted: No Caregiver/support person: No Lives independently: Yes Household members: spouse Housing: House Marital status: Current occupational status: retired Do you think of yourself as: Straight/Heterosexual Current gender identity: Male Procedures Intubation sedative: Etomidate Mg Given: 20 paralytic: Succinylcholine Mg Given: 100 Laryngoscope: fiber optic video scope ET Tube Size: 8.5 ET Tube Uncuffed: Yes Tube Secured Depth (cm): 23 Tube Secured Location: teeth Tube Placement Confirmation: visualized tube passing through cords, equal breath sounds bilaterally, no breath sounds over epigastrium and confirmation by capnometry Patient Tolerated Procedure: well Course 2 Vital Signs: Vital signs: Vital Signs Temperature 98.7 F 12/23/24 04:46 Pulse Rate 91 12/23/24 08:45 Respiratory Rate 14 12/23/24 09:02 Blood Pressure 120/74 12/23/24 09:00 Pulse Oximetry 95 12/23/24 09:02 Oxygen Delivery Me thod Mechanical Ventil ation 12/23/24 08:32 Fraction of Inspir ed Oxygen 50 12/23/24 09:02 MDM - SOB/Dyspnea Medical Decision Making 74-year-old male long term patient with multiple medical problems and with concerns of decreased level of consciousness and respiratory distress. I suspect the patient is likely hypercarbic. Will place him on BiPAP and begin a standard workup. Twelve-lead EKG is obtained and reveals a slight sinus tachycardia but no obvious ST elevation or arrhythmia. Chest x-ray routine labs consideration of endotracheal intubation will be undertaken I will get a blood gas to see where we are at first. Care assumed at change of shift. Repeat blood gas pH still 7.2 pCO2 90 patient is completely obtunded has no muscle tone. Elected to intubate verified on the chart patient is still listed as a full code. Patient intubated without difficulty. Will recheck blood gas in 1 hour. Recheck patient has significant improvement in his CO2 pCO2 is down to 51-hour after a ventilator. He is currently on Versed and fentanyl. Will admit for acute hypercapnic respiratory failure empiric antibiotics discussed with hospitalist orders written Medical Records I reviewed the patient's medical records. Lab Data I reviewed the patient's lab results. 12/23/24 04:55 12/23/24 04:55 Labs/Radiology: Radiology Impressions Chest X-Ray 12/23/24 07:17 IMPRESSION: 1. Endotracheal tube with tip terminating approximately 4.5 cm from the lluvia. Enteric tube with side port visualized at the left upper quadrant. 2. Unchanged pulmonary exam to include pulmonary edema and bilateral dense perihilar opacities. Laboratory Results WBC 10.14 10^3/uL (3.29-11.43) 12/23/24 04:55 RBC 4.64 10^6/uL (3.85-5.65) 12/23/24 04:55 Hgb 13.30 g/dL (11.27-16.99) 12/23/24 04:55 Hct 47.3 % (37-53) 12/23/24 04:55 MCV 101.9 fl (82-101) H 12/23/24 04:55 MCH 28.7 pg (27-33) 12/23/24 04:55 MCHC 28.1 g/dL (30-55) L 12/23/24 04:55 RDW 12.7 % (12.1-15.1) 12/23/24 04:55 Plt Count 135 10^3/cmm (157-399) L 12/23/24 04:55 MPV 10.9 fL (7.4-10.4) H 12/23/24 04:55 Neut % (Auto) 75.7 % 12/23/24 04:55 Lymph % (Auto) 12.5 % 12/23/24 04:55 [place] % (Auto) 8.7 % 12/23/24 04:55 Eos % (Auto) 1.3 % 12/23/24 04:55 Baso % (Auto) 0.4 % 12/23/24 04:55 Neut # (Auto) 7.68 10^3/uL (1.8-7.7) 12/23/24 04:55 Lymph # (Auto) 1.3 10^3/uL (0.8-4.8) 12/23/24 04:55 [place] # (Auto) 0.9 10^3/uL (0.2-0.9) 12/23/24 04:55 Eos # (Auto) 0.1 10^3/uL (0.0-0.8) 12/23/24 04:55 Baso # (Auto) 0.0 10^3/uL (0.0-0.1) 12/23/24 04:55 Nucleated RBC % (auto) 0 % 12/23/24 04:55 Nucleated RBCs # 0.0 /100WBC 12/23/24 04:55 D-Dimer 0.53 ug/mLFEU (0-0.59) 12/23/24 04:55 Specimen Type Arterial 12/23/24 07:25 Sample Site Radial, left 12/23/24 07:25 ABG pH 7.41 (7.35-7.45) 12/23/24 07:25 ABG pCO2 51.1 mmHg (35-45) H 12/23/24 07:25 ABG pO2 78.5 mmHg (80.0-100.0) L 12/23/24 07:25 ABG PO2/FiO2 Ratio 112 12/23/24 07:25 ABG HCO3 32.5 mmol/L (22-26) H 12/23/24 07:25 ABG O2 Saturation 96.2 12/23/24 07:25 ABG Base Excess 6.5 mmol/L (-2.0-2.0) H 12/23/24 07:25 Drake Test Pos 12/23/24 07:25 A-a O2 Gradient 47.0 mmHg (5-10) H 12/23/24 07:25 Hematocrit 40.9 % (42-52) L 12/23/24 07:25 Hgb O2 Saturation 94.8 % (95-100) L 12/23/24 07:25 Carboxyhemoglobin 0.4 %THgb (0.4-20.1) 12/23/24 07:25 Methemoglobin 1.0 % (0.4-1.5) 12/23/24 07:25 Total Hemoglobin 13.4 g/dL (14-18) L 12/23/24 07:25 Sodium 139.0 mmol/L (131-143) 12/23/24 07:25 Potassium 4.8 mmol/L (3.5-5.0) 12/23/24 07:25 Glucose 202.0 mg/dL (70-115) H 12/23/24 07:25 Ionized Calcium 1.2 mmol/L (1.1-1.4) 12/23/24 07:25 O2 Delivery Device Vent 12/23/24 07:25 FiO2 70.0 % 12/23/24 07:25 Tidal Volume 0.50 12/23/24 06:09 PEEP 10.0 cmH20 12/23/24 06:09 Nurse Anesthetist ID Cak 12/23/24 07:25 Sodium 139 mmol/L (136-145) 12/23/24 04:55 Potassium 4.7 mmol/L (3.5-5.1) 12/23/24 04:55 Chloride 98 mmol/L (98-107) 12/23/24 04:55 Carbon Dioxide 35 mmol/L (22-29) H 12/23/24 04:55 Anion Gap 10.7 (5-19) 12/23/24 04:55 BUN 18 mg/dL (8-23) 12/23/24 04:55 Creatinine 0.7 mg/dL (0.7-1.2) 12/23/24 04:55 GFR Calculation Not Reportable 12/23/24 04:55 Glucose 224 mg/dL (65-115) H 12/23/24 04:55 POC Glucose 172 mg/dL (70-110) H 12/23/24 06:22 Calculated Osmolality 297 mOsm/kg (285-295) H 12/23/24 04:55 Lactic Acid 0.7 mmol/L (0.5-2.2) 12/23/24 04:55 Calcium 9.0 mg/dL (8.5-10.5) 12/23/24 04:55 Total Bilirubin 0.2 mg/dL (0.15-1.2) 12/23/24 04:55 AST 18 U/L (0-40) 12/23/24 04:55 ALT 13 U/L (0-41) 12/23/24 04:55 Alkaline Phosphatase 59 U/L (40-130) 12/23/24 04:55 Troponin T Baseline 16 ng/L (0-15) H 12/23/24 04:55 Troponin T 120 Minute 18.83 ng/L (0-15) H 12/23/24 07:08 Delta Troponin T 2.83 ABS# (0-10) 12/23/24 07:08 NT-Pro-B Natriuret Pep 147 pg/mL (0-125) H 12/23/24 04:55 Total Protein 7.3 g/dL (6.6-8.7) 12/23/24 04:55 Albumin 4.1 g/dL (3.5-5.2) 12/23/24 04:55 Globulin 3.2 g/dL (1.3-4.6) 12/23/24 04:55 Procalcitonin 0.10 ng/mL (0-0.5) 12/23/24 07:08 Urine Color Yellow (Yellow) 12/23/24 06:55 Urine Appearance Clear (CLEAR) 12/23/24 06:55 Urine pH 5.5 (5-7) 12/23/24 06:55 Ur Specific [place] 1.030 (1.005-1.030) 12/23/24 06:55 Urine Protein Trace (Negative) A 12/23/24 06:55 Urine Glucose (UA) 2+ (Normal) H 12/23/24 06:55 Urine Ketones Trace (Negative) 12/23/24 06:55 Urine Blood Negative (Negative) 12/23/24 06:55 Urine Nitrate Negative (Negative) 12/23/24 06:55 Urine Bilirubin Negative (Negative) 12/23/24 06:55 Urine Urobilinogen 0.2 mg/dL (Negative) 12/23/24 06:55 Ur Leukocyte Esterase Negative (Negative) 12/23/24 06:55 Urine RBC 0-2 /hpf (0-2) 12/23/24 06:55 Urine WBC 0-5 /hpf (0-5) 12/23/24 06:55 Ur Squamous Epith Cells 0-5 /hpf (0-5) 12/23/24 06:55 Amorphous Sediment Not Reportable 12/23/24 06:55 Urine Bacteria None seen /hpf (NONE) 12/23/24 06:55 Hyaline Casts 0.40 /lpf 12/23/24 06:55 Coronavirus (PCR) Negative (Negative) 12/23/24 06:55 Influenza A (PCR) Negative (Negative) 12/23/24 06:55 Influenza Type B (PCR) Negative (Negative) 12/23/24 06:55 RSV (PCR) Positive (Negative) A 12/23/24 06:55 All radiology interpretation(s) finalized by discharge Discharge Plan Discharge Patient Disposition: Admitted As Inpatient Admit Provider: Oscar Babin Clinical Impression: Acute on chronic respiratory failure with hypoxia and hypercapnia Condition: Stable Sign Out Sign Out Data: Patient Sign Out occurred on 12/23/24 at 06:13. Patient's care was discussed, and care was transferred from Ifeanyi Jin DO to Nabor Copeland DO. Coding Level of Care Code ED [employer] for Jonathan Peña
--- NOTE | 2024-12-23 05:30 | XRR_ITS ---
PROCEDURE INFORMATION: Exam: XR Chest Exam date and time: 12/23/2024 5:33 AM Age: 74 years old Clinical indication: Prior surgery; Surgery date: 6+ months; Surgery type: Coronary stent; Patient HX: EMS arrival from longterm for resp distress. On bipap. ; Additional info: SOB TECHNIQUE: Imaging protocol: Radiologic exam of the chest. Views: 1 view. COMPARISON: CT chest w con* [id number] 09/18/2024 6:21 PM FINDINGS: Lungs: Hypoinflation with bronchovascular crowding. Bilateral interstitial prominence. Bilateral perihilar opacities, [id number]. Pleural spaces: Small bilateral pleural effusions. Heart/Mediastinum: Cardiac silhouette is not well visualized. Bones/joints: Unremarkable. XR/XR chest 1V portable [id number] IMPRESSION: Query cardiogenic pulmonary edema. Bilateral perihilar infectious process is also in the differential.
--- NOTE | 2024-12-23 05:31 | ECG_ITS ---
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 Measurements Intervals [place] Rate: 102 P: 36 MT: 183 QRS: 7 QRSD: 107 T: 41 QT: 346 QTc: 451 Interpretive Statements SINUS TACHYCARDIA Compared to ECG 09/18/2024 12:04:08 Sinus rhythm no longer present Sinus arrhythmia no longer present Left-axis deviation no longer present Intraventricular conduction delay no longer present ST (T wave) deviation no longer present Electronically Signed On 12-23-2024 23:05:20 SALES REPRESENTATIVE UN[employer]ORMS by Isacc Renee M.D. [id number]
[2024-12-23 05:32] LABS: Arterial Blood Gas Hematocrit 42.3 % (42-52); Base Excess ABG 1.1 mmol/L (-2.0-2.0); Blood Gas Allen Test Pos; Blood Gas Sample Site Radial, right; Blood Gas Sample Type Arterial; HCO3 ABG 33.3 mmol/L (22-26); Ionized Calcium Level - ABG 1.3 mmol/L (1.1-1.4); Methemoglobin 1.3 % (0.4-1.5); Oxygen Device BIPAP; Oxygen Saturation ABG 95.1; PO2 ABG 85.4 mmHg (80.0-100.0); PO2 FiO2 Ratio Arterial Blood 142; Potassium Level - ABG 4.4 mmol/L (3.5-5.0); Total Hemoglobin 13.8 g/dL (14-18)
[2024-12-23 05:33] LABS: ABG PCO2 98.6 mmHg (35-45); ABG PH Result 7.14 (7.35-7.45)
[2024-12-23 05:39] LABS: Basophils % 0.4 %; Eosinophils # 0.1 10^3/uL (0.0-0.8); Eosinophils % 1.3 %; Hematocrit 47.3 % (37-53); Lymphocytes # 1.3 10^3/uL (0.8-4.8); Lymphocytes % 12.5 %; Mean Corpuscular HGB Conc 28.1 g/dL (30-55); Mean Corpuscular Hemoglobin 28.7 pg (27-33); Mean Corpuscular Volume 101.9 fl (82-101); Mean Platelet Volume 10.9 fL (7.4-10.4); Monocytes # 0.9 10^3/uL (0.2-0.9); Monocytes % 8.7 %; Neutrophils # 7.68 10^3/uL (1.8-7.7); Neutrophils % 75.7 %; Nucleated Red Blood Cells % 0 %; Platelet Count 135 10^3/cmm (157-399); Red Blood Count 4.64 10^6/uL (3.85-5.65); Red Cell Distribution Width 12.7 % (12.1-15.1); White Blood Count 10.14 10^3/uL (3.29-11.43)
[2024-12-23 05:55] LABS: Troponin(5th) Baseline 16 ng/L (0-15)
[2024-12-23 05:56] LABS: Lactic Sepsis W/Reflex 0.7 mmol/L (0.5-2.2)
[2024-12-23 06:11] LABS: Alveolar-Arterial Oxygen Gradi 32.4 mmHg (5-10); Base Excess ABG 3.6 mmol/L (-2.0-2.0); Blood Gas Allen Test Pos; Blood Gas Sample Site Radial, right; Blood Gas Sample Type Arterial; HCO3 ABG 34.8 mmol/L (22-26); HGB O2 Sat 92.9 % (95-100); Ionized Calcium Level - ABG 1.3 mmol/L (1.1-1.4); Methemoglobin 0.5 % (0.4-1.5); Oxygen Device BIPAP; Oxygen Saturation ABG 94.4; PO2 ABG 76.8 mmHg (80.0-100.0); PO2 FiO2 Ratio Arterial Blood 128; Potassium Level - ABG 4.2 mmol/L (3.5-5.0); Total Hemoglobin 13.7 g/dL (14-18)
[2024-12-23 06:13] LABS: ABG PCO2 90.1 mmHg (35-45)
[2024-12-23 06:14] LABS: Alanine Aminotransferase 13 U/L (0-41); Albumin Level 4.1 g/dL (3.5-5.2); Alkaline Phosphatase 59 U/L (40-130); Blood Urea Nitrogen 18 mg/dL (8-23); Carbon Dioxide 35 mmol/L (22-29); Chloride 98 mmol/L (98-107); Globulin 3.2 g/dL (1.3-4.6); Glucose 224 mg/dL (65-115); NT Pro B Type Natriuretic Pept 147 pg/mL (0-125); Osmolality Calculated 297 mOsm/kg (285-295); Sodium 139 mmol/L (136-145); Total Bilirubin 0.2 mg/dL (0.15-1.2); Total Protein 7.3 g/dL (6.6-8.7)
[2024-12-23 06:17] LABS: Anion Gap 10.7 (5-19); Aspartate Amino Transferase 18 U/L (0-40); Potassium 4.7 mmol/L (3.5-5.1)
--- NOTE | 2024-12-23 06:26 | PC.NURSE ---
RSI 0628-- 20 Etomidate 0628 -- 100 succs 0629-- intubated, measured 23 at the teeth
[2024-12-23] MEDS: etomidate 2 mg/mL INJ SDV 10 mL 20 MG IVP (06:28)
[2024-12-23] MEDS: succinylcholine 20 mg/mL SDV 10mL 100 MG IVP (06:28)
[2024-12-23] MEDS: fentaNYL 1,000 MCG/100 ML BAG 2.5 MCG IV (06:35)
[2024-12-23] MEDS: midazolam hcl 100 MG/100 ML BAG IV (06:36)
--- NOTE | 2024-12-23 07:17 | XRR_ITS ---
PROCEDURE INFORMATION: Exam: XR Chest Exam date and time: 12/23/2024 7:12 AM Age: 74 years old Clinical indication: Device placement; Ng tube; Additional info: Postintubation: Et placement TECHNIQUE: Imaging protocol: Radiologic exam of the chest. Views: 1 view. COMPARISON: CR (CHEST, ) 12/23/2024 5:33 AM FINDINGS: Tubes, catheters and devices: Endotracheal tube with tip terminating approximately 4.5 cm from the lluvia. Enteric tube with side port visualized at the left upper quadrant. Lungs: Hypoinflation with bronchovascular crowding. Similar appearance of bilateral interstitial prominence and bilateral dense perihilar opacities, [id number]-chndqyt-hfgr-left. Pleural spaces: Small bilateral pleural effusions. Heart/Mediastinum: Cardiac silhouette is not well visualized. Bones/joints: Unremarkable. XR/XR chest 1V portable [id number] IMPRESSION: 1. Endotracheal tube with tip terminating approximately 4.5 cm from the lluvia. Enteric tube with side port visualized at the left upper quadrant. 2. Unchanged pulmonary exam to include pulmonary edema and bilateral dense perihilar opacities.
[2024-12-23 07:34] LABS: Glucose Point of Care 172 mg/dL (70-110)
[2024-12-23 07:36] LABS: ABG PCO2 51.1 mmHg (35-45); ABG PH Result 7.41 (7.35-7.45); Arterial Blood Gas Hematocrit 40.9 % (42-52); Base Excess ABG 6.5 mmol/L (-2.0-2.0); Blood Gas Allen Test Pos; Blood Gas Operator Identificat CAK; Blood Gas Sample Site Radial, left; Blood Gas Sample Type Arterial; Carboxyhemoglobin 0.4 %THgb (0.4-20.1); HCO3 ABG 32.5 mmol/L (22-26); HGB O2 Sat 94.8 % (95-100); Ionized Calcium Level - ABG 1.2 mmol/L (1.1-1.4); Oxygen Device VENT; Oxygen Saturation ABG 96.2; PO2 ABG 78.5 mmHg (80.0-100.0); PO2 FiO2 Ratio Arterial Blood 112; Potassium Level - ABG 4.8 mmol/L (3.5-5.0); Total Hemoglobin 13.4 g/dL (14-18)
[2024-12-23 07:38] LABS: Troponin 5 2HR 18.83 ng/L (0-15); Troponin 5 2HR Delta 2.83 ABS# (0-10)
--- NOTE | 2024-12-23 07:38 | ECG_ITS ---
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 Measurements Intervals [place] Rate: 88 P: 35 GA: 197 QRS: 8 QRSD: 107 T: 32 QT: 325 QTc: 394 Interpretive Statements SINUS RHYTHM INCOMPLETE RIGHT BUNDLE BRANCH BLOCK [90+ ms QRS DURATION, TERMINAL R IN V1/V2, 40+ ms S IN I/aVL/V4/V5/V6] Compared to ECG 12/23/2024 05:01:48 Incomplete right bundle-branch block now present Sinus tachycardia no longer present Electronically Signed On 12-23-2024 23:24:12 TOBACCO BALER by Isacc Renee M.D. [id number]
[2024-12-23 08:03] LABS: Covid PCR NEGATIVE (Negative); Influenza A NEGATIVE (Negative); Influenza B NEGATIVE (Negative)
--- NOTE | 2024-12-23 08:05 | CTR_ITS ---
PROCEDURE INFORMATION: Exam: CT Chest Without Contrast; Diagnostic Exam date and time: 12/23/2024 8:47 AM Age: 74 years old Clinical indication: Shortness of breath; Additional info: Copd/pna TECHNIQUE: Imaging protocol: Diagnostic computed tomography of the chest without contrast. Radiation optimization: All CT scans at this facility use at least one of these dose optimization techniques: automated exposure control; mA and/or kV adjustment per patient size (includes targeted exams where dose is matched to clinical indication); or iterative reconstruction. COMPARISON: CT chest w con* [id number] 09/18/2024 6:21 PM RADIATION DOSE METRICS: Total DLP (mGy-cm): 577.14 FINDINGS: Tubes, catheters and devices: Enteric tube with tip terminating approximately 5 cm from the lluvia. Enteric tube with side port at the left upper quadrant. Enteric tube tip not visualized. Lungs: Patchy ground-glass opacity of the left upper lobe. Bilateral upper lobe calcified granulomas. Small right pleural effusion. Dense consolidation with air bronchograms within the posterior right upper lobe, right middle lobe and right lower lobe. Scant left pleural effusion with atelectasis/consolidation, intervally decreased from prior with air bronchograms. Pleural spaces: See above. Heart: Cardiomegaly. Coronary arteries: Moderate to severe coronary artery calcification. Lymph nodes: Bilateral enlarged hilar and mediastinal lymph nodes which are mostly calcified suggestive of prior granulomatous disease. Vasculature: Pulmonary artery measures 3.7 cm. 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 Spleen: Visualized liver and spleen are grossly unremarkable. Bones/joints: No acute fracture. Soft tissues: Unremarkable. CT/CT chest con [id number] IMPRESSION: Multifocal pneumonia, tzday-[id number]-codc-left.
[2024-12-23 08:10] LABS: Respiratory Syncytial Virus Ce POSITIVE (Negative)
[2024-12-23 08:13] LABS: Bilirubin Urine Negative (Negative); Blood Urine Negative (Negative); Glucose Urine UA 2+ (Normal); Ketones Urine Trace (Negative); Leukocyte Esterase Urine Negative (Negative); Nitrate Urine Negative (Negative); Protein Urine Trace (Negative); Urine Appearance Clear (CLEAR); Urine Color Yellow (Yellow); Urobilinogen Urine 0.2 mg/dL (Negative); pH Urine 5.5 (5-7)
[2024-12-23 08:16] LABS: Bacteria Urine None Seen /hpf; RBC Urine 0-2 /hpf (0-2); Squamous Epithelial Cell Urine 0-5 /hpf (0-5); WBC Urine 0-5 /hpf (0-5)
--- NOTE | 2024-12-23 08:16 | PC.PHAR ---
Called [facility] to verify a couple meds-Tizanidine 2mg is scheduled daily, Tizanidine 4mg is Prn. Jonas shows to inject daily on JAN-nurse states it is every 14 days and should have been given yesterday 12/22/24. 5 meds dc'd from list are: Famotidine, Fenofibrate, Duloxetine, Furosemide and Potassium.
[2024-12-23] MEDS: ipratropium-albuterol 3 mL Neb INHALATION (08:30)
[2024-12-23 08:39] LABS: D Dimer 0.53 ug/mLFEU (0-0.59)
[2024-12-23] MEDS: dexamethasone 10 mg/mL INJ IM (08:40)
[2024-12-23 08:50] LABS: Lactic Sepsis W/Reflex 2.3 mmol/L (0.5-2.2)
--- NOTE | 2024-12-23 09:36 | USCV_ITS ---
Sathish Caballero Age: 74 Gender: M : 1950 Exam Date: 12/23/2024 11:10 Ordering Phys: Oscar Babin MD Technologist: WYATT Exam Location: [facility] [place] Indication: chf BP: 90 / 57 HR: 99 Rhythm: Sinus Technical Quality: Adequate MEASUREMENTS (Male / Female) Normal Values 2D ECHO LV Diastolic Diameter PLAX 3.8 cm 4.2 - 5.9 / 3.9 - 5.3 cm IVS Diastolic Thickness 0.8 cm 0.6 - 1.0 / 0.6 - 0.9 cm IVS Systolic Thickness 1.2 cm LVPW Diastolic Thickness 1.5 cm 0.6 - 1.0 / 0.6 - 0.9 cm LVPW Systolic Thickness 1.5 cm LVOT Diameter 2.2 cm LV Ejection Fraction 2D Teich 56.6 % LV Ejection Fraction MOD 4C 66.7 % LV Ejection Fraction MOD 2C 67.5 % LV Ejection Fraction 2C AL 67.1 % LA Diameter 3.1 cm RA Systolic Volume 4C AL 21.1 ml RA Systolic Volume 4C MOD 21.0 ml LA Sys Volume AL 35.8 cm cubed LA Sys Volume Index AL 15.5 cm cubed/m squared Aorta at Sinotubular Diameter 2.7 cm IVC Diameter 1.9 cm M-MODE LA Ao Ratio MM 0.8 AV Cusp Separation MM 1.9 cm DOPPLER AV Peak Velocity 147.0 cm/s LVOT Peak Velocity 135.0 cm/s AV Area Cont Eq vti 3.0 cm squared AV Area Cont Eq pk 3.4 cm squared MV Peak Velocity 86.0 cm/s MV Area PHT 6.5 cm squared Mitral E to A Ratio 0.6 TV Peak Velocity 140.5 cm/s TR Peak Velocity 148.0 cm/s TR Peak Gradient 8.8 mmHg TR Mean Velocity 119.0 cm/s TR Mean Gradient 5.9 mmHg TR Velocity Time Integral 28.5 cm PV Peak Velocity 86.0 cm/s RV Ejection Time 0.3 s FINDINGS Left Ventricle Technically limited quality echocardiogram because of poor ultrasonic windows. LV systolic function is normal with EF of 60 to 65%. No regional wall motion abnormalities are seen. Grade 1 diastolic dysfunction Right Ventricle Grossly appears hypokinetic. Right Atrium Normal in size Left Atrium Normal in size Mitral Valve Structurally normal mitral valve. Mild mitral regurgitation. Aortic Valve Structurally normal aortic valve. No significant stenosis or regurgitation Tricuspid Valve Mild tricuspid regurgitation. Pulmonary artery systolic pressure is normal. Pulmonic Valve Not well visualized Pericardium Normal Aorta Normal in size IVC Appears to be normal CONCLUSIONS Technically limited quality echocardiogram because of poor ultrasonic windows. LV systolic function is normal with EF of 60 to 65%. Grade 1 diastolic dysfunction. Right ventricle appears grossly hypokinetic. Mild mitral regurgitation. Mild tricuspid regurgitation. Isacc Renee MD (Electronically Signed) Final Date: 23 December 2024 12:29 S
[2024-12-23] MEDS: ipratropium 0.5 mg/2.5 mL Neb INHALATION ×3 (09:52→20:22)
[2024-12-23] MEDS: levalbuterol 0.63 mg/3 mL Neb INHALATION ×3 (09:52→20:22)
[2024-12-23] MEDS: budesonide 0.5 mg/2 mL Neb INHALATION ×2 (09:53→20:22)
[2024-12-23 09:59] LABS: Estmated Average Glucose 146; Hemoglobin A1C 6.7 % (4.0-6.0)
[2024-12-23] MEDS: pantoprazole 40 mg SDV IVP (10:03)
[2024-12-23] MEDS: fenofibrate 145 mg Tablet PO (10:04)
[2024-12-23] MEDS: duloxetine 60 mg Capsule PO ×2 (10:04→17:37)
[2024-12-23] MEDS: tamsulosin 0.4 mg Capsule PO (10:04)
[2024-12-23] MEDS: heparin 5,000 unit/mL INJ 1 mL 5000 UNIT SUBCUT ×2 (10:04→17:38)
[2024-12-23] MEDS: dilTIAZem 30 mg Tablet PO (10:04)
[2024-12-23] MEDS: docusate sodium 100 mg Capsule PO ×2 (10:04→17:37)
[2024-12-23] MEDS: levothyroxine 100 mcg Tablet PO (10:04)
[2024-12-23] MEDS: piperacillin-tazobactam 3.375 GM in sodium chloride 0.9% (plus) 50 ML IV ×2 (10:04→15:50)
[2024-12-23] MEDS: clopidogrel 75 mg Tablet PO (10:04)
[2024-12-23] MEDS: azithromycin 250 mg Tablet 500 MG PO (10:05)
[2024-12-23 10:18] LABS: Reflex Lactate Order REFLEX LACTIC ORDERD
[2024-12-23 10:22] LABS: Iron 23 ug/dL (59-158); Thyroid Stimulating Hormone 1.43 uIU/mL (0.27-4.20); Vitamin B12 525 pg/mL (232-1245)
[2024-12-23 10:23] LABS: Percent Saturation 6.4 % (20-50); Total Iron Binding Capacity 359 mcg/dl; Unsaturated Iron Binding 336 ug/dL (112-347)
[2024-12-23] MEDS: topiramate 100 mg Tablet 50 MG PO ×2 (10:24→17:37)
[2024-12-23] MEDS: vancomycin 3,000 MG/600 ML PIGGYBACK 200 MG IV (10:25)
[2024-12-23 11:16] LABS: Troponin 5 6HR 22.01 ng/L (0-15); Troponin 5 6HR Delta 6.01 ng/L (0-12)
--- NOTE | 2024-12-23 11:31 | ECG_ITS ---
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 Measurements Intervals [place] Rate: 97 P: 28 NM: 172 QRS: -3 QRSD: 105 T: 34 QT: 312 QTc: 397 Interpretive Statements SINUS RHYTHM INCOMPLETE RIGHT BUNDLE BRANCH BLOCK [90+ ms QRS DURATION, TERMINAL R IN V1/V2, 40+ ms S IN I/aVL/V4/V5/V6] Compared to ECG 12/23/2024 07:38:15 No significant changes Electronically Signed On 12-23-2024 23:22:15 TRACTOR TRAILER MOVING VAN DRIVER by Isacc Renee M.D. [id number]
--- NOTE | 2024-12-23 11:43 | P.HP_ITS ---
Providers/Chief Complaint 2 Admitting Physician: sOcar Babin MD Primary Care Provider: HARVEY Lakhani Chief Complaint: RESP. DISTRESS History of Present Illness Sathish Caballero is a 74 year old male with past medical history of COPD, intermediate resident, hypertension, hyperlipidemia, type 2 diabetes mellitus, INOCENCIO chronically on 2 to 3 L of oxygen was sent into the ER from [facility] because of concern for difficulty in breathing and confusion which started yesterday. History taken through the nursing staff at the intermediate. As per the nursing staff patient was found to have difficulty in breathing yesterday in the morning when they realized that his oxygen tank has run out. He was placed back on his home oxygen requirement but his confusion and difficulty in breathing continued to get worse hence he was sent to the ER. On presentation to the ER patient was found to be in hypercapnic respiratory failure with pCO2 of more than 100 and a pH of less than 7.1. Patient was placed on BiPAP. As patient's mentation continued to remain poor, continued to have respiratory acidosis with hypercapnia decision was made to intubate. Currently seen with FiO2 of 70%, saturating 95%. Review of Systems 2 General: Reports: ROS unobtainable due to endotracheal tube Medications/Allergies Home Medications Medication Instructions Recorded Confirmed Last Taken Type calcium carbonate (Calcium 600) 600 mg PO DAILY 12/01/19 12/23/24 12/22/24 History lancets 33 gauge (OneTouch Delica #100 ea 12/01/19 12/23/24 Unknown History Lancets) axbxpcyu-bbs-ohxut 200 mcg-lycop 1 tab PO DAILY 12/01/19 12/23/24 12/22/24 History 175 mcg-lutei 250 mcg-herb 178 tablet (Oliver Multivitamin For Men) lancets 30 gauge (Ultra Fine #100 ea 07/31/20 12/23/24 Unknown Rx Lancets) blood sugar diagnostic #50 ea 04/28/22 12/23/24 Unknown Rx oxygen concentrator w/ portable #1 ea 02/16/23 12/23/24 Unknown Rx Hospital Bed #1 ea 02/18/23 12/23/24 Unknown Rx clopidogrel 75 mg tablet 75 mg PO DAILY #30 tabs 09/23/23 12/23/24 12/22/24 Rx diltiazem HCl 30 mg tablet 30 mg PO BID #60 tabs 09/23/23 12/23/24 12/22/24 Rx (Cardizem) empagliflozin 25 mg tablet 25 mg PO QAM #30 tabs 09/23/23 12/23/24 12/22/24 Rx (Jardiance) evolocumab 140 mg/mL subcutaneous 140 mg SUBCUT Q14D #2 mL 09/23/23 12/23/24 12/22/24 Rx pen injector (Jonas Stephenson) fluticasone propionate 50 1 spray intranasal Q12H Nasal 09/23/23 12/23/24 Unknown Rx mcg/actuation nasal Congestion #15.8 mL spray,suspension (Flonase Allergy Relief) levothyroxine 100 mcg tablet 100 mcg PO DAILY #30 tabs 09/23/23 12/23/24 12/22/24 Rx metoprolol succinate 25 mg 25 mg PO DAILY #30 tabs 09/23/23 12/23/24 12/22/24 Rx tablet,extended release 24 hr (Toprol XL) tamsulosin 0.4 mg capsule (Flomax) 0.4 mg PO DAILY #30 caps 09/23/23 12/23/24 12/22/24 Rx tizanidine 2 mg tablet 2 mg PO BEDTIME Muscle Spasm #30 09/23/23 12/23/24 12/22/24 Rx tabs topiramate 50 mg tablet (Topamax) 50 mg PO BID #60 tabs 09/23/23 12/23/24 12/22/24 Rx diclofenac sodium 1 % topical gel 4 g topical Q8H PRN Pain 11/07/23 12/23/24 Unknown History losartan 25 mg tablet 50 mg PO DAILY 09/18/24 12/23/24 12/22/24 History acetaminophen 325 mg tablet 650 mg PO Q4H PRN Pain 12/23/24 12/23/24 Unknown History aluminum-mag hydroxide-simethicone 30 ml PO Q5W PRN Indigestion 12/23/24 12/23/24 Unknown History 200 mg-200 mg-20 mg/5 mL oral susp aspirin 81 mg tablet,delayed 81 mg PO DAILY 12/23/24 12/23/24 12/22/24 History release bisacodyl 10 mg rectal suppository 10 mg ND DAILY PRN Constipation 12/23/24 12/23/24 Unknown History (Dulcolax (bisacodyl)) glipizide 5 mg tablet 5 mg PO DAILY 12/23/24 12/23/24 12/22/24 History loperamide 2 mg tablet (Imodium 2 mg PO Q24H PRN loose stools 12/23/24 12/23/24 Unknown History A-D) magnesium hydroxide 400 mg/5 mL 30 ml PO DAILY PRN Constipation 12/23/24 12/23/24 Unknown History oral suspension (Milk of Magnesia) melatonin 3 mg tablet 3 mg PO BEDTIME 12/23/24 12/23/24 12/22/24 History menthol 2.7 mg lozenges (Cough 2.7 mg mucous membrane Q2H PRN 12/23/24 12/23/24 Unknown History Drops) Cough polyvinyl alcohol 1.4 % eye drops 2 drp ophthalmic (eye) TID 12/23/24 12/23/24 12/22/24 History (Artificial Tears (polyvinyl alcohol)) sertraline 25 mg tablet 25 mg PO BEDTIME 12/23/24 12/23/24 12/22/24 History sodium phosphates 19 gram-7 118 ml ND DAILY PRN Constipation 12/23/24 12/23/24 Unknown History gram/118 mL enema (Fleet Enema) tizanidine 4 mg tablet 4 mg PO Q8H PRN Pain 12/23/24 12/23/24 Unknown History Allergies Allergy/AdvReac Type Severity Reaction Status Date / Time No Known Allergies Allergy Verified 09/23/23 13:00 PFSH Acute 2 PFSH: Medical History (Updated 12/23/24 @ 16:38 by Oscar Babin MD) History of PFTs 2019 restrictive ventilatory defect, mil decrease DLCO COVID-19 10/2021 Hypoxia Mixed anxiety depressive disorder Essential (primary) hypertension Aneurysm of unspecified site Vitamin D insufficiency Cellulitis of left eyelid O2 dependent Platelets decreased Left sciatic nerve pain Type 2 diabetes mellitus with hyperglycemia Atrial tachycardia Shortness of breath Osteoarthritis of both knees Heartburn Helminthiasis, unspecified ASHD (arteriosclerotic heart disease) Surgical History (Updated 09/18/24 @ 23:22 by Naomi Gutiérrez MD) S/P PTCA (percutaneous transluminal coronary angioplasty) LAD H/O eye surgery Left Family History Sister Cancer Other CAD (coronary artery disease) Diabetes Stroke Social History Smoking and tobacco/nicotine status: former use of tobacco/nicotine Second hand smoke exposure: No Alcohol intake: former Substance/Drug Use: never Adopted: No Caregiver/support person: No Lives independently: Yes Household members: spouse Housing: House Marital status: Current occupational status: retired Do you think of yourself as: Straight/Heterosexual Current gender identity: Male Vitals/I&O/Wt Last Vital Signs Temp 97.9 F 12/23/24 09:30 Pulse 92 12/23/24 09:56 Resp 14 12/23/24 11:34 BP 90/57 12/23/24 09:30 Pulse Ox 96 12/23/24 11:34 O2 Del Method Mechanical Ventilation 12/23/24 10:01 FiO2 50 12/23/24 11:34 12/22/24 12/23/24 12/23/24 22:59 06:59 14:59 Intake Total 1.325 / 1.325 54.033 / 54.033 Balance 1.325 / 1.325 54.033 / 54.033 Weight last 48 hrs Weight 106.594 kg Physical Exam 2 Narrative: General: Intubated, sedated HEENT: PERRLA, pupils bilaterally equal and reactive Chest: Bronchial breath sounds all over lung [place] with occasional rhonchi, crackles present more so in right middle lobe CVS: S1-S2 regular, no murmurs, no tachycardia, no gallops, no rubs Abdomen: Soft, nontender, no organomegaly, bowel sounds present Neuro: No focal deficits, no facial deformity, intubated, sedated Urinary Catheter Management: Ferrell: Cath Placed During This Visit: yes Urinary Catheter Date of Insertion: 12/23/24 Urinary Catheter Time of Insertion: 06:53 Data 12/23/24 04:55 12/23/24 04:55 Micro: Microbiology 12/23/24 06:52 Bacterial Antigens - Final Urine Kidney 12/23/24 08:19 Blood Culture - Preliminary Blood SPECIMEN COLLECTED 12/23/24 07:08 Blood Culture - Preliminary Blood SPECIMEN COLLECTED A&P Assessment and plan (1) Acute on chronic respiratory failure with hypoxia and hypercapnia: Due to RSV in setting of COPD exacerbation. Associated with respiratory acidosis. Mechanically ventilated. Repeat ABG. Continue sedation with fentanyl and Versed. Repeat ABG and chest x-ray in AM. Solu-Medrol 40 mg every 6 hour. Pulmicort twice daily, ipratropium, Xopenex every 6 hours. Check blood culture, sputum culture, MRSA swab. Empirically start patient on oral azithromycin for atypical coverage, as patient is critically sick start on IV Zosyn and vancomycin. Discontinue vancomycin if MRSA swab negative. Monitor trough levels. Strict input output charting, daily weights. Check echocardi hold off on IV fluids or ogram. Lasix for now. (2) Respiratory acidosis: (3) RSV (respiratory syncytial virus infection): (4) Pneumonia: (5) Obesity hypoventilation syndrome: (6) Type 2 diabetes mellitus: Check A1c. Takes glipizide at home. Insulin sliding scale every 6 hour. (7) Essential (primary) hypertension: Goal blood pressure less than 140/90 mmHg with mean over 65. Blood pressures slightly soft. Hold off on home dose of Cardizem, losartan. Switch from metoprolol succinate to tartrate to avoid tachycardia. For now start on metoprolol 12.5 mg twice daily. Plan Anesthesia: Sedation with fentanyl and Versed. Glycemic control: Check A1c. Insulin sliding scale every 6 hour. Nutrition: N.p.o. CODE STATUS: Full code as per paperwork from intermediate. As per the nursing staff they are not sure about his DPOA. They have a brother Henrik Caballero on file. His number is [phone] PUD prophylaxis: Protonix DVT prophylaxis: Heparin 5000 every 12 hourly Discharge planning: Back to SNF once medically stable Admit to ICU This documentation was created by [employer] grain i farmworker software. Every effort was made to ensure accuracy of grain i farmworker. Any obvious errors or omissions should be clarified with the author of the document. Attestations 2 Medical Necessity Statement*: Admission for more than 2 midnights for management of respiratory failure with acidosis in setting of acute on chronic hypoxic and hypercapnic respiratory failure, COPD exacerbation due to RSV, pneumonia Critical Care Time: The high probability of a clinically significant, sudden or life threatening deterioration of the patient's [pulmonary, cardiac] system(s) required my full and direct attention, intervention and personal management. The critical care time is as shown. This time is in addition to time spent performing any reported procedures but includes the following: [x] Data and vital sign review and interpretation [x] Patient assessment, examination and intervention [x] Documentation [x] Medication orders and management Critical Care Time (min): 90 Coding Level of Care Code Critical Care >/= 30 minutes Critical care time (in minutes): 90 The high probability of a clinically significant, sudden or life threatening deterioration, as referenced in this documentation, required my full and direct attention, intervention and personal management. The critical care time shown is in addition to time spent performing any reported separately billable procedures and includes the following: [x] Data and vital sign review and interpretation [x ] Patient assessment, examination and intervention [x] Medication orders and management [x] Patient/Family updates as able [x] Care Coordination and Documentation. Other Coding Information This patient has a high probability of clinically significant, sudden or life threatening deterioration of the patient's (neurological/pulmonary/cardiac/renal/ID/endocrine) systems required my full, direct attention, the highest level of physician preparedness for urgent intervention and personal management. I managed/supervised life or organ supporting interventions that required frequent physician assessment. I devoted my full attention in the ICU to the direct care of this patient for the period of time indicated above. Time I spent with family or surrogate(s) is included only if the patient was incapable of providing necessary information or participating in decision making. This time includes the following services provided: Telemetry review Mechanical Ventilation Hemodynamic interpretation, assessment and management Review and interpretation of CXR Review and interpretation of lab values Review and interpretation of microbiologic data and culture results Review of medications and administration Review and interpretation of Nutrition requirements and management Discussion of management with other consultants and services Clinical update to family members Diagnoses Acute on chronic respiratory failure with hypoxia and hypercapnia J96.21; J96.22 Respiratory acidosis E87.29 RSV (respiratory syncytial virus infection) B33.8 Pneumonia J18.9 Obesity hypoventilation syndrome E66.2 Type 2 diabetes mellitus E11.9 Essential (primary) hypertension I10
[2024-12-23 11:52] LABS: Glucose Point of Care 220 mg/dL (70-110)
[2024-12-23] MEDS: insulin lispro 100 unit/1 mL SUBCUT ×3 (12:14→23:39)
[2024-12-23] MEDS: methylPREDNISolone sod succ 40 mg/mL INJ IVP ×3 (12:16→23:28)
[2024-12-23 12:58] LABS: MRSA PCR OZH (swab) MRSA Detected (Negative)
[2024-12-23 14:24] LABS: Lactic Acid level (Lactate) 2.2 mmol/L (0.5-2.2)
--- NOTE | 2024-12-23 15:43 | PHA.VACGOAL ---
Vancomycin Goal - Goal Vancomycin Goal:: 15-20 mg/L Vancomycin Indication:: Other - Therapy Current therapy:: Pip/Tazo Day of therpy:: Day [1]of [] . Actual body weight (kg): 106.594 kg - Data Labs: WBC 10.14 10^3/uL (3.29-11.43) 12/23/24 04:55 RBC 4.64 10^6/uL (3.85-5.65) 12/23/24 04:55 Hgb 13.30 g/dL (11.27-16.99) 12/23/24 04:55 Hct 47.3 % (37-53) 12/23/24 04:55 MCV 101.9 fl (82-101) H 12/23/24 04:55 MCH 28.7 pg (27-33) 12/23/24 04:55 MCHC 28.1 g/dL (30-55) L 12/23/24 04:55 RDW 12.7 % (12.1-15.1) 12/23/24 04:55 Sodium 139 mmol/L (136-145) 12/23/24 04:55 Potassium 4.7 mmol/L (3.5-5.1) 12/23/24 04:55 Chloride 98 mmol/L (98-107) 12/23/24 04:55 Carbon Dioxide 35 mmol/L (22-29) H 12/23/24 04:55 Anion Gap 10.7 (5-19) 12/23/24 04:55 BUN 18 mg/dL (8-23) 12/23/24 04:55 Creatinine 0.7 mg/dL (0.7-1.2) 12/23/24 04:55 GFR Calculation Not Reportable 12/23/24 04:55 Treatment plan:: new consult Follow up:: No history of vancomycin found. Received 3000 mg load dose. Started on maintenance dose of 2000 mg q12h based on population based pharmacokinetic nomogram.
[2024-12-23] MEDS: fentaNYL 1,000 MCG/100 ML BAG 7.5 MCG IV (15:52)
[2024-12-23 17:58] LABS: Glucose Point of Care 336 mg/dL (70-110)
[2024-12-23 22:15] LABS: Glucose Point of Care 215 mg/dL (70-110)
[2024-12-23] MEDS: vancomycin 2,000 MG/400 ML PIGGYBACK 200 MG IV (22:16)
[2024-12-23] MEDS: insulin glargine 100 units/1 mL 10 UNIT SUBCUT (22:18)
[2024-12-23] MEDS: metoprolol tartrate 25 mg Tablet 12.5 MG PO (22:29)
[2024-12-23] MEDS: sertraline 50 mg Tablet 25 MG PO (22:29)
[2024-12-23 23:38] LABS: Glucose Point of Care 179 mg/dL (70-110)
[2024-12-24] VITALS (55 sets, daily range): BP systolic 82–136; BP diastolic 54–73; PULSE 80–110; RESP 12–31; TEMP 37.4–38.4; O2SAT 90–97
[2024-12-24] MEDS: piperacillin-tazobactam 3.375 GM in sodium chloride 0.9% (plus) 50 ML IV ×4 (00:18→23:23)
[2024-12-24] MEDS: ipratropium 0.5 mg/2.5 mL Neb INHALATION ×4 (01:11→20:18)
[2024-12-24] MEDS: levalbuterol 0.63 mg/3 mL Neb INHALATION ×4 (01:11→20:19)
[2024-12-24] MEDS: chlorhexidine gluconate 4% Btl 118 mL 1 APPLIC TOPICAL (01:54)
[2024-12-24] MEDS: heparin 5,000 unit/mL INJ 1 mL 5000 UNIT SUBCUT ×3 (01:55→17:30)
[2024-12-24] MEDS: acetaminophen 325 mg Tablet 650 MG PO (01:56)
[2024-12-24 04:41] LABS: ABG PH Result 7.38 (7.35-7.45); Arterial Blood Gas Hematocrit 39.6 % (42-52); Base Excess ABG 4.2 mmol/L (-2.0-2.0); Blood Gas Allen Test Pos; Blood Gas Sample Site Radial, right; Blood Gas Sample Type Arterial; Carboxyhemoglobin 0.9 %THgb (0.4-20.1); HCO3 ABG 30.4 mmol/L (22-26); HGB O2 Sat 94.8 % (95-100); Ionized Calcium Level - ABG 1.3 mmol/L (1.1-1.4); Methemoglobin 0.5 % (0.4-1.5); Oxygen Device VENT; Oxygen Saturation ABG 96.2; PO2 ABG 79.3 mmHg (80.0-100.0); PO2 FiO2 Ratio Arterial Blood 198; Potassium Level - ABG 3.8 mmol/L (3.5-5.0); Total Hemoglobin 12.9 g/dL (14-18)
[2024-12-24 04:46] LABS: Glucose Point of Care 192 mg/dL (70-110)
[2024-12-24] MEDS: methylPREDNISolone sod succ 40 mg/mL INJ IVP ×4 (05:00→23:38)
[2024-12-24] MEDS: fentaNYL 1,000 MCG/100 ML BAG 5 MCG IV (05:10)
[2024-12-24] MEDS: insulin lispro 100 unit/1 mL SUBCUT ×4 (05:12→23:36)
[2024-12-24 05:37] LABS: Hematocrit 41.5 % (37-53); Lymphocytes # 0.6 10^3/uL (0.8-4.8); Mean Corpuscular HGB Conc 30.6 g/dL (30-55); Mean Corpuscular Hemoglobin 29.5 pg (27-33); Mean Corpuscular Volume 96.3 fl (82-101); Mean Platelet Volume 10.9 fL (7.4-10.4); Monocytes # 0.6 10^3/uL (0.2-0.9); Monocytes % 6.5 %; Neutrophils # 7.53 10^3/uL (1.8-7.7); Neutrophils % 85.8 %; Nucleated Red Blood Cells % 0 %; Platelet Count 143 10^3/cmm (157-399); Red Blood Count 4.31 10^6/uL (3.85-5.65); Red Cell Distribution Width 13.1 % (12.1-15.1); White Blood Count 8.77 10^3/uL (3.29-11.43)
[2024-12-24 06:02] LABS: Alanine Aminotransferase 10 U/L (0-41); Albumin Level 3.8 g/dL (3.5-5.2); Alkaline Phosphatase 48 U/L (40-130); Anion Gap 15.9 (5-19); Aspartate Amino Transferase 14 U/L (0-40); Blood Urea Nitrogen 32 mg/dL (8-23); Calcium 9.4 mg/dL (8.5-10.5); Carbon Dioxide 28 mmol/L (22-29); Chloride 101 mmol/L (98-107); Chol HDL Ratio 1.88 mg/dL (1.0-5.00); Cholesterol 77 mg/dL (0-200); Creatinine Clr Calc Pharmacy 76.5159; Globulin 2.4 g/dL (1.3-4.6); Glucose 213 mg/dL (65-115); HDL Cholesterol 41 mg/dL (60-100); LDL Cholesterol Calculated 12 mg/dL (50-129); LDL HDL Ratio 0.29 RATIO (0.00-3.22); Magnesium 2.1 mg/dL (1.7-2.3); Osmolality Calculated 305 mOsm/kg (285-295); Phosphorus 2.9 mg/dL (2.5-4.5); Potassium 3.9 mmol/L (3.5-5.1); Sodium 141 mmol/L (136-145); Total Bilirubin 0.3 mg/dL (0.15-1.2); Total Protein 6.2 g/dL (6.6-8.7); Triglycerides 120 mg/dL (0-150)
[2024-12-24 07:29] LABS: Glucose Point of Care 181 mg/dL (70-110)
[2024-12-24] MEDS: budesonide 0.5 mg/2 mL Neb INHALATION ×2 (08:05→20:18)
[2024-12-24] MEDS: midazolam hcl 100 MG/100 ML BAG IV (08:11)
[2024-12-24] MEDS: levothyroxine 100 mcg Tablet PO (08:32)
[2024-12-24] MEDS: topiramate 100 mg Tablet 50 MG PO ×2 (08:32→17:31)
[2024-12-24] MEDS: duloxetine 60 mg Capsule PO ×2 (08:32→17:31)
[2024-12-24] MEDS: azithromycin 250 mg Tablet 500 MG PO (08:32)
[2024-12-24] MEDS: fenofibrate 145 mg Tablet PO (08:32)
[2024-12-24] MEDS: clopidogrel 75 mg Tablet PO (08:33)
[2024-12-24] MEDS: docusate sodium 100 mg Capsule PO ×2 (08:33→17:31)
[2024-12-24] MEDS: tamsulosin 0.4 mg Capsule PO (08:33)
[2024-12-24] MEDS: pantoprazole 40 mg SDV IVP (08:35)
[2024-12-24] MEDS: metoprolol tartrate 25 mg Tablet 12.5 MG PO ×2 (08:35→23:21)
--- NOTE | 2024-12-24 10:36 | XRR_ITS ---
PROCEDURE INFORMATION: Exam: XR Chest Exam date and time: 12/24/2024 6:04 PM Age: 74 years old Clinical indication: Dyspnea and shortness of breath; Additional info: Intubated TECHNIQUE: Imaging protocol: Radiologic exam of the chest. Views: 1 view. COMPARISON: CT chest con [id number] 12/23/2024 8:47 AM FINDINGS: Lungs: There is mild pulmonary vascular congestion minimal bibasilar subsegmental atelectasis. Pleural spaces: Unremarkable. No pleural effusion. No pneumothorax. Heart/Mediastinum: Stable cardiomegaly. Bones/joints: Unremarkable. XR/XR chest 1V portable [id number] IMPRESSION: Cardiomegaly associated with pulmonary vascular congestion and minimal bibasilar subsegmental atelectasis.
[2024-12-24] MEDS: dexmedeTOMIDine 0.9 % NaCL 400 MCG/100 ML PREMIX 5.15 MCG IV ×2 (11:09→18:33)
[2024-12-24] MEDS: vancomycin 1,500 MG/300 ML PIGGYBACK 200 MG IV ×2 (11:09→23:46)
[2024-12-24 11:47] LABS: Glucose Point of Care 214 mg/dL (70-110)
--- NOTE | 2024-12-24 11:50 | PC.NURSE ---
weaning sedation changed to precedex for attempt weaning vent changed to cpap, noted essential tremor when awaken
[2024-12-24 12:08] LABS: ABG PCO2 53.5 mmHg (35-45); ABG PH Result 7.36 (7.35-7.45); Alveolar-Arterial Oxygen Gradi 14.1 mmHg (5-10); Arterial Blood Gas Hematocrit 40.7 % (42-52); Base Excess ABG 3.3 mmol/L (-2.0-2.0); Blood Gas Allen Test Pos; Blood Gas Operator Identificat CAK; Blood Gas Sample Site Radial, left; Blood Gas Sample Type Arterial; Carboxyhemoglobin 0.8 %THgb (0.4-20.1); HGB O2 Sat 94.1 % (95-100); Ionized Calcium Level - ABG 1.3 mmol/L (1.1-1.4); Methemoglobin 1.2 % (0.4-1.5); Oxygen Device VENT; Oxygen Saturation ABG 96.1; PO2 ABG 78.1 mmHg (80.0-100.0); PO2 FiO2 Ratio Arterial Blood 223; Total Hemoglobin 13.3 g/dL (14-18)
--- NOTE | 2024-12-24 12:23 | PC.NURSE ---
pt awake struggling against tubes and lines , biting et tube ,, doctor aware abgs done at this time and extubated placed on nc
--- NOTE | 2024-12-24 13:23 | PC.NURSE ---
swallow test done diet ordered
--- NOTE | 2024-12-24 15:51 | PC.NURSE ---
wasted fent/versed with witness nam JAMES
--- NOTE | 2024-12-24 16:11 | P.PN_ITS ---
Subjective 2 Subjective: Patient seen multiple times today. Today morning when seen he was on sedation with fentanyl and Versed. He was in a ventilator setting up a FiO2 of 35%, tidal volume of 500 with PEEP of 5. Saturating over 92%. Gradually he was weaned off and transition to Precedex and extubated to nasal cannula. Vitals/I&O/Wt Last Vital Signs Temp 99.4 F 12/24/24 15:16 Pulse 99 12/24/24 15:16 Resp 24 H 12/24/24 15:16 BP 131/65 12/24/24 15:16 Pulse Ox 92 12/24/24 15:16 O2 Del Method Nasal Cannula 12/24/24 13:27 O2 Flow Rate 3 12/24/24 13:27 FiO2 36 12/24/24 11:07 12/24/24 12/24/24 12/24/24 06:59 14:59 22:59 Intake Total 607.308 / 1485.358 579.859 / 579.859 24.663 / 604.522 Output Total 1150 / 1150 Balance -542.692 / 335.358 579.859 / 579.859 24.663 / 604.522 Weight last 48 hrs Weight 102.965 kg Weight 106.594 kg Physical Exam 2 Narrative: General: No acute distress, following simple directions, AO x 1 to 2 HEENT: PERRLA, pupils bilaterally equal and reactive Chest: Bronchial breath sounds all over lung escoto with occasional rhonchi, crackles present more so in right middle lobe CVS: S1-S2 regular, no murmurs, no tachycardia, no gallops, no rubs Abdomen: Soft, nontender, no organomegaly, bowel sounds present Neuro: No focal deficits, no facial deformity, moving all limbs Urinary Catheter Management: Ferrell: Cath Placed During This Visit: yes Reason for Continuing Indwelling Catheter: Accurate Measurement of Urinary Output in Critically Ill Patients Urinary Catheter Date of Insertion: 12/23/24 Urinary Catheter Time of Insertion: 06:53 Data 12/24/24 05:11 12/24/24 05:11 Micro: Microbiology 12/23/24 08:19 Blood Culture - Preliminary Blood NEGATIVE TO DATE 12/23/24 07:08 Blood Culture - Preliminary Blood NEGATIVE TO DATE A&P Assessment and plan (1) Acute on chronic respiratory failure with hypoxia and hypercapnia: Due to RSV in setting of COPD exacerbation. Associated with respiratory acidosis. Mechanically ventilated. Appreciate morning ABG. Patient was extubated after repeat ABG at around 12:30 PM. Currently on Precedex. Wean depending on mentation. Maintain oxygen supplementation with saturation over 88%. Wean accordingly. Repeat ABG in AM. Solu-Medrol 40 mg every 6 hour. Pulmicort twice daily, ipratropium, Xopenex every 6 hours. Follow-up blood culture, sputum culture, MRSA swab positive. Urine bacterial antigen negative. Empirically continue on oral azithromycin for atypical coverage,, vancomycin and Zosyn. Strict input output charting, daily weights. Echocardiogram done shows a normal EF with grade 1 diastolic dysfunction with hypokinetic RV. IV Lasix 40 mg one-time given concerns for hypokinetic RV to maintain patient as dehydrates possible given extubation status. . (2) Respiratory acidosis: (3) RSV (respiratory syncytial virus infection): (4) Pneumonia: (5) Obesity hypoventilation syndrome: (6) Type 2 diabetes mellitus: A1c 6.7 Takes glipizide at home. Insulin sliding scale every 6 hour. Blood sugars elevated most likely in setting of steroids. Continue with glargine 10 units nightly. (7) Essential (primary) hypertension: Goal blood pressure less than 140/90 mmHg with mean over 65. Blood pressures slightly soft. Hold off on home dose of Cardizem, losartan. Switch from metoprolol succinate to tartrate to avoid tachycardia. For now continue with metoprolol 12.5 mg twice daily. Restart other antihypertensive depending on heart rate and blood pressures. Plan Analgesia: Morphine 2 mg IV 4 hours as needed Anesthesia: Precedex drip. Glycemic control: A1c 6.7 insulin sliding scale every 6 hour. Glargine 10 units nightly Nutrition: N.p.o. advance diet as per speech evaluation. CODE STATUS: Full code as per paperwork from [facility]term. As per the nursing staff they are not sure about his DPOA. They have a brother Henrik Caballero on file. His number is [phone] PUD prophylaxis: Protonix DVT prophylaxis: Heparin 5000 every 12 hourly Discharge planning: Back to SNF once medically stable Continue care at ICU. This documentation was created by [employer] citrus picker software. Every effort was made to ensure accuracy of citrus picker. Any obvious errors or omissions should be clarified with the author of the document. Attestations 2 Medical Necessity Statement*: Requires further hospitalization for management of acute on chronic hypoxic and hypercapnic respiratory failure in setting of pneumonia, RSV leading to COPD exacerbation, postextubation status Critical Care Time: The high probability of a clinically significant, sudden or life threatening deterioration of the patient's [pulmonary, cardiac, renal] system(s) required my full and direct attention, intervention and personal management. The critical care time is as shown. This time is in addition to time spent performing any reported procedures but includes the following: [x] Data and vital sign review and interpretation [x] Patient assessment, examination and intervention [x] Documentation [x] Medication orders and management Critical Care Time (min): 90 Coding Level of Care Code Critical Care >/= 30 minutes Critical care time (in minutes): 90 The high probability of a clinically significant, sudden or life threatening deterioration, as referenced in this documentation, required my full and direct attention, intervention and personal management. The critical care time shown is in addition to time spent performing any reported separately billable procedures and includes the following: [x] Data and vital sign review and interpretation [x ] Patient assessment, examination and intervention [x] Medication orders and management [x] Patient/Family updates as able [x] Care Coordination and Documentation. Other Coding Information This patient has a high probability of clinically significant, sudden or life threatening deterioration of the patient's (neurological/pulmonary/cardiac/renal/ID/endocrine) systems required my full, direct attention, the highest level of physician preparedness for urgent intervention and personal management. I managed/supervised life or organ supporting interventions that required frequent physician assessment. I devoted my full attention in the ICU to the direct care of this patient for the period of time indicated above. Time I spent with family or surrogate(s) is included only if the patient was incapable of providing necessary information or participating in decision making. This time includes the following services provided: Telemetry review Mechanical Ventilation Hemodynamic interpretation, assessment and management Review and interpretation of CXR Review and interpretation of lab values Review and interpretation of microbiologic data and culture results Review of medications and administration Review and interpretation of Nutrition requirements and management Discussion of management with other consultants and services Clinical update to family members Diagnoses Acute on chronic respiratory failure with hypoxia and hypercapnia J96.21; J96.22 Respiratory acidosis E87.29 RSV (respiratory syncytial virus infection) B33.8 Pneumonia J18.9 Obesity hypoventilation syndrome E66.2 Type 2 diabetes mellitus E11.9 Essential (primary) hypertension I10
[2024-12-24 17:23] LABS: Glucose Point of Care 197 mg/dL (70-110)
[2024-12-24] MEDS: FUROsemide 10 mg/mL SDV 4mL 40 MG IVP (17:30)
[2024-12-24] MEDS: sertraline 50 mg Tablet 25 MG PO (23:20)
[2024-12-24 23:33] LABS: Glucose Point of Care 173 mg/dL (70-110)
[2024-12-24] MEDS: insulin glargine 100 units/1 mL 10 UNIT SUBCUT (23:35)
[2024-12-25] VITALS (30 sets, daily range): BP systolic 84–157; BP diastolic 58–105; PULSE 69–96; RESP 14–39; TEMP 36.6–36.9; O2SAT 86–94
[2024-12-25] MEDS: levalbuterol 0.63 mg/3 mL Neb INHALATION ×4 (02:23→22:09)
[2024-12-25] MEDS: ipratropium 0.5 mg/2.5 mL Neb INHALATION ×4 (02:23→22:09)
[2024-12-25] MEDS: heparin 5,000 unit/mL INJ 1 mL 5000 UNIT SUBCUT ×3 (03:26→16:53)
[2024-12-25] MEDS: magnesium hydroxide 30 mL UDC PO (05:10)
[2024-12-25] MEDS: methylPREDNISolone sod succ 40 mg/mL INJ IVP ×3 (05:14→20:44)
[2024-12-25] MEDS: insulin lispro 100 unit/1 mL SUBCUT ×4 (05:24→23:34)
[2024-12-25 06:02] LABS: Basophils % 0.1 %; Hematocrit 45.7 % (37-53); Lymphocytes # 0.9 10^3/uL (0.8-4.8); Lymphocytes % 7.4 %; Mean Corpuscular HGB Conc 29.1 g/dL (30-55); Mean Corpuscular Volume 99.6 fl (82-101); Mean Platelet Volume 10.5 fL (7.4-10.4); Monocytes # 0.8 10^3/uL (0.2-0.9); Neutrophils # 9.72 10^3/uL (1.8-7.7); Nucleated Red Blood Cells % 0 %; Platelet Count 156 10^3/cmm (157-399); Red Blood Count 4.59 10^6/uL (3.85-5.65); Red Cell Distribution Width 13.2 % (12.1-15.1); White Blood Count 11.44 10^3/uL (3.29-11.43)
[2024-12-25 06:17] LABS: Glucose Point of Care 145 mg/dL (70-110)
[2024-12-25 06:26] LABS: Alanine Aminotransferase 15 U/L (0-41); Albumin Level 3.8 g/dL (3.5-5.2); Alkaline Phosphatase 45 U/L (40-130); Anion Gap 12.2 (5-19); Aspartate Amino Transferase 19 U/L (0-40); Blood Urea Nitrogen 38 mg/dL (8-23); Calcium 9.5 mg/dL (8.5-10.5); Carbon Dioxide 33 mmol/L (22-29); Chloride 99 mmol/L (98-107); Creatinine Clr Calc Pharmacy 84.1925; Globulin 3.3 g/dL (1.3-4.6); Glucose 170 mg/dL (65-115); Magnesium 2.4 mg/dL (1.7-2.3); Osmolality Calculated 303 mOsm/kg (285-295); Phosphorus 3.9 mg/dL (2.5-4.5); Potassium 4.2 mmol/L (3.5-5.1); Sodium 140 mmol/L (136-145); Total Bilirubin 0.2 mg/dL (0.15-1.2); Total Protein 7.1 g/dL (6.6-8.7)
--- NOTE | 2024-12-25 08:03 | XR_ITS ---
WS: [id number] Exam: XR chest 1V portable [id number] Date/Time of Exam: 12/25/2024 8:10 AM Reason For Exam: resp failure Comparison 12/24/2024. The lungs are fully expanded. No acute infiltrates. Bibasal plaque atelectasis. Heart size top limits normal. Pulmonary vascularity mildly prominent. No pleural effusions. The mediastinum is normal in c ontour. Bony structures are intact. IMPRESSION1. Bibasal plaque atelectasis and increased pulmonary vascularity. Very little change since the prior study.
[2024-12-25 08:26] LABS: Glucose Point of Care 176 mg/dL (70-110)
[2024-12-25] MEDS: budesonide 0.5 mg/2 mL Neb INHALATION ×2 (09:23→22:09)
[2024-12-25] MEDS: tamsulosin 0.4 mg Capsule PO (10:21)
[2024-12-25] MEDS: metoprolol tartrate 25 mg Tablet 12.5 MG PO ×2 (10:21→20:44)
[2024-12-25] MEDS: clopidogrel 75 mg Tablet PO (10:21)
[2024-12-25] MEDS: topiramate 100 mg Tablet 50 MG PO ×2 (10:23→17:56)
[2024-12-25] MEDS: duloxetine 60 mg Capsule PO ×2 (10:24→17:56)
[2024-12-25] MEDS: azithromycin 250 mg Tablet 500 MG PO (10:24)
[2024-12-25] MEDS: fenofibrate 145 mg Tablet PO (10:25)
[2024-12-25] MEDS: levothyroxine 100 mcg Tablet PO (10:25)
[2024-12-25] MEDS: pantoprazole 40 mg SDV IVP (10:26)
[2024-12-25] MEDS: piperacillin-tazobactam 3.375 GM in sodium chloride 0.9% (plus) 50 ML IV ×3 (10:29→23:33)
[2024-12-25 12:00] LABS: Vancomycin Trough 20.6 ug/mL (10-15)
[2024-12-25 12:00] LABS: Glucose Point of Care 155 mg/dL (70-110)
--- NOTE | 2024-12-25 15:38 | PM.PN ---
Subjective Subjective: No acute events overnight. Today morning patient seen sitting comfortably in chair. On 3 to 4 L of oxygen supplementation. Seems to be close to his baseline mentation as per the caregiver. Patient is awake and alert to self, date of , being in the hospital, reason for being in the hospital. Vitals/I&O/Wt Last Vital Signs Temp 97.9 F 12/25/24 12:00 Pulse 74 12/25/24 14:22 Resp 18 12/25/24 14:22 BP 122/62 12/25/24 13:34 Pulse Ox 92 12/25/24 14:22 O2 Del Method Nasal Cannula 12/25/24 14:22 O2 Flow Rate 4 12/25/24 14:22 FiO2 36 12/24/24 11:07 12/25/24 12/25/24 12/25/24 06:59 14:59 22:59 Intake Total 855.407 / 1537.739 444 / 444 Output Total 2049 / 2049 650 / 650 Balance -1194.593 / -512.261 -206 / -206 Weight last 48 hrs Weight 100.97 kg Weight 102.965 kg Physical Exam Narrative: General: No acute distress, AO x 2 to 3, occasional episodes of confusion HEENT: PERRLA, pupils bilaterally equal and reactive Chest: Bronchial breath sounds all over lung escoto with occasional rhonchi, crackles present more so in right middle lobe CVS: S1-S2 regular, no murmurs, no tachycardia, no gallops, no rubs Abdomen: Soft, nontender, no organomegaly, bowel sounds present Neuro: No focal deficits, no facial deformity, moving all limbs Urinary Catheter Management: Ferrell: Cath Placed During This Visit: yes Reason for Continuing Indwelling Catheter: Accurate Measurement of Urinary Output in Critically Ill Patients Urinary Catheter Date of Insertion: 12/23/24 Urinary Catheter Time of Insertion: 06:53 Data 12/25/24 05:30 12/25/24 05:30 Micro: Microbiology 12/24/24 08:10 Gram Stain - Final Sputum - Endotracheal Tube Aspirate Sputum Culture - Preliminary A&P Assessment and plan (1) Acute on chronic respiratory failure with hypoxia and hypercapnia: Due to RSV in setting of COPD exacerbation. Associated with respiratory acidosis. Mechanically ventilated. Appreciate morning ABG. Extubated on 12/24. Precedex weaned off. Maintain oxygen supplementation with saturation over 88%. Wean accordingly. Repeat ABG in AM. Solu-Medrol to 40 mg IV 3 times daily. Pulmicort twice daily, ipratropium, Xopenex every 6 hours. Follow-up blood culture, sputum culture, MRSA swab positive. Urine bacterial antigen negative. Empirically continue on oral azithromycin for atypical coverage, vancomycin and Zosyn. De-escalate as per culture status Strict input output charting, daily weights. Echocardiogram done shows a normal EF with grade 1 diastolic dysfunction with hypokinetic RV. Hold off on Lasix today. Will redose as per fluid status in next 24 hours. Patient is overall euvolemic. . (2) Respiratory acidosis: (3) RSV (respiratory syncytial virus infection): (4) Pneumonia: (5) Obesity hypoventilation syndrome: (6) Type 2 diabetes mellitus: A1c 6.7 Takes glipizide at home. Insulin sliding scale every 6 hour. Continue with glargine 10 units nightly. (7) Essential (primary) hypertension: Goal blood pressure less than 140/90 mmHg with mean over 65. Blood pressures slightly soft. Hold off on home dose of Cardizem, losartan. Switch from metoprolol succinate to tartrate to avoid tachycardia. For now continue with metoprolol 12.5 mg twice daily. Restart other antihypertensive depending on heart rate and blood pressures. Plan Dementia: Baseline. Patient does not seem to be on any medications other than sertraline at bedtime. For now we will continue along with topiramate 50 mg twice daily. Sitter as needed. Analgesia: Morphine 2 mg IV 4 hours as needed Glycemic control: A1c 6.7 insulin sliding scale every 6 hour. Glargine 10 units nightly Nutrition: N.p.o. advance diet as per speech evaluation. CODE STATUS: Full code as per paperwork from senior living. Care discussed in detail with patient's son Conrad over the phone. Both Conrad and his sister are the DPOA. He does have a brother Henrik Caballero on file. His number is [phone] PUD prophylaxis: Protonix DVT prophylaxis: Heparin 5000 every 12 hourly Discharge planning: Back to SNF once medically stable Transfer out of ICU to [facility]. This documentation was created by [employer] gum scoring machine operator software. Every effort was made to ensure accuracy of gum scoring machine operator. Any obvious errors or omissions should be clarified with the author of the document. Attestations Medical Necessity Statement*: Requires further hospitalization for management of hypoxic hypercapnic respiratory failure in setting of pneumonia, RSV in a patient with baseline dementia, senior living resident, postextubation 12/24 Diagnoses Acute on chronic respiratory failure with hypoxia and hypercapnia J96.21; J96.22 Respiratory acidosis E87.29 RSV (respiratory syncytial virus infection) B33.8 Pneumonia J18.9 Obesity hypoventilation syndrome E66.2 Type 2 diabetes mellitus E11.9 Essential (primary) hypertension I10
--- NOTE | 2024-12-25 16:06 | PC.SOCIAL ---
IMM updated IMM dated and initialed, copy given to patient and copy placed in chart.
[2024-12-25 17:39] LABS: Glucose Point of Care 167 mg/dL (70-110)
[2024-12-25] MEDS: vancomycin 1,500 MG/300 ML PIGGYBACK 200 MG IV (18:00)
--- NOTE | 2024-12-25 18:44 | CTR_ITS ---
PROCEDURE INFORMATION: Exam: CT Right Lower Extremity, Knee Exam date and time: 12/25/2024 8:58 PM Age: 74 years old Clinical indication: Swelling, leg or foot; Additional info: Redness, swelling, hot to touch. TECHNIQUE: Imaging protocol: CT of the right lower extremity without contrast was performed. Exam focused on the knee. Radiation optimization: All CT scans at this facility use at least one of these dose optimization techniques: automated exposure control; mA and/or kV adjustment per patient size (includes targeted exams where dose is matched to clinical indication); or iterative reconstruction. COMPARISON: CR XR knees AP WB w BI lmt ORTH 10/15/2021 2:22 PM RADIATION DOSE METRICS: Total DLP (mGy-cm): 527.47 FINDINGS: Bones/joints: Severe tricompartmental osteoarthritis, worst in the medial femorotibial compartment where there is [id number] and subchondral sclerosis. There is extrusion and suspected tear of the medial meniscus. No evidence of fracture or subluxation. Small joint effusion. Soft tissues: Muscles and tendons are grossly intact. Mild volar soft tissue edema without evidence of fluid collection or hematoma. CT/CT knee RT wo con* [id number] IMPRESSION: 1. Osteoarthritis without evidence of fracture or subluxation. 2. Suspected medial meniscal tear. Consider follow-up MRI of the knee.
--- NOTE | 2024-12-25 18:46 | PC.NURSE ---
Transferring patient up to [facility]. report given to isaías JAMES. Upon transfer, right knee was found to be red, swollen, hot to the touch. no pain reported. Nurse alerted Dr ross, received orders for CT of right knee.
--- NOTE | 2024-12-25 19:11 | PC.NURSE ---
Shift summary: in ICU for most of the day, transferred to [facility] 45 minutes before shift change. Patient has been confused all day. Reliably oriented to self, occasionally oriented to place. According to a nurse resident who also works at [facility] [employer] and takes care of him there, he is near his baseline mentation. Patient has pule dout multiple IVs today. Ferrell discontinued. During transfer to [facility] it was discovered that his right knee was slightly swollen, red, hot to the touch, no pain reported. CT ordered.
[2024-12-25 20:29] LABS: Glucose Point of Care 208 mg/dL (70-110)
[2024-12-25] MEDS: insulin glargine 100 units/1 mL 10 UNIT SUBCUT (20:44)
[2024-12-25] MEDS: sertraline 50 mg Tablet 25 MG PO (20:44)
[2024-12-25 23:25] LABS: Glucose Point of Care 238 mg/dL (70-110)
[2024-12-26] VITALS (14 sets, daily range): BP systolic 107–127; BP diastolic 53–77; PULSE 69–82; RESP 16–19; TEMP 36.4–37.1; O2SAT 90–95
[2024-12-26] MEDS: heparin 5,000 unit/mL INJ 1 mL 5000 UNIT SUBCUT ×3 (00:45→16:58)
[2024-12-26] MEDS: ipratropium 0.5 mg/2.5 mL Neb INHALATION ×4 (02:47→20:53)
[2024-12-26] MEDS: levalbuterol 0.63 mg/3 mL Neb INHALATION ×4 (02:47→20:53)
[2024-12-26 04:35] LABS: Glucose Point of Care 150 mg/dL (70-110)
[2024-12-26] MEDS: insulin lispro 100 unit/1 mL SUBCUT ×3 (05:28→17:47)
[2024-12-26 07:13] LABS: Hematocrit 47.2 % (37-53); Mean Corpuscular HGB Conc 28.4 g/dL (30-55); Mean Corpuscular Hemoglobin 28.4 pg (27-33); Mean Platelet Volume 10.9 fL (7.4-10.4); Platelet Count 198 10^3/cmm (157-399); Red Blood Count 4.72 10^6/uL (3.85-5.65); White Blood Count 10.06 10^3/uL (3.29-11.43)
[2024-12-26 07:26] LABS: Alanine Aminotransferase 37 U/L (0-41); Alkaline Phosphatase 45 U/L (40-130); Anion Gap 10.4 (5-19); Aspartate Amino Transferase 36 U/L (0-40); Blood Urea Nitrogen 39 mg/dL (8-23); Calcium 9.6 mg/dL (8.5-10.5); Carbon Dioxide 37 mmol/L (22-29); Chloride 101 mmol/L (98-107); Creatinine Clr Calc Pharmacy 94.2099; Globulin 3.2 g/dL (1.3-4.6); Glucose 143 mg/dL (65-115); Magnesium 2.5 mg/dL (1.7-2.3); Osmolality Calculated 310 mOsm/kg (285-295); Potassium 4.4 mmol/L (3.5-5.1); Sodium 144 mmol/L (136-145); Total Bilirubin 0.2 mg/dL (0.15-1.2); Total Protein 7.2 g/dL (6.6-8.7)
[2024-12-26] MEDS: budesonide 0.5 mg/2 mL Neb INHALATION ×2 (07:27→20:53)
[2024-12-26] MEDS: piperacillin-tazobactam 3.375 GM in sodium chloride 0.9% (plus) 50 ML IV (08:15)
[2024-12-26] MEDS: aspirin 81 mg EC Tablet PO (08:16)
[2024-12-26] MEDS: azithromycin 250 mg Tablet 500 MG PO (08:16)
[2024-12-26] MEDS: fenofibrate 145 mg Tablet PO (08:16)
[2024-12-26] MEDS: topiramate 100 mg Tablet 50 MG PO ×2 (08:16→16:59)
[2024-12-26] MEDS: levothyroxine 100 mcg Tablet PO (08:16)
[2024-12-26] MEDS: methylPREDNISolone sod succ 40 mg/mL INJ IVP (08:17)
[2024-12-26] MEDS: clopidogrel 75 mg Tablet PO (08:17)
[2024-12-26] MEDS: metoprolol tartrate 25 mg Tablet 12.5 MG PO ×2 (08:17→21:14)
[2024-12-26] MEDS: duloxetine 60 mg Capsule PO ×2 (08:17→16:59)
[2024-12-26] MEDS: docusate sodium 100 mg Capsule PO ×2 (08:17→16:59)
[2024-12-26] MEDS: tamsulosin 0.4 mg Capsule PO (08:17)
[2024-12-26 08:29] LABS: Slide Review Slide Review Perform
[2024-12-26 08:30] LABS: Absolute Neutrophil 6.4 10^3/cmm (1.4-6.5); Absolute Segmented Neutrophil 6.2 10/cmm (1.6-7.1); Band Neutrophils Absolute 0.2 10^3/cmm (0.0-1.2); Eosinophils 0 %; Lymphocytes 7 %; Lymphocytes Absolute 2.1 10^3/cmm (1.2-3.4); Monocytes Absolute 0.5 10^3/cmm (0.1-0.6); Ovalocytes 1+; Platelet Estimate Normal (Normal); Segmented Neutrophils 62 %; Total Cells Counted 100 (0-100)
[2024-12-26] MEDS: pantoprazole 40 mg SDV IVP (09:52)
[2024-12-26 11:38] LABS: Glucose Point of Care 193 mg/dL (70-110)
[2024-12-26] MEDS: vancomycin 1,500 MG/300 ML PIGGYBACK 200 MG IV (12:07)
--- NOTE | 2024-12-26 12:09 | P.PN_ITS ---
Subjective 2 Subjective: Patient sitting on edge of bed during evaluation. He is starting to work with therapy. Endorses some shortness of breath. Responses are slow but appropriate to situation. He seems to deny other new complaints. Medications: Reviewed: Yes Vitals/I&O/Wt Last Vital Signs Temp 98.3 F 12/26/24 11:14 Pulse 75 12/26/24 11:14 Resp 19 H 12/26/24 11:14 BP 127/70 12/26/24 11:14 Pulse Ox 90 12/26/24 11:14 O2 Del Method Nasal Cannula 12/26/24 11:14 O2 Flow Rate 3 12/26/24 11:14 FiO2 36 12/24/24 11:07 12/25/24 12/26/24 12/26/24 22:59 06:59 14:59 Intake Total 918 / 1412 50 / 1462 430.593 / 430.593 Output Total 700 / 1350 0 / 1350 Balance 218 / 62 50 / 112 430.593 / 430.593 Weight last 48 hrs Weight 99.881 kg Weight 100.97 kg Physical Exam 2 Narrative: General: Patient is awake. Sitting on edge of bed. Conversational with verbal responses slowed. Head: Facial asymmetry is present. Neck: No JVD. Cardiovascular: RRR. No gallops. No murmurs. Lungs: Breath sounds are coarse with faint rhonchi, no use of accessory muscles, no crackles or wheezes. Skin: No jaundice. No rashes. Abdomen: Normal bowel sounds, abdomen soft and nontender. Genito Urinary: Genital exam not performed since complaints not related. Rectal: Rectal exam not performed since no symptoms indicated blood loss. Extremities: No cyanosis or clubbing. Musculoskeletal: No swollen or erythematous joints. Neurological: Moves all 4 extremities. No myoclonus. Urinary Catheter Management: Ferrell: Cath Placed During This Visit: yes Reason for Continuing Indwelling Catheter: Accurate Measurement of Urinary Output in Critically Ill Patients Urinary Catheter Date of Insertion: 12/23/24 Urinary Catheter Time of Insertion: 06:53 Data 12/26/24 05:55 12/26/24 05:55 Micro: Microbiology 12/24/24 08:10 Gram Stain - Final Sputum - Endotracheal Tube Aspirate Sputum Culture - Final A&P Assessment and plan (1) Pneumonia: Respiratory culture reviewed, Gram stain reviewed, no culprit above on culture Discontinue IV vancomycin, start linezolid (hold ssri; also on snri) No evidence of pseudomonal infection, narrow Zosyn to ceftriaxone Continue azithromycin Encourage mobilization, patient currently working with therapy (2) Acute on chronic respiratory failure with hypoxia and hypercapnia: Respiratory status is improving Continue supplemental oxygen, wean support as tolerated Treating underlying pneumonia and COPD (3) COPD exacerbation: Transition from IV steroids to oral prednisone Continue Pulmicort Continue breathing treatments (4) RSV (respiratory syncytial virus infection): Droplet/contact precautions (5) Heart failure with preserved ejection fraction: Heart failure with preserved ejection fraction Fairly euvolemic on exam Continue with fluid restriction Strict I's and O's, daily weights (6) Type 2 diabetes mellitus: Continue Lantus Sliding-scale insulin correction Avoid hypoglycemia (7) Essential (primary) hypertension: Continue metoprolol tartrate Restart home Cardizem Can likely restart home losartan soon pending clinical course (8) Dementia: Dementia complicated by acute metabolic encephalopathy Mentation seems to be improving, likely close to baseline Currently has sitter, hopefully can discontinue soon Qualifiers: Dementia type: unspecified type Dementia severity: moderate Dementia behavioral or psychological symptom: without behavioral, psychotic, or mood disturbance or anxiety Qualified Code(s): F03.B0 - Unspecified dementia, moderate, without behavioral disturbance, psychotic disturbance, mood disturbance, and anxiety Plan DVT prophylaxis: Heparin Attestations 2 Medical Necessity Statement*: Patient requires ongoing hospitalization for titration of IV antibiotics, therapy, serial labs, monitoring culture data, and supportive care. Coding Level of Care Code Acute Code for [facility] Diagnoses Pneumonia J18.9 Acute on chronic respiratory failure with hypoxia and hypercapnia J96.21; J96.22 COPD exacerbation J44.1 RSV (respiratory syncytial virus infection) B33.8 Heart failure with preserved ejection fraction I50.30 Type 2 diabetes mellitus E11.9 Essential (primary) hypertension I10 Moderate dementia without behavioral disturbance, psychotic disturbance, mood disturbance, or anxiety, unspecified dementia type F03.B0 Dementia type: unspecified type Dementia severity: moderate Dementia behavioral or psychological symptom: without behavioral, psychotic, or mood disturbance or anxiety
[2024-12-26] MEDS: linezolid premix 600 MG/300 ML PREMIX 300 MG IV ×2 (12:31→23:59)
[2024-12-26] MEDS: cefTRIAXone 1,000 mg SDV 1000 MG IVP (12:31)
[2024-12-26 16:20] LABS: Glucose Point of Care 185 mg/dL (70-110)
[2024-12-26] MEDS: dilTIAZem 30 mg Tablet PO (18:16)
[2024-12-26 21:02] LABS: Glucose Point of Care 118 mg/dL (70-110)
[2024-12-27] VITALS (8 sets, daily range): BP systolic 117–126; BP diastolic 61–71; PULSE 67–81; RESP 17–20; TEMP 36.6; O2SAT 90–93
[2024-12-27] MEDS: ipratropium 0.5 mg/2.5 mL Neb INHALATION ×2 (01:25→07:33)
[2024-12-27] MEDS: levalbuterol 0.63 mg/3 mL Neb INHALATION ×2 (01:25→07:33)
[2024-12-27] MEDS: heparin 5,000 unit/mL INJ 1 mL 5000 UNIT SUBCUT ×2 (02:24→09:22)
[2024-12-27 06:35] LABS: Glucose Point of Care 132 mg/dL (70-110)
[2024-12-27] MEDS: budesonide 0.5 mg/2 mL Neb INHALATION (07:33)
[2024-12-27] MEDS: fenofibrate 145 mg Tablet PO (09:20)
[2024-12-27] MEDS: duloxetine 60 mg Capsule PO (09:20)
[2024-12-27] MEDS: levothyroxine 100 mcg Tablet PO (09:20)
[2024-12-27] MEDS: dilTIAZem 30 mg Tablet PO (09:20)
[2024-12-27] MEDS: aspirin 81 mg EC Tablet PO (09:20)
[2024-12-27] MEDS: predniSONE 20 mg Tablet 40 MG PO (09:20)
[2024-12-27] MEDS: tamsulosin 0.4 mg Capsule PO (09:20)
[2024-12-27] MEDS: docusate sodium 100 mg Capsule PO (09:21)
[2024-12-27] MEDS: metoprolol tartrate 25 mg Tablet 12.5 MG PO (09:21)
[2024-12-27] MEDS: clopidogrel 75 mg Tablet PO (09:21)
[2024-12-27] MEDS: topiramate 100 mg Tablet 50 MG PO (09:21)
[2024-12-27] MEDS: azithromycin 250 mg Tablet 500 MG PO (09:21)
--- NOTE | 2024-12-27 10:08 | PC.SOCIAL ---
IMM Updated Updated IMM. Provided pt a copy. Initialed, dated, & timed a copy & placed in chart.
--- NOTE | 2024-12-27 10:36 | PM.DCS ---
Discharge Providers Date of Admission: 12/23/24 07:30 Date of Discharge: December 27, 2024 Attending Provider at Admission: Oscar Babin MD Attending Provider at Discharge: Jon Valentine MD Primary Care Provider: HARVEY Lakhani Diagnoses at Discharge Discharge Diagnosis (1) Pneumonia: Status: Acute (2) Acute on chronic respiratory failure with hypoxia and hypercapnia: Status: Acute (3) COPD exacerbation: Status: Acute (4) RSV (respiratory syncytial virus infection): Status: Acute (5) Heart failure with preserved ejection fraction: Status: Acute (6) Type 2 diabetes mellitus: Status: Acute (7) Essential (primary) hypertension: Status: Chronic (8) Dementia: Status: Chronic Qualifiers: Dementia behavioral or psychological symptom: without behavioral, psychotic, or mood disturbance or anxiety Dementia severity: moderate Dementia type: unspecified type Qualified Code(s): F03.B0 - Unspecified dementia, moderate, without behavioral disturbance, psychotic disturbance, mood disturbance, and anxiety Reason for Visit Reason for Visit: RESP. DISTRESS Hospital Course Hospital Course Sathish Caballero is a 74 year old male with past medical history of COPD, shelter resident, hypertension, hyperlipidemia, type 2 diabetes mellitus, INOCENCIO chronically on 2 to 3 L of oxygen was sent into the ER from [facility] because of concern for difficulty in breathing and confusion, found to have community-acquired pneumonia, RSV infection, COPD exacerbation, and acute on chronic respiratory failure with hypoxia and hypercapnia. He was treated with broad-spectrum antibiotics, IV steroids, and breathing treatments. Cultures remain negative. His MRSA screen was positive. His symptomatology improved. Oxygen requirements returned to his normal baseline. He is rotated to prednisone, cefdinir, azithromycin, and Zyvox at discharge. Patient discharging back to his facility in stable condition. Multiple blood pressure meds were initially held. Most were reintroduced other than losartan. Patient is normotensive at time of discharge. Recommending holding losartan as to avoid hypotension and monitoring blood pressure for the next 14 days. Losartan can be reinitiated if needed. Physical Exam Narrative: General: Patient is awake. Laying in bed. Verbal sponsors are slowed but appropriate. Head: Facial asymmetry is present, unchanged from yesterday's exam. Neck: No JVD. Cardiovascular: RRR. No gallops. No murmurs. Lungs: Adequate air movement. Lung sounds are mildly coarse, no use of accessory muscles, no crackles or wheezes. On supplemental support. Skin: No jaundice. No rashes. Abdomen: Normal bowel sounds, abdomen soft and nontender. Extremities: No cyanosis or clubbing. Musculoskeletal: No swollen or erythematous joints. Neurological: Moves all 4 extremities. No myoclonus. Urinary Catheter Management: Ferrell: Cath Placed During This Visit: yes Reason for Continuing Indwelling Catheter: Accurate Measurement of Urinary Output in Critically Ill Patients Urinary Catheter Date of Insertion: 12/23/24 Urinary Catheter Time of Insertion: 06:53 Discharge Data Studies Completed and Pending Completed Studies During Hospitalization Category Date Time Status CT chest wo con [id number] Stat Cat Scan 12/23/24 08:[address] knee RT wo con* [id number] Routine Cat Scan 12/25/24 18:44 Completed XR chest 1V portable [id number] Routine Exams 12/24/24 10:36 Completed XR chest 1V portable [id number] Routine Exams 12/25/24 08:03 Completed XR chest 1V portable [id number] Stat Exams 12/23/24 05:30 Completed XR chest 1V portable [id number] Stat Exams 12/23/24 07:17 Completed CV. echo complete* [id number] Routine Ultrasound 12/23/24 09:36 Completed Pending at discharge Category Date Time Status Blood Culture Stat Lab 12/23/24 07:08 Results CBC Auto Diff [Complete Blood Count w/Auto] AM LABS Lab 12/27/24 04:00 Ordered Magnesium AM LABS Lab 12/27/24 04:00 Ordered Renal Function Panel AM LABS Lab 12/27/24 04:00 Ordered Radiology Impressions Chest CT 12/23/24 08:05 IMPRESSION: Multifocal pneumonia, [id number]-left. Knee CT 12/25/24 18:44 IMPRESSION: 1. Osteoarthritis without evidence of fracture or subluxation. 2. Suspected medial meniscal tear. Consider follow-up MRI of the knee. Laboratory Results WBC 10.06 10^3/uL (3.29-11.43) 12/26/24 05:55 RBC 4.72 10^6/uL (3.85-5.65) 12/26/24 05:55 Hgb 13.40 g/dL (11.27-16.99) 12/26/24 05:55 Hct 47.2 % (37-53) 12/26/24 05:55 MCV 100.0 fl (82-101) 12/26/24 05:55 MCH 28.4 pg (27-33) 12/26/24 05:55 MCHC 28.4 g/dL (30-55) L 12/26/24 05:55 RDW 13.0 % (12.1-15.1) 12/26/24 05:55 Plt Count 198 10^3/cmm (157-399) 12/26/24 05:55 MPV 10.9 fL (7.4-10.4) H 12/26/24 05:55 Neut % (Auto) 85.0 % 12/25/24 05:30 Lymph % (Auto) Not Reportable 12/26/24 05:55 Evangeline % (Auto) Not Reportable 12/26/24 05:55 Eos % (Auto) 0.0 % 12/25/24 05:30 Baso % (Auto) 0.1 % 12/25/24 05:30 Neut # (Auto) 9.72 10^3/uL (1.8-7.7) H 12/25/24 05:30 Lymph # (Auto) Not Reportable 12/26/24 05:55 Evangeline # (Auto) Not Reportable 12/26/24 05:55 Eos # (Auto) 0.0 10^3/uL (0.0-0.8) 12/25/24 05:30 Baso # (Auto) 0.0 10^3/uL (0.0-0.1) 12/25/24 05:30 Nucleated RBC % (auto) 0 % 12/25/24 05:30 Total Counted 100 (0-100) 12/26/24 05:55 Atypical Lymphs % 14.0 % (0-5) H 12/26/24 05:55 Absolute Neutrophils 6.4 10^3/cmm (1.4-6.5) 12/26/24 05:55 Segmented Neutrophils 62 % 12/26/24 05:55 Band Neutrophils 2.0 % 12/26/24 05:55 Absolute Lymphocytes 2.1 10^3/cmm (1.2-3.4) 12/26/24 05:55 Lymphocytes (Manual) 7 % 12/26/24 05:55 Monocytes (Manual) 5.0 % 12/26/24 05:55 Absolute Monocytes 0.5 10^3/cmm (0.1-0.6) 12/26/24 05:55 Eosinophils (Manual) 0 % 12/26/24 05:55 Absolute Eosinophils 0.0 10^3/cmm (0.0-0.7) 12/26/24 05:55 Basophils (Manual) 0.0 % 12/26/24 05:55 Absolute Basophils 0.0 10^3/cmm (0.0-0.2) 12/26/24 05:55 Nucleated RBCs # 0.0 /100WBC 12/25/24 05:30 Platelet Estimate Normal (Normal) 12/26/24 05:55 Ovalocytes 1+ H 12/26/24 05:55 D-Dimer 0.53 ug/mLFEU (0-0.59) 12/23/24 04:55 Specimen Type Arterial 12/24/24 12:05 Sample Site Radial, left 12/24/24 12:05 ABG pH 7.36 (7.35-7.45) 12/24/24 12:05 ABG pCO2 53.5 mmHg (35-45) H 12/24/24 12:05 ABG pO2 78.1 mmHg (80.0-100.0) L 12/24/24 12:05 ABG PO2/FiO2 Ratio 223 12/24/24 12:05 ABG HCO3 30.0 mmol/L (22-26) H 12/24/24 12:05 ABG O2 Saturation 96.1 12/24/24 12:05 ABG Base Excess 3.3 mmol/L (-2.0-2.0) H 12/24/24 12:05 Drake Test Pos 12/24/24 12:05 A-a O2 Gradient 14.1 mmHg (5-10) H 12/24/24 12:05 Hematocrit 40.7 % (42-52) L 12/24/24 12:05 Hgb O2 Saturation 94.1 % (95-100) L 12/24/24 12:05 Carboxyhemoglobin 0.8 %THgb (0.4-20.1) 12/24/24 12:05 Methemoglobin 1.2 % (0.4-1.5) 12/24/24 12:05 Total Hemoglobin 13.3 g/dL (14-18) L 12/24/24 12:05 Sodium 144.0 mmol/L (131-143) H 12/24/24 12:05 Potassium 4.0 mmol/L (3.5-5.0) 12/24/24 12:05 Glucose 214.0 mg/dL (70-115) H 12/24/24 12:05 Ionized Calcium 1.3 mmol/L (1.1-1.4) 12/24/24 12:05 O2 Delivery Device Vent 12/24/24 12:05 FiO2 35.0 % 12/24/24 12:05 Tidal Volume 0.50 12/24/24 04:35 PEEP 5.0 cmH20 12/24/24 12:05 Skin Pass Operator ID Cak 12/24/24 12:05 Sodium 144 mmol/L (136-145) 12/26/24 05:55 Potassium 4.4 mmol/L (3.5-5.1) 12/26/24 05:55 Chloride 101 mmol/L (98-107) 12/26/24 05:55 Carbon Dioxide 37 mmol/L (22-29) H 12/26/24 05:55 Anion Gap 10.4 (5-19) 12/26/24 05:55 BUN 39 mg/dL (8-23) H 12/26/24 05:55 Creatinine 0.8 mg/dL (0.7-1.2) 12/26/24 05:55 GFR Calculation Not Reportable 12/26/24 05:55 Glucose 143 mg/dL (65-115) H 12/26/24 05:55 POC Glucose 132 mg/dL (70-110) H 12/27/24 06:30 Estimat Average Glucose 146 12/23/24 04:55 Hemoglobin A1c 6.7 % (4.0-6.0) H 12/23/24 04:55 Calculated Osmolality 310 mOsm/kg (285-295) H 12/26/24 05:55 Lactic Acid 2.3 mmol/L (0.5-2.2) H 12/23/24 08:28 Lactic Acid (Sepsis) 2.2 mmol/L (0.5-2.2) 12/23/24 13:48 Calcium 9.6 mg/dL (8.5-10.5) 12/26/24 05:55 Phosphorus 3.0 mg/dL (2.5-4.5) 12/26/24 05:55 Magnesium 2.5 mg/dL (1.7-2.3) H 12/26/24 05:55 Iron 23 ug/dL (59-158) L 12/23/24 07:08 TIBC 359 mcg/dl 12/23/24 07:08 % Saturation 6.4 % (20-50) L 12/23/24 07:08 Unsat Iron Binding 336 ug/dL (112-347) 12/23/24 07:08 Total Bilirubin 0.2 mg/dL (0.15-1.2) 12/26/24 05:55 AST 36 U/L (0-40) 12/26/24 05:55 ALT 37 U/L (0-41) 12/26/24 05:55 Alkaline Phosphatase 45 U/L (40-130) 12/26/24 05:55 Troponin T Baseline 16 ng/L (0-15) H 12/23/24 04:55 Troponin T 120 Minute 18.83 ng/L (0-15) H 12/23/24 07:08 Delta Troponin T 2.83 ABS# (0-10) 12/23/24 07:08 Troponin T Hi Sens 6Hr 22.01 ng/L (0-15) H 12/23/24 10:47 Troponin T Hi Sens 6Hr Delta 6.01 ng/L (0-12) 12/23/24 10:47 NT-Pro-B Natriuret Pep 147 pg/mL (0-125) H 12/23/24 04:55 Total Protein 7.2 g/dL (6.6-8.7) 12/26/24 05:55 Albumin 4.0 g/dL (3.5-5.2) 12/26/24 05:55 Globulin 3.2 g/dL (1.3-4.6) 12/26/24 05:55 Triglycerides 120 mg/dL (0-150) 12/24/24 05:11 Triglycerides Cancelled 12/24/24 05:11 Cholesterol 77 mg/dL (0-200) 12/24/24 05:11 Cholesterol Cancelled 12/24/24 05:11 LDL Cholesterol, Calc 12 mg/dL (50-129) L 12/24/24 05:11 LDL Cholesterol, Calc Cancelled 12/24/24 05:11 HDL Cholesterol 41 mg/dL (60-100) L 12/24/24 05:11 HDL Cholesterol Cancelled 12/24/24 05:11 LDL/HDL Ratio 0.29 RATIO (0.00-3.22) 12/24/24 05:11 LDL/HDL Ratio Cancelled 12/24/24 05:11 Cholesterol/HDL Ratio 1.88 mg/dL (1.0-5.00) 12/24/24 05:11 Cholesterol/HDL Ratio Cancelled 12/24/24 05:11 Vitamin B12 525 pg/mL (232-1245) 12/23/24 07:08 Folate 10.0 ng/mL (4.5-32.2) 12/24/24 05:11 Procalcitonin 0.20 ng/mL (0-0.5) 12/24/24 05:11 Procalcitonin Cancelled 12/24/24 05:11 TSH 1.43 uIU/mL (0.27-4.20) 12/23/24 07:08 Urine Color Yellow (Yellow) 12/23/24 06:55 Urine Appearance Clear (CLEAR) 12/23/24 06:55 Urine pH 5.5 (5-7) 12/23/24 06:55 Ur Specific [place] 1.030 (1.005-1.030) 12/23/24 06:55 Urine Protein Trace (Negative) A 12/23/24 06:55 Urine Glucose (UA) 2+ (Normal) H 12/23/24 06:55 Urine Ketones Trace (Negative) 12/23/24 06:55 Urine Blood Negative (Negative) 12/23/24 06:55 Urine Nitrate Negative (Negative) 12/23/24 06:55 Urine Bilirubin Negative (Negative) 12/23/24 06:55 Urine Urobilinogen 0.2 mg/dL (Negative) 12/23/24 06:55 Ur Leukocyte Esterase Negative (Negative) 12/23/24 06:55 Urine RBC 0-2 /hpf (0-2) 12/23/24 06:55 Urine WBC 0-5 /hpf (0-5) 12/23/24 06:55 Ur Squamous Epith Cells 0-5 /hpf (0-5) 12/23/24 06:55 Amorphous Sediment Not Reportable 12/23/24 06:55 Urine Bacteria None seen /hpf (NONE) 12/23/24 06:55 Hyaline Casts 0.40 /lpf 12/23/24 06:55 Nasal MRSA (PCR) Mrsa detected (Negative) A 12/23/24 11:35 Vancomycin Trough 20.6 ug/mL (10-15) H 12/25/24 10:55 Coronavirus (PCR) Negative (Negative) 12/23/24 06:55 Influenza A (PCR) Negative (Negative) 12/23/24 06:55 Influenza Type B (PCR) Negative (Negative) 12/23/24 06:55 RSV (PCR) Positive (Negative) A 12/23/24 06:55 Vitals Last Vital Signs Temp 97.9 F 12/27/24 07:32 Pulse 70 12/27/24 07:33 Resp 20 H 12/27/24 07:33 BP 117/61 12/27/24 07:32 Pulse Ox 92 12/27/24 07:33 O2 Del Method Nasal Cannula 12/27/24 07:33 O2 Flow Rate 3 12/27/24 07:33 FiO2 36 12/24/24 11:07 Discharge Plan Discharge Patient Disposition: Xfer SNF Condition: Stable Prescriptions: New azithromycin 250 mg Tablet 500 mg PO DAILY 5 Days Qty: 5 0RF prednisone 20 mg Tablet 40 mg PO DAILY 5 Days Qty: 5 0RF cefdinir 300 mg capsule 300 mg PO BID 5 Days Qty: 10 0RF linezolid 600 mg tablet 600 mg PO BID 5 Days Qty: 10 0RF Continued calcium carbonate [Calcium 600] 600 mg calcium (1,500 mg) tablet 600 mg PO DAILY Oliver Multivitamin For Men 200-175-250 mcg tablet 1 tab PO DAILY (DME) lancets [OneTouch Delica Lancets] 33 gauge misc See Rx Instructions .ROUTE .MEDSUPPLY Qty: 100 Rx Instructions: As directed Cardizem 30 mg tablet 30 mg PO BID Qty: 60 2RF clopidogrel 75 mg tablet 75 mg PO DAILY Qty: 30 2RF Jardiance 25 mg tablet 25 mg PO QAM Qty: 30 2RF Repatha SureClick 140 mg/mL pen injector 140 mg SUBCUT Q14D Qty: 2 2RF Flonase Allergy Relief 50 mcg/actuation spray,suspension 1 spray INTRANASAL Q12H Qty: 15.8 2RF Rx Instructions: administer into each nostril levothyroxine 100 mcg tablet 100 mcg PO DAILY Qty: 30 2RF metoprolol succinate [Toprol XL] 25 mg tablet extended release 24 hr 25 mg PO DAILY Qty: 30 2RF tamsulosin [Flomax] 0.4 mg capsule 0.4 mg PO DAILY Qty: 30 2RF tizanidine 2 mg tablet 2 mg PO BEDTIME Qty: 30 2RF topiramate [Topamax] 50 mg tablet 50 mg PO BID Qty: 60 2RF (DME) Hospital Bed See Rx Instructions .Route .MEDSUPPLY Qty: 1 0RF Rx Instructions: As directed (DME) lancets [Ultra Fine Lancets] 30 gauge misc See Rx Instructions .ROUTE .MEDSUPPLY Qty: 100 0RF Rx Instructions: As directed (DME) blood sugar diagnostic Strip See Rx Instructions .ROUTE .MEDSUPPLY Qty: 50 5RF Rx Instructions: 1 daily (DME) oxygen concentrator w/ portable See Rx Instructions .Route .MEDSUPPLY Qty: 1 0RF Rx Instructions: As directed oxygen concentrator w/portable home fill @4 liters n/c 99 months diclofenac sodium 1 % Gel 4 g TOPICAL Q8H PRN (Reason: Pain) Rx Instructions: apply to single knee, ankle, foot; for foot includes sole/toes/top of foot polyvinyl alcohol [Artificial Tears (polyvin alc)] 1.4 % Drops 2 drp OPHTHALMIC (EYE) TID loperamide [Imodium A-D] 2 mg Tablet 2 mg PO Q24H PRN (Reason: loose stools) sertraline 25 mg Tablet 25 mg PO BEDTIME alum-mag hydroxide-simeth 200-200-20 mg/5 mL Suspension 30 ml PO Q5W PRN (Reason: Indigestion) Rx Instructions: administer between meals and at bedtime Cough Drops 2.7 mg Lozenge 2.7 mg MUCOUS MEMBRANE Q2H PRN (Reason: Cough) acetaminophen 325 mg Tablet 650 mg PO Q4H PRN (Reason: Pain) tizanidine 4 mg Tablet 4 mg PO Q8H PRN (Reason: Pain) melatonin 3 mg Tablet 3 mg PO BEDTIME aspirin 81 mg Tablet,Delayed Release (Dr/Ec) 81 mg PO DAILY glipizide 5 mg Tablet 5 mg PO DAILY magnesium hydroxide [Milk of Magnesia] 400 mg/5 mL Suspension 30 ml PO DAILY PRN (Reason: Constipation) bisacodyl [Dulcolax (bisacodyl)] 10 mg Suppository 10 mg VT DAILY PRN (Reason: Constipation) Fleet Enema 19-7 gram/118 mL Enema 118 ml VT DAILY PRN (Reason: Constipation) Held losartan 25 mg Tablet 50 mg PO DAILY Hold Instructions: Resume on 01/10/25. Hold for 14 days. Monitor blood pressures during this time to see if still required. Discharge Orders: Discharge Order (Routine); Ordered 12/27/24 Ordered By: Jon Valentine Referrals: [facility] [place] [Outside] Sade Zhu FNP-C [Primary Care Provider] - (We have notified your physician's clinic of the need for a follow-up appointment to be scheduled. If you have not heard from them within the next 2 business days, please call them directly. ) Discharge Diet: Advance as tolerated, Cardiac and Diabetic Discharge Activity: Resume usual activity and Increase activity as tolerated Patient Instructions: Prednisone (By mouth), Azithromycin (By mouth), Cefdinir (By mouth), Linezolid (By mouth), Opioid Safety Activity Restrictions/Additional Instructions: 1. Take medications as described. 2. Monitor blood pressure at facility. 3. Increase activity as tolerated with assistance. 4. Follow-up with provider at facility within 7 days return. Discharge Attestations Time Spent in Discharge Care*: greater than 30 min Quality Metrics Clinical Quality Measures [ No reported AMI, CVA or VTE this stay] Coding Level of Care Code Acute Code for [facility] Fwd Diagnoses Pneumonia J18.9 Acute on chronic respiratory failure with hypoxia and hypercapnia J96.21; J96.22 COPD exacerbation J44.1 RSV (respiratory syncytial virus infection) B33.8 Heart failure with preserved ejection fraction I50.30 Type 2 diabetes mellitus E11.9 Essential (primary) hypertension I10 Moderate dementia without behavioral disturbance, psychotic disturbance, mood disturbance, or anxiety, unspecified dementia type F03.B0 Dementia behavioral or psychological symptom: without behavioral, psychotic, or mood disturbance or anxiety Dementia severity: moderate Dementia type: unspecified type
[2024-12-27 11:43] LABS: Glucose Point of Care 142 mg/dL (70-110)
[2024-12-27 11:44] LABS: Basophils % 0.1 %; Eosinophils % 0.4 %; Hematocrit 48.3 % (37-53); Lymphocytes # 1.6 10^3/uL (0.8-4.8); Lymphocytes % 15.3 %; Mean Corpuscular HGB Conc 29.2 g/dL (30-55); Mean Corpuscular Hemoglobin 29.3 pg (27-33); Mean Corpuscular Volume 100.4 fl (82-101); Mean Platelet Volume 10.5 fL (7.4-10.4); Monocytes # 0.6 10^3/uL (0.2-0.9); Monocytes % 6.3 %; Neutrophils # 7.88 10^3/uL (1.8-7.7); Neutrophils % 77.4 %; Nucleated Red Blood Cells % 0 %; Platelet Count 152 10^3/cmm (157-399); Red Blood Count 4.81 10^6/uL (3.85-5.65); Red Cell Distribution Width 12.8 % (12.1-15.1); White Blood Count 10.18 10^3/uL (3.29-11.43)
[2024-12-27 12:01] LABS: Albumin Level 3.8 g/dL (3.5-5.2); Anion Gap 8.3 (5-19); Blood Urea Nitrogen 26 mg/dL (8-23); Calcium 9.9 mg/dL (8.5-10.5); Carbon Dioxide 36 mmol/L (22-29); Chloride 103 mmol/L (98-107); Creatinine Clr Calc Pharmacy 94.8432; Glucose 158 mg/dL (65-115); Magnesium 2.2 mg/dL (1.7-2.3); Phosphorus 2.7 mg/dL (2.5-4.5); Potassium 4.3 mmol/L (3.5-5.1); Sodium 143 mmol/L (136-145)
[2024-12-27] MEDS: linezolid premix 600 MG/300 ML PREMIX 300 MG IV (12:30)
[2024-12-27] MEDS: cefTRIAXone 1,000 mg SDV 1000 MG IVP (12:32)
[2024-12-27] MEDS: insulin lispro 100 unit/1 mL SUBCUT (12:33)
--- NOTE | 2024-12-27 14:13 | PC.NURSE ---
Report to [facility] [place]: Attempted to call report to [facility] [place], went to voicemail with a full mailbox.
--- NOTE | 2024-12-27 15:59 | PC.OT ---
OT TREATMENT HELD DUE TO SCHEDULED PATIENT D/C TODAY
== END 2024-12-27 15:31 | disposition skilled nursing facility (03) | DRG 208 ==
LOC: ER 06:13 → ICU 07:54 → MEDSURG 12-25 19:05
PROVIDERS: Family Medicine; Admitting Provider Student in an Organized Health Care Education/Training Program; Emergency Provider Family Medicine; PCP Nurse Practitioner; Visit Provider Internal Medicine
DX: J18.9 Pneumonia, unspecified organism (principal); J96.22 Acute and chronic respiratory failure with hypercapnia; J96.21 Acute and chronic respiratory failure with hypoxia; J44.0 Chronic obstructive pulmonary disease with (acute) lower respiratory infection; I50.30 Unspecified diastolic (congestive) heart failure; E87.29 Other acidosis; E66.2 Morbid (severe) obesity with alveolar hypoventilation; J44.1 Chronic obstructive pulmonary disease with (acute) exacerbation; B97.4 Respiratory syncytial virus as the cause of diseases classified elsewhere; I11.0 Hypertensive heart disease with heart failure; E11.9 Type 2 diabetes mellitus without complications; F03.90 Unspecified dementia, unspecified severity, without behavioral disturbance, psychotic disturbance, mood disturbance, and anxiety; E78.5 Hyperlipidemia, unspecified; G47.33 Obstructive sleep apnea (adult) (pediatric); B95.62 Methicillin resistant Staphylococcus aureus infection as the cause of diseases classified elsewhere; Z68.33 Body mass index [BMI] 33.0-33.9, adult; I25.10 Atherosclerotic heart disease of native coronary artery without angina pectoris; Z99.81 Dependence on supplemental oxygen; Z79.84 Long term (current) use of oral hypoglycemic drugs; Z79.82 Long term (current) use of aspirin; Z79.02 Long term (current) use of antithrombotics/antiplatelets; Z95.5 Presence of coronary angioplasty implant and graft
CPT/HCPCS: 36415; 36416; 36600; 51702; 71045; 71250; 73700; 80051; 80053; 80061; 80069; 80202; 81001; 82330; 82607; 82746; 82805; 82962; 83036; 83540; 83550; 83605; 83735; 83880; 84100; 84145; 84443; 84484; 85007; 85025; 85378; 86403; 87040; 87070; 87205; 87637; 92507; 92526; 92610; 93005; 93306; 94002; 94003; 94640; 94660; 94664; 94799; 96365; 96366; 96367; 96372; 96374; 96376; 97161; 97165; 97530; 97535; 99291; 99292; J0330; J0696; J1100; J1644; J1815; J1940; J2020; J2250; J2470; J2543; J2919; J3010; J3370; J3372; J3490; J7512; J7614; J7626; J7644; Q0144

== ENCOUNTER 2025-01-29 22:17 | Emergency (ER) | payer MEDICARE, SELFPAY ==
[2025-01-29 22:20] VITALS: BP 109/52; PULSE 85; RESP 18; TEMP 36.8; O2SAT 87; BMI 38.0
--- NOTE | 2025-01-29 22:28 | PC.NURSE ---
pt is not able to answer SI questions at this time d/t AMS
--- NOTE | 2025-01-29 22:37 | XRR_ITS ---
PROCEDURE INFORMATION: Exam: XR Chest Exam date and time: 01/29/2025 10:47 PM Age: 75 years old Clinical indication: Shortness of breath; Prior surgery; Surgery date: 6+ months; Surgery type: Cardiac stents; Additional info: Altered mental status, hypoxia TECHNIQUE: Imaging protocol: Radiologic exam of the chest. Views: 1 view. COMPARISON: CR XR chest 1V portable [id number] 12/25/2024 8:13 AM FINDINGS: Moderate to severe edema. Moderate effusions. Heart/Mediastinum: Cardiomegaly. Bones/joints: Unremarkable. XR/XR chest 1V portable [id number] IMPRESSION: Cardiomegaly. Edema. Effusions.
--- NOTE | 2025-01-29 22:38 | ECG_ITS ---
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
--- NOTE | 2025-01-29 22:39 | W.ED.AMS ---
HPI - Altered Mental Status General: Chief Complaint: Altered Mental Status Stated Complaint: sob Time Seen by Provider: 01/29/25 22:33 Source: EMS Mode of arrival: EMS Limitations: altered mental status History of Present Illness: Patient brought in by EMS from [facility] with complaints of altered mental status and low oxygen saturation. Patient is only responsive to painful stimuli. Patient is currently on 6 L of oxygen per nasal cannula and his O2 sat is 87%. Patient is unable to give us any history.Per chart review patient is on chronic 2 to 3 L of oxygen per nasal cannula Related Data Home Medications ?Medication ?Instructions ?Recorded ?Confirmed calcium carbonate (Calcium 600) 600 mg PO DAILY 12/01/19 12/23/24 lancets 33 gauge (RedVision Systemuch [employer] TV #100 ea 12/01/19 12/23/24 Lancets) [id number]-eqicc 200 mcg-lycop 1 tab PO DAILY 12/01/19 12/23/24 175 mcg-lutei 250 mcg-herb 178 tablet (Oliver Multivitamin For Men) diclofenac sodium 1 % topical gel 4 g topical Q8H PRN Pain 11/07/23 12/23/24 losartan 25 mg tablet 50 mg PO DAILY 09/18/24 12/23/24 Held on 12/27/24. Instructions: Resume on 01/10/25. Hold for 14 days. Monitor blood pressures during this time to see if still required. acetaminophen 325 mg tablet 650 mg PO Q4H PRN Pain 12/23/24 12/23/24 aluminum-mag hydroxide-simethicone 30 ml PO Q5W PRN Indigestion 12/23/24 12/23/24 200 mg-200 mg-20 mg/5 mL oral susp aspirin 81 mg tablet,delayed 81 mg PO DAILY 12/23/24 12/23/24 release bisacodyl 10 mg rectal suppository 10 mg IN DAILY PRN Constipation 12/23/24 12/23/24 (Dulcolax (bisacodyl)) glipizide 5 mg tablet 5 mg PO DAILY 12/23/24 12/23/24 loperamide 2 mg tablet (Imodium 2 mg PO Q24H PRN loose stools 12/23/24 12/23/24 A-D) magnesium hydroxide 400 mg/5 mL 30 ml PO DAILY PRN Constipation 12/23/24 12/23/24 oral suspension (Milk of Magnesia) melatonin 3 mg tablet 3 mg PO BEDTIME 12/23/24 12/23/24 menthol 2.7 mg lozenges (Cough 2.7 mg mucous membrane Q2H PRN 12/23/24 12/23/24 Drops) Cough polyvinyl alcohol 1.4 % eye drops 2 drp ophthalmic (eye) TID 12/23/24 12/23/24 (Artificial Tears (polyvinyl alcohol)) sertraline 25 mg tablet 25 mg PO BEDTIME 12/23/24 12/23/24 sodium phosphates 19 gram-7 118 ml IN DAILY PRN Constipation 12/23/24 12/23/24 gram/118 mL enema (Fleet Enema) tizanidine 4 mg tablet 4 mg PO Q8H PRN Pain 12/23/24 12/23/24 Previous Rx's ?Medication ?Instructions ?Recorded lancets 30 gauge (Ultra Fine #100 ea 07/31/20 Lancets) blood sugar diagnostic #50 ea 04/28/22 oxygen concentrator w/ portable #1 ea 02/16/23 Hospital Bed #1 ea 02/18/23 clopidogrel 75 mg tablet 75 mg PO DAILY #30 tabs 09/23/23 diltiazem HCl 30 mg tablet 30 mg PO BID #60 tabs 09/23/23 (Cardizem) empagliflozin 25 mg tablet 25 mg PO QAM #30 tabs 09/23/23 (Jardiance) evolocumab 140 mg/mL subcutaneous 140 mg SUBCUT Q14D #2 mL 09/23/23 pen injector (Jonas Stephenson) fluticasone propionate 50 1 spray intranasal Q12H Nasal 09/23/23 mcg/actuation nasal Congestion #15.8 mL spray,suspension (Flonase Allergy Relief) levothyroxine 100 mcg tablet 100 mcg PO DAILY #30 tabs 09/23/23 metoprolol succinate 25 mg 25 mg PO DAILY #30 tabs 09/23/23 tablet,extended release 24 hr (Toprol XL) tamsulosin 0.4 mg capsule (Flomax) 0.4 mg PO DAILY #30 caps 09/23/23 tizanidine 2 mg tablet 2 mg PO BEDTIME Muscle Spasm #30 09/23/23 tabs topiramate 50 mg tablet (Topamax) 50 mg PO BID #60 tabs 09/23/23 Allergies Allergy/AdvReac Type Severity Reaction Status Date / Time No Known Allergies Allergy Verified 01/29/25 22:28 Review of Systems General: Reports: ROS unobtainable due to mental status PFSH ED PFSH: Medical History Heart failure with preserved ejection fraction Type 2 diabetes mellitus RSV (respiratory syncytial virus infection) Dementia Obesity hypoventilation syndrome intolerant of bipap, on oxygen History of PFTs 2019 restrictive ventilatory defect, mil decrease DLCO COVID-19 10/2021 Hypoxia Mixed anxiety depressive disorder Essential (primary) hypertension Aneurysm of unspecified site Vitamin D insufficiency Cellulitis of left eyelid O2 dependent Platelets decreased Left sciatic nerve pain Type 2 diabetes mellitus with hyperglycemia Atrial tachycardia Shortness of breath Osteoarthritis of both knees Heartburn Helminthiasis, unspecified ASHD (arteriosclerotic heart disease) Surgical History S/P PTCA (percutaneous transluminal coronary angioplasty) LAD H/O eye surgery Left Family History Sister Cancer Other CAD (coronary artery disease) Diabetes Stroke Social History Smoking and tobacco/nicotine status: former use of tobacco/nicotine Second hand smoke exposure: No Alcohol intake: former Substance/Drug Use: never Adopted: No Caregiver/support person: No Lives independently: Yes Household members: spouse Housing: House Marital status: Current occupational status: retired Do you think of yourself as: Straight/Heterosexual Current gender identity: Male Physical Exam Const: OTHER: Responsive to painful stimuli HENMT: COMMON NORMALS: normocephalic, atraumatic, external ears normal, moist oral mucous membranes and oropharynx normal HEAD & SCALP: normocephalic and atraumatic EXTERNAL EAR: Yes external ears normal Eye: COMMON NORMALS: Equal, round and reactive pupils present, EOMs intact bilaterally, conjunctivae normal and no scleral icterus CONJUNCTIVA: Yes conjunctivae normal PUPIL: Yes Equal, round and reactive pupils present Neck/C-Spine: COMMON NORMALS: no JVD Chest: COMMONS NORMALS: normal inspection of the chest and normal palpation of entire chest wall Resp: COMMON NORMALS: normal respiratory effort, No retractions and No use of accessory muscles; negative for clear to auscultation bilaterally (Clear but decreased bilaterally) AUSCULTATION: not clear to auscultation bilaterally (Clear but decreased bilaterally) Cardio: COMMON NORMALS: no JVD, regular rate, regular rhythm, S1 normal heart sound present, S2 normal heart sound present, No gallops present (Cardio), No clicks present (Cardio) and No murmurs present (Cardio) RATE: regular rate RHYTHM: regular rhythm HEART SOUNDS: S1 normal heart sound present and S2 normal heart sound present GI: COMMON NORMALS: Normal to inspection, nondistended, normoactive bowel sounds present, Soft to palpation, non-tender, No hepatosplenomegaly present and no masses PALPATION: Yes Soft to palpation and Yes No hepatosplenomegaly present Extremity: OTHER: Negative pretibial pitting edema bilaterally Neuro: OTHER: Responsive to painful stimuli Course Vital Signs: Vital signs: Vital Signs Temperature 98.2 F 01/29/25 22:20 Pulse Rate 73 01/29/25 23:28 Respiratory Rate 18 01/29/25 22:20 Blood Pressure 164/92 01/29/25 23:28 Pulse Oximetry 98 01/29/25 23:28 Oxygen Delivery Me thod Room Air 01/29/25 23:28 Oxygen Flow Rate 6 01/29/25 22:20 Fraction of Inspir ed Oxygen 55 01/29/25 23:04 MDM - Altered Mental Status Medical Decision Making Nursing called the power of assistant prosecuting attorney was one of his daughters. They state the power of assistant prosecuting attorney/DNR/DNI paperwork at [place] is up-to-date current and these are his wishes and they wish to comply with his wishes. Called [facility] since he is on BiPAP they would require him to go to the ICU or stepdown and they do not have any beds at this moment. Called [facility] they said they had a bed at [place], talked with Dr. Torres who accepted the patient there. ABGs was obtained which showed patient was acidotic and hypercapnic. Patient was placed immediately on BiPAP, the rest of the lab work was obtained. Repeat ABGs showed mild improvement. Chest x-ray showed cardiomegaly, edema, effusion, Medical Records I reviewed the patient's medical records. Lab Data I reviewed the patient's lab results. 01/29/25 22:32 01/29/25 22:32 Radiology Impressions Chest X-Ray 01/29/25 22:37 IMPRESSION: Cardiomegaly. Edema. Effusions. Laboratory Results WBC 8.67 10^3/uL (3.29-11.43) 01/29/25 22:32 RBC 3.95 10^6/uL (3.85-5.65) 01/29/25 22: Hgb 11.70 g/dL (11.27-16.99) 01/29/25 22:32 Hct 42.0 % (37-53) 01/29/25 22: MCV 106.3 fl (82-101) H 01/29/25 22: MCH 29.6 pg (27-33) 01/29/25 22: MCHC 27.9 g/dL (30-55) L 01/29/25 22: RDW 14.0 % (12.1-15.1) 01/29/25: Plt Count 146 10^3/cmm (157-399) L 01/29/25 22:32 MPV 10.6 fL (7.4-10.4) H 01/29/25 22:32 Neut % (Auto) 83.0 % 01/29/25: Lymph % (Auto) 8.1 % 01/29/25: Cascade % (Auto) 6.8 % 01/29/25: Eos % (Auto) 0.3 % 01/29/25: Baso % (Auto) 0.2 % 01/29/25: Neut # (Auto) 7.19 10^3/uL (1.8-7.7) 01/29/25 22: Lymph # (Auto) 0.7 10^3/uL (0.8-4.8) L 01/29/25: Cascade # (Auto) 0.6 10^3/uL (0.2-0.9) 01/29/25 22: Eos # (Auto) 0.0 10^3/uL (0.0-0.8) 01/29/25 22:32 Baso # (Auto) 0.0 10^3/uL (0.0-0.1) 01/29/25 22:32 Nucleated RBC % (auto) 0 % 01/29/25 22:32 Nucleated RBCs # 0.0 /100WBC 01/29/25 22:32 PT 13.20 SECONDS (12.1-14.9) 01/29/25 22:32 INR 0.93 (0.8-1.2) 01/29/25 22:32 Specimen Type Arterial 01/29/25 23:26 Sample Site Radial, right 01/29/25 23:26 ABG pH 7.24 (7.35-7.45) L 01/29/25 23:26 ABG pCO2 100.0 mmHg (35-45) H* 01/29/25 23: ABG pO2 92.4 mmHg (80.0-100.0) 01/29/25 23: ABG PO2/FiO2 Ratio 168 01/29/25 23:26 ABG HCO3 43.0 mmol/L (22-26) H 01/29/25 23: ABG O2 Saturation 97.5 01/29/25 23:26 ABG Base Excess 11.9 mmol/L (-2.0-2.0) H 01/29/25 23:26 Drake Test Pos 01/29/25 23:26 A-a O2 Gradient 23.3 mmHg (5-10) H 01/29/25 23:26 Hematocrit 36.6 % (42-52) L 01/29/25 23: Hgb O2 Saturation 94.6 % (95-100) L 01/29/25 23:26 Carboxyhemoglobin 1.9 %THgb (0.4-20.1) 01/29/25 23:26 Methemoglobin 1.1 % (0.4-1.5) 01/29/25 23:26 Total Hemoglobin 11.9 g/dL (14-18) L 01/29/25 23:26 Sodium 143.0 mmol/L (131-143) 01/29/25 23: Potassium 4.8 mmol/L (3.5-5.0) 01/29/25 23:26 Glucose 262.0 mg/dL (70-115) H 01/29/25 23: Ionized Calcium 1.3 mmol/L (1.1-1.4) 01/29/25 23:26 O2 Delivery Device Bipap 01/29/25 23:26 O2 Liters/Min 15.0 % 01/29/25 22:36 FiO2 55.0 % 01/29/25 23:26 Market Development Analyst ID [email or web address] 01/29/25 23:26 Sodium 142 mmol/L (136-145) 01/29/25 22:32 Potassium 4.8 mmol/L (3.5-5.1) 01/29/25 22:32 Chloride 96 mmol/L (98-107) L 01/29/25 22:32 Carbon Dioxide 40 mmol/L (22-29) H 01/29/25 22:32 Anion Gap 10.8 (5-19) 01/29/25 22:32 BUN 21 mg/dL (8-23) 01/29/25 22:32 Creatinine 0.7 mg/dL (0.7-1.2) 01/29/25 22:32 GFR Calculation Not Reportable 01/29/25 22:32 Glucose 291 mg/dL (65-115) H 01/29/25 22:32 Calculated Osmolality 308 mOsm/kg (285-295) H 01/29/25 22:32 Lactic Acid 1.3 mmol/L (0.5-2.2) 01/29/25 22:32 Calcium 9.4 mg/dL (8.5-10.5) 01/29/25 22:32 Magnesium 2.0 mg/dL (1.7-2.3) 01/29/25 22:32 Total Bilirubin 0.2 mg/dL (0.15-1.2) 01/29/25 22:32 AST 27 U/L (0-40) 01/29/25 22:32 ALT 38 U/L (0-41) 01/29/25 22:32 Alkaline Phosphatase 58 U/L (40-130) 01/29/25 22:32 Troponin T Baseline 16 ng/L (0-15) H 01/29/25 22:32 Troponin T 120 Minute 12.71 ng/L (0-15) 01/30/25 00:48 Delta Troponin T -3.29 ABS# (0-10) L 01/30/25 00:48 NT-Pro-B Natriuret Pep 441 pg/mL (0-125) H 01/29/25 22:32 Total Protein 7.1 g/dL (6.6-8.7) 01/29/25 22:32 Albumin 3.8 g/dL (3.5-5.2) 01/29/25 22:32 Globulin 3.3 g/dL (1.3-4.6) 01/29/25 22:32 Procalcitonin 0.07 ng/mL (0-0.5) 01/29/25 22:32 Urine Color Yellow (Yellow) 01/29/25 23:30 Urine Appearance Clear (CLEAR) 01/29/25 23:30 Urine pH 5.0 (5-7) 01/29/25 23:30 Ur Specific [place] 1.018 (1.005-1.030) 01/29/25 23: Urine Protein 1+ (Negative) A 01/29/25 23: Urine Glucose (UA) 2+ (Normal) H 01/29/25 23:30 Urine Ketones Negative (Negative) 01/29/25 23: Urine Blood Trace (Negative) A 01/29/25 23: Urine Nitrate Negative (Negative) 01/29/25 23:30 Urine Bilirubin Negative (Negative) 01/29/25 23:30 Urine Urobilinogen 1.0 mg/dL (Negative) 01/29/25 23:30 Ur Leukocyte Esterase Negative (Negative) 01/29/25 23:30 Urine RBC 0-4 /hpf (0-2) H 01/29/25 23:30 Urine WBC 0-4 /hpf (0-5) H 01/29/25 23:30 Ur Squamous Epith Cells 0-4 /hpf (0-5) H 01/29/25 23:30 Amorphous Sediment Not Reportable 01/29/25 23:30 Urine Bacteria Trace /hpf (NONE) 01/29/25 23:30 Hyaline Casts 0-4 /lpf H 01/29/25 23:30 Urine Opiates Screen Negative ng/mL (Negative) 01/29/25 23:30 Ur Barbiturates Screen Negative ng/mL (Negative) 01/29/25 23:30 Ur Phencyclidine Scrn Negative ng/mL (Negative) 01/29/25 23:30 Ur Amphetamines Screen Negative ng/mL (Negative) 01/29/25 23:30 U Benzodiazepines Scrn Negative ng/mL (Negative) 01/29/25 23:30 Urine Cocaine Screen Negative ng/mL (Negative) 01/29/25 23:30 U Marijuana (THC) Screen Negative ng/mL (Negative) 01/29/25 23:30 Ethyl Alcohol < 10 mg/dL (0-10) 01/29/25 22:32 Influenza A (PCR) Negative (Negative) 01/29/25 23:30 Influenza Type B (PCR) Negative (Negative) 01/29/25 23:30 RSV (PCR) Negative (Negative) 01/29/25 23:30 SARS-CoV-2 (PCR) Negative (Negative) 01/29/25 23:30 All radiology interpretation(s) finalized by discharge Discharge Plan Discharge Patient Disposition: Xfer Short-Term Hosp Clinical Impression: Acute on chronic respiratory failure with hypoxia and hypercapnia Altered mental status Qualifiers: Altered mental status type: somnolence Qualified Code(s): R40.0 - Somnolence Condition: Stable Referrals: Donnie Elias DO [Primary Care Provider] - Patient Instructions: Altered Mental Status (ED) Print Language: Amharic Coding Level of Care Code ED Manager Talent Acquisition for Jonathan Peña
[2025-01-29 22:45] LABS: Basophils % 0.2 %; Eosinophils % 0.3 %; Lymphocytes # 0.7 10^3/uL (0.8-4.8); Lymphocytes % 8.1 %; Mean Corpuscular HGB Conc 27.9 g/dL (30-55); Mean Corpuscular Hemoglobin 29.6 pg (27-33); Mean Corpuscular Volume 106.3 fl (82-101); Mean Platelet Volume 10.6 fL (7.4-10.4); Monocytes # 0.6 10^3/uL (0.2-0.9); Monocytes % 6.8 %; Neutrophils # 7.19 10^3/uL (1.8-7.7); Nucleated Red Blood Cells % 0 %; Platelet Count 146 10^3/cmm (157-399); Red Blood Count 3.95 10^6/uL (3.85-5.65); White Blood Count 8.67 10^3/uL (3.29-11.43)
[2025-01-29 22:46] LABS: Arterial Blood Gas Hematocrit 37.4 % (42-52); Base Excess ABG 11.4 mmol/L (-2.0-2.0); Blood Gas Sample Site Brachial, right; Blood Gas Sample Type Arterial; HCO3 ABG 44.4 mmol/L (22-26); HGB O2 Sat 90.9 % (95-100); Ionized Calcium Level - ABG 1.3 mmol/L (1.1-1.4); Methemoglobin 1.1 % (0.4-1.5); Oxygen Device OXY MASK; Oxygen Saturation ABG 93.8; PO2 ABG 74.1 mmHg (80.0-100.0); Potassium Level - ABG 4.6 mmol/L (3.5-5.0); Total Hemoglobin 12.2 g/dL (14-18)
[2025-01-29 22:47] LABS: ABG PCO2 > 102.0 mmHg (35-45); ABG PH Result 7.16 (7.35-7.45)
[2025-01-29 22:54] LABS: INR 0.93 (0.8-1.2)
[2025-01-29 23:00] LABS: Lactic Sepsis W/Reflex 1.3 mmol/L (0.5-2.2)
[2025-01-29 23:03] LABS: Troponin(5th) Baseline 16 ng/L (0-15)
[2025-01-29 23:04] VITALS: PULSE 89; RESP 18; O2SAT 92
[2025-01-29 23:12] LABS: NT Pro B Type Natriuretic Pept 441 pg/mL (0-125); Procalcitonin 0.07 ng/mL (0-0.5)
[2025-01-29 23:23] LABS: Alanine Aminotransferase 38 U/L (0-41); Albumin Level 3.8 g/dL (3.5-5.2); Alkaline Phosphatase 58 U/L (40-130); Anion Gap 10.8 (5-19); Aspartate Amino Transferase 27 U/L (0-40); Blood Urea Nitrogen 21 mg/dL (8-23); Calcium 9.4 mg/dL (8.5-10.5); Carbon Dioxide 40 mmol/L (22-29); Chloride 96 mmol/L (98-107); Creatinine Clr Calc Pharmacy 98.9991; Globulin 3.3 g/dL (1.3-4.6); Glucose 291 mg/dL (65-115); Osmolality Calculated 308 mOsm/kg (285-295); Potassium 4.8 mmol/L (3.5-5.1); Sodium 142 mmol/L (136-145); Total Bilirubin 0.2 mg/dL (0.15-1.2); Total Protein 7.1 g/dL (6.6-8.7)
[2025-01-29 23:24] LABS: Alcohol Level < 10 mg/dL (0-10)
[2025-01-29 23:28] VITALS: BP 164/92; PULSE 73; O2SAT 98
[2025-01-29 23:37] LABS: ABG PH Result 7.24 (7.35-7.45); Alveolar-Arterial Oxygen Gradi 23.3 mmHg (5-10); Arterial Blood Gas Hematocrit 36.6 % (42-52); Base Excess ABG 11.9 mmol/L (-2.0-2.0); Blood Gas Allen Test Pos; Blood Gas Sample Site Radial, right; Blood Gas Sample Type Arterial; Carboxyhemoglobin 1.9 %THgb (0.4-20.1); HGB O2 Sat 94.6 % (95-100); Ionized Calcium Level - ABG 1.3 mmol/L (1.1-1.4); Methemoglobin 1.1 % (0.4-1.5); Oxygen Device BIPAP; Oxygen Saturation ABG 97.5; PO2 ABG 92.4 mmHg (80.0-100.0); PO2 FiO2 Ratio Arterial Blood 168; Potassium Level - ABG 4.8 mmol/L (3.5-5.0); Total Hemoglobin 11.9 g/dL (14-18)
[2025-01-29 23:43] LABS: Bilirubin Urine Negative (Negative); Blood Urine Trace (Negative); Glucose Urine UA 2+ (Normal); Ketones Urine Negative (Negative); Leukocyte Esterase Urine Negative (Negative); Nitrate Urine Negative (Negative); Protein Urine 1+ (Negative); Specific Gravity, Urine 1.018 (1.005-1.030); Urine Appearance Clear (CLEAR); Urine Color Yellow (Yellow)
[2025-01-29 23:50] LABS: Amphetamines Screen Urine Negative (Negative); Barbiturates Screen Urine Negative (Negative); Benzodiazepines Screen Urine Negative (Negative); Cocaine Screen Urine Negative (Negative); Opiate Screen Urine Negative (Negative); PCP Screen Urine Negative (Negative); THC Screen Urine Negative (Negative)
[2025-01-30] VITALS (12 sets, daily range): BP systolic 76–118; BP diastolic 48–77; PULSE 66–95; RESP 18; O2SAT 93–98
[2025-01-30 00:09] LABS: Add Urine Microscopic? YES; Bacteria Urine TRACE /hpf; RBC Urine 0-4 /hpf (0-2); Squamous Epithelial Cell Urine 0-4 /hpf (0-5); UA Manual Slide Review YES; UA Slide Review UA Slide Review Perf; WBC Urine 0-4 /hpf (0-5)
[2025-01-30 00:10] LABS: Hyaline Casts Urine 0-4 /lpf
[2025-01-30 00:17] LABS: Influenza A NEGATIVE (Negative); Influenza B NEGATIVE (Negative); Respiratory Syncytial Virus Ce NEGATIVE (Negative); SARS-CoV-2 PCR NEGATIVE (Negative)
[2025-01-30] MEDS: LORazepam 2 mg/mL INJ 1 mL IVP (01:00)
[2025-01-30 01:23] LABS: Troponin 5 2HR 12.71 ng/L (0-15)
[2025-01-30 01:24] LABS: Troponin 5 2HR Delta -3.29 ABS# (0-10)
[2025-01-30] MEDS: sodium chloride 0.9% 1,000 ML 999 ML IV (01:46)
[2025-01-30 04:38] LABS: Troponin 5 6HR 18.15 ng/L (0-15); Troponin 5 6HR Delta 2.15 ng/L (0-12)
--- NOTE | 2025-01-30 06:29 | ECG_ITS ---
[facility] Test Date: 2025-01-30 Pat Name: Sathish Caballero Department: Room: Gender: Male Director Of Archives: : 1950 Requested By: Humza Herrmann Order Number: [id number] Reading MD: Measurements Intervals [place] Rate: 61 P: 63 ND: 169 QRS: 71 QRSD: 107 T: 50 QT: 364 QTc: 368 Interpretive Statements SINUS RHYTHM WITH SINUS ARRHYTHMIA INCOMPLETE RIGHT BUNDLE BRANCH BLOCK [90+ ms QRS DURATION, TERMINAL R IN V1/V2, 40+ ms S IN I/aVL/V4/V5/V6] [id number]
--- NOTE | 2025-01-30 06:30 | ECG_ITS ---
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
== END 2025-01-30 07:57 | disposition short-term general hospital (02) ==
PROVIDERS: Emergency Provider Emergency Medicine; PCP Internal Medicine
DX: J96.22 Acute and chronic respiratory failure with hypercapnia (principal); J96.21 Acute and chronic respiratory failure with hypoxia; R40.0 Somnolence; Z11.52 Encounter for screening for COVID-19; Z87.891 Personal history of nicotine dependence; I11.0 Hypertensive heart disease with heart failure; I50.30 Unspecified diastolic (congestive) heart failure
CPT/HCPCS: 36415; 36600; 71045; 80051; 80053; 80306; 80307; 81001; 82330; 82805; 83605; 83735; 83880; 84145; 84484; 85025; 85610; 87637; 93005; 94660; 96361; 96374; 99285; J2060; J7030